=== PATIENT | female | born 1955 | race Hispanic/Latino ===

== ENCOUNTER → 2019-03-11 | Outpatient (CLI) | payer OTHER | END | disposition home or self-care (01) | LOC: RAH 15:30 | PROVIDERS: ATTEND Internal Medicine | DX: M16.12 Unilateral primary osteoarthritis, left hip (principal) | CPT/HCPCS: 73502 ==

== ENCOUNTER → 2023-08-03 | Outpatient (CLI) | payer OTHER | END | disposition home or self-care (01) | LOC: RAH 10:47 | PROVIDERS: ATTEND Internal Medicine | DX: S09.93XA Unspecified injury of face, initial encounter (principal); X58.XXXA Exposure to other specified factors, initial encounter; Y93.89 Activity, other specified; Y92.89 Other specified places as the place of occurrence of the external cause; Y99.8 Other external cause status | CPT/HCPCS: 70150; 70250 ==

== ENCOUNTER → 2023-12-21 | Outpatient (CLI) | payer OTHER ==
[~2023-12-21] MED LIST: AEC81 PO; ASCO100033 PO; ATOR20TA65 PO; EMPA10TA PO; GLIM4TAB36 PO; HYDR25TA67 PO; LEFL10TA19 PO; MAGN200T4 PO; METF-444 PO; METO-409 PO; PYRI100L2 PO; TICA90TA PO; VIT1CAPS49 PO; calcium; folic acid PO
== END | disposition home or self-care (01) ==
LOC: RAH 13:17
PROVIDERS: ATTEND Internal Medicine
DX: R22.41 Localized swelling, mass and lump, right lower limb (principal)
CPT/HCPCS: 73610; 93971

== ENCOUNTER → 2024-07-04 | Outpatient (CLI) | payer OTHER ==
[2024-07-04] MEDS: REGADENOSON 0.4 MG/5 ML PF SYG IVP SCH (11:22)
== END | disposition home or self-care (01) ==
LOC: RAH 08:49
PROVIDERS: ATTEND Internal Medicine Interventional Cardiology
DX: R07.9 Chest pain, unspecified (principal)
CPT/HCPCS: 78452; 93017; J2785; A9500 ×2

== ENCOUNTER → 2024-09-12 | Outpatient (CLI) | payer OTHER ==
--- NOTE | 2024-09-12 13:54 | HMCIMG ---
MRI LUMBAR SPINE WITHOUT CONTRAST INDICATION: M48.061 spinal stenosis, lumbar region without neurogenic claudication, pain runs to right lower extremity COMPARISON: None PARAMETERS: Long and short axis fat and water weighted sequences were obtained through the lumbar spine. FINDINGS: Normal lordosis of the lumbar spine is maintained. The lumbar vertebral bodies are normal in height, without evidence for acute compression fracture or osseous marrow replacing process. The conus medullaris is normal in signal and terminates at the appropriate level. Multilevel mild anterior endplate osteophytic spurring. Small nonmarginal syndesmophyte arises anteriorly at the L2-L3 level. T12-L1: No significant disc displacement, neuroforaminal narrowing, or central canal stenosis. Nominal right facet disease. L1-L2: No significant disc displacement, neuroforaminal narrowing, or central canal stenosis. Mild to moderate right facet disease. L2-L3: Shallow posterior disc displacement, including shallow left foraminal disc protrusion greater than shallow right foraminal disc displacement, mild enlargement of the posterior epidural fat pad, and mild disc height loss contributing to mild central canal stenosis and mild left neuroforaminal narrowing. L3-L4: Shallow posterior disc displacement and, including rods based left foraminal disc protrusion greater than right foraminal disc displacement, mild disc height loss, mild bilateral ligamentum flavum hypertrophy, and mild left facet disease contributing to moderate left neuroforaminal narrowing and mild right inferior neural foraminal narrowing without any significant central canal stenosis. L4-L5: Broad-based right foraminal disc protrusion, extremely shallow posterior disc displacement, mild disc height loss, and nominal bilateral facet disease contributing to severe right neuroforaminal narrowing without any significant central canal stenosis. L5-S1: Extremely shallow posterior rightward disc displacement with larger right foraminal component, moderate right disc height loss, and mild right facet disease contributing to severe right neural foraminal narrowing without any significant central canal stenosis. No evidence for intraannular tear or discitis. The pre- and paraspinous soft tissues appear normal. ANCILLARY FINDINGS: None. IMPRESSION: 1. Severe right neuroforaminal narrowing at the L4-L5 and L5-S1 levels. 2. Moderate left neuroforaminal narrowing and mild right inferior neural foraminal narrowing at the L3-L4 level. 3. Level by level analysis, additional minor degenerative changes, and pertinent negatives as reported.
== END | disposition home or self-care (01) ==
LOC: RAH 12:36
PROVIDERS: ATTEND Internal Medicine
DX: M47.815 Spondylosis without myelopathy or radiculopathy, thoracolumbar region (principal); M47.896 Other spondylosis, lumbar region; M48.07 Spinal stenosis, lumbosacral region
CPT/HCPCS: 72148

== ENCOUNTER 2024-12-03 22:52 | Emergency (ER) | payer OTHER ==
[~2024-12-03] VITALS: Ht 149.9 cm; Wt 65.3 kg
[~2024-12-03 22:52] MED LIST changes: -ASCO100033 PO; -ATOR20TA65 PO; +ATOR40TA71 PO; +CLOP75TA32 PO; -EMPA10TA PO; -HYDR25TA67 PO; +INSU3INS3 SQ; +ISOS30TA92 PO; +LORA10TA7 PO; +MAGN100T5 PO; -MAGN200T4 PO; -METF-444 PO; +METO-391 PO; -METO-409 PO; +NIFE-78 PO; +NITR0.4T SL; +SPIR25TA6 PO; -TICA90TA PO; -VIT1CAPS49 PO; -calcium; -folic acid PO
[2024-12-03 23:58] LABS: BASOPHILS # (AUTO) 0.06 K/uL (0.00-0.20); EOSINOPHILS # (AUTO) 0.12 K/uL (0.00-0.70); IMMATURE GRANULOCYTE ABSOLUTE 0.02 K/uL (0-1); LYMPHOCYTES # (AUTO) 0.9 K/uL (1.0-4.8); LYMPHOCYTES % (AUTO) 15.8 % (21.0-51.0); MEAN CORPUSCULAR HEMOGLOBIN 30.9 pg (27.0-33.0); MEAN CORPUSCULAR HGB CONC 33.1 g/dL (32.0-36.0); MEAN CORPUSCULAR VOLUME 93.5 fL (79-99); MONOCYTES # (AUTO) 0.5 K/uL (0.1-1.0); MONOCYTES % (AUTO) 7.6 % (3.0-13.0); NEUTROPHILS # (AUTO) 4.3 K/uL (1.8-7.7); NEUTROPHILS % (AUTO) 73.3 % (40.0-77.0); PLATELET COUNT (AUTO) 288 K/uL (130-400); RED BLOOD CELL COUNT(AUTO) 4.17 MIL/uL (4.00-5.50); RED CELL DISTRIBUTION WIDTH 12.7 % (11.0-15.5); WHITE BLOOD COUNT (AUTO) 5.9 K/uL (4.8-10.8)
[2024-12-04 00:06] LABS: POTASSIUM 4.3 mmol/L (3.5-5.1)
[2024-12-04 00:22] LABS: B-TYPE NATRIURETIC PEPTIDE 217 pg/mL (0-100)
--- NOTE | 2024-12-04 00:47 | ERN ---
ED Note History of Present Illness Stated Complaint: C/O PALPITATIONS W/ HEADACHE Chief Complaint: Palpitations Time Seen by MD: 23:16 Time Seen by Midlevel: 23:20 Dictation: Ms. Milligan is a 69 year old female history of CAD/NSTEMI/PCI, hypertension, hyp erlipidemia, type 2 diabetes, CKD, GERD, rheumatoid arthritis, osteoporosis, and lumbar stenosis who presented to the emergency department this evening for evaluation of palpitations. She states that this morning when she woke up she felt her heart was racing. This happened again this evening prompting her to come to the hospital. She states that palpitations occur at rest. Each time she experienced this racing and fluttering in the chest she took three sublingual nitroglycerin tablets. She did deny having any chest pain. She also denies fever, chills, shortness of breath, cough, chest pain, palpitations, edema, abdominal pain, nausea, vomiting, hematemesis, constipation, diarrhea, melena, hematochezia, dysuria, headache, dizziness, or focal weakne ss/paresthesia. She was discharged from the hospital on 11/21 following admission for NSTEMI and pericardial effusion. Cardiology was consulted and she underwent left heart catheterization with stent placed to left circumflex. She states she has follow up appointment with Dr. Baxter tomorrow. Allergies: Coded Allergies: lisinopril (Unverified Allergy, Intermediate, 11/02/23) morphine (Unverified Allergy, Intermediate, 11/02/23) Penicillins (Unverified Allergy, Unknown, 11/02/23) Uptrlwb-RDB-GiS Reductase Inhibitor (Unverified Allergy, Unknown, 11/02/23) amlodipine (Unverified Allergy, Unknown, 11/02/23) dapagliflozin (Unverified Allergy, Unknown, 11/02/23) diphenhydramine (Unverified Allergy, Unknown, 11/02/23) hydralazine (Unverified Allergy, Unknown, 11/18/24) DOES NOT RECALL BUT STATES HAS ALLERGY losartan (Unverified Allergy, Unknown, 11/02/23) pentazocine (Unverified Allergy, Unknown, 11/02/23) saxagliptin (Unverified Allergy, Unknown, 11/02/23) valsartan (Unverified Allergy, Unknown, 11/02/23) Home Meds Active Scripts Isosorbide Mononitrate (Isosorbide Mononitrate ER) 30 Mg Tab.er.24h, 1 TAB PO DAILY for 30 Days, #30 TAB 0 Refills Prov:MARIAH REECE MD 11/19/24 Nifedipine (Nifedipine ER) 30 Mg Tablet.er, 1 TAB PO DAILY for 30 Days, #30 TAB 3 Refills Prov:MARIAH REECE MD 11/19/24 Nitroglycerin (Nitrostat) 0.4 Mg Tab.subl, 1 TAB SL AD for chest pain, #25 TAB 3 Refills 1st sign of attack; may repeat every 5 mins; if pain persists after 3 in 15 min, medical attention is recommended Prov:MARIAH REECE MD 11/19/24 Atorvastatin Calcium (Atorvastatin Calcium) 40 Mg Tablet, 1 TAB PO DAILY for 100 Days, #100 TAB 1 Refill Prov:MARIAH REECE MD 11/19/24 Clopidogrel Bisulfate (Clopidogrel) 75 Mg Tablet, 1 TAB PO DAILY for 30 Days, #30 TAB 0 Refills Prov:MARIAH REECE MD 11/18/24 Metoprolol Succinate (Metoprolol Succinate) 50 Mg Tab.er.24h, 1 TAB PO DAILY for 30 Days, #30 TAB 0 Refills Prov:MARIAH REECE MD 11/18/24 Spironolactone (Spironolactone) 25 Mg Tablet, 1 TAB PO DAILY for 30 Days, #30 TAB 0 Refills Prov:MARIAH REECE MD 11/18/24 Loratadine (Loratadine) 10 Mg Tablet, 1 TAB PO DAILY for allergy symptoms for 30 Days, #30 TAB 0 Refills Prov:MARIAH REECE MD 11/18/24 Insulin Glargine,Hum.rec.anlog (Lantus Solostar) 100 Unit/Ml (3 Ml) Insuln.pen, 30 UNIT SQ DAILY for 30 Days, #15 ML 0 Refills Prov:MARIAH REECE MD 11/18/24 Leflunomide (Leflunomide) 10 Mg Tablet, 10 MG PO DAILY, #90 TAB 1 Refill Prov:MARIAH REECE MD 11/02/23 Aspirin (ASPIRIN 81 MG ECTAB) 81 Mg Ectab, 81 MG PO DAILY for 30 Days, #90 TAB.EC 1 Refill Prov:MARIAH REECE MD 11/02/23 Reported Medications Pyridoxine HCl (Vitamin B6) (Vitamin B6) 100 Mg/2.5 Ml Liquid, 100 MG PO DAILYLUNCH 11/18/24 Magnesium Amino Acid Chelate (Magnesium) 100 Mg Tablet, 100 MG PO DAILY, TAB 11/18/24 Glimepiride (Glimepiride) 4 Mg Tablet, 4 MG PO BID, TAB 11/02/23 Past Medical History Past Medical History: Diabetes-Type II, Fibromyalgia, High Cholesterol, Hypertension, ME, Other Additional Past Medical Hx: RHEUMATOID ARTHRITIS, SHINGLES Surgical History: Hysterectomy, CABG, BTL Surgical History Other: CABF X 4, KNEE LEFT, CARPEL TUNNEL RT HAND,CARDIAC STENT PSYCH History: no pertinent psych hx History: Not Applicable RN Note Reviewed/Agreed w/PFSH: Yes Review of System Dictation REVIEW OF SYSTEMS: CONSTITUTIONAL: Patient denies fevers, chills, sweats and weight changes. EYES: Patient denies any visual symptoms. EARS, NOSE, AND THROAT: No difficulties with hearing. No symptoms of rhinitis or sore throat. CARDIOVASCULAR: Patient denies chest pains, orthopnea and paroxysmal nocturnal dyspnea. Reports recent left heart catheterization with stent. Reports palpitations/rapid heart rate. RESPIRATORY: No dyspnea on exertion, no wheezing or cough. GI: No nausea, vomiting, diarrhea, constipation, abdominal pain, hematochezia or melena. : No urinary hesitancy or dribbling. No nocturia or urinary frequency. No abnormal urethral discharge. MUSCULOSKELETAL: No myalgias or arthralgias. NEUROLOGIC: No chronic headaches, no seizures. Patient denies numbness, tingling or weakness. PSYCHIATRIC: Patient denies problems with mood disturbance. No problems with anxiety. ENDOCRINE: No excessive urination or excessive thirst. DERMATOLOGIC: Patient denies any rashes or skin changes. Initial Vital Sign VS Vital Signs Date Time Temp Pulse Resp B/P (MAP) Pulse Ox O2 Delivery O2 Flow Rate FiO2 12/03/24 22:54 98.6 93 20 200/79 98 Room Air 12/03/24 23:51 0 21 Physical Exam Dictation Vital signs: Reviewed. 156/66. Afebrile. Constitutional: No acute distress. Non-toxic appearing. Head/Face: Normocephalic, atraumatic. Eyes: Periorbital areas with no swelling, redness, or edema. Lids and lashes are normal. Conjunctival injection is absent. Sclera anicteric. Pupils equal, round, reactive to light. ENT: Pinnas intact and no signs of trauma or erythema. Ear canals clear and no discharge. TMs no erythema. No nasal discharge or bleeding noted. Oropharynx with no exudate, redness, swelling, masses, exudates, or evidence of obstruction. Uvula midline. Mucous membranes moist. Neck: Trachea midline, no masses palpated, and no cervical lymphadenopathy. No swelling. Supple, full range of motion. Chest/Axilla: No tenderness, no crepitus, no paradoxical movement, no retrac tions. Cardiovascular: Regular rate, regular rhythm, no murmur, no gallops. Symmetric pulses. No peripheral edema. Chest pain 0/10. Twelve lead EKG reflects a sinus rhythm without ST elevation or depression; rate 84. BP Respiratory: Respirations even and unlabored. Lung sounds clear; no wheezes, rales or rhonchi. Room air SpO2 96% Gastrointestinal: Inspection is normal. No distention is appreciated. Bowel sounds are normal. No mass or organomegaly . There is no tenderness. No rebound. No rigidity. No voluntary or involuntary guarding. No Cruz's sign. Neurological: Normal speech, gross motor function intact, gross sensory function intact. No focal weakness/Paresthesia. Musculoskeletal/Extremities: All extremities have full range of motion, no pain or tenderness on palpation. Symmetric pulses. Integumentary: Intact. Skin is normal color, warm and dry. Cap refill less than 3 seconds. Results (Laboratory/Radiology) Laboratory/Radiology Laboratory Tests Test 12/03/24 23:49 12/04/24 00:04 White Blood Count 5.9 K/uL (4.8-10.8) Red Blood Count 4.17 MIL/uL (4.00-5.50) Hemoglobin 12.9 g/dL (12.0-16.0) Hematocrit 39.0 % (36-48) Mean Corpuscular Volume 93.5 fL (79-99) Mean Corpuscular Hemoglobin 30.9 pg (27.0-33.0) Mean Corpuscular Hemoglobin Concent 33.1 g/dL (32.0-36.0) Red Cell Distribution Width 12.7 % (11.0-15.5) Platelet Count 288 K/uL (130-400) Mean Platelet Volume 9.9 fL (7.5-10.5) Immature Granulocyte % (Auto) 0.3 % (0-1) Neutrophils (%) (Auto) 73.3 % (40.0-77.0) Lymphocytes (%) (Auto) 15.8 % (21.0-51.0) L Monocytes (%) (Auto) 7.6 % (3.0-13.0) Eosinophils (%) (Auto) 2.0 % (0.0-8.0) Basophils (%) (Auto) 1.0 % (0.0-5.0) Neutrophils # (Auto) 4.3 K/uL (1.8-7.7) Lymphocytes # (Auto) 0.9 K/uL (1.0-4.8) L Monocytes # (Auto) 0.5 K/uL (0.1-1.0) Eosinophils # (Auto) 0.12 K/uL (0.00-0.70) Basophils # (Auto) 0.06 K/uL (0.00-0.20) Absolute Immature Granulocyte (auto 0.02 K/uL (0-1) Nucleated Red Blood Cells 0.0 % (0.0-0.19) Sodium Level 137 mmol/L (136-145) Potassium Level 4.3 mmol/L (3.5-5.1) Chloride Level 99 mmol/L (101-111) L Carbon Dioxide Level 32 mmol/L (21-32) Blood Urea Nitrogen 22 mg/dL (7-18) H Creatinine 1.0 mg/dL (0.5-1.0) Glomerular Filtration Rate Calc 61 mL/min (>90) Random Glucose 365 mg/dL (70-105) H Total Calcium 9.2 mg/dL (8.5-10.1) Troponin I High Sensitivity 26 ng/L (4-50) B-Type Natriuretic Peptide 217 pg/mL (0-100) H Urine Color COLORLESS (YELLOW) Urine Appearance CLEAR (CLEAR) Urine pH 7.5 (5.0-8.0) Urine Specific Latty 1.005 (1.001-1.031) Urine Protein 20 mg/dL (NEGATIVE) H Urine Glucose (UA) >=1000 mg/dL (NEGATIVE) H Urine Ketones NEGATIVE mg/dL (NEGATIVE) Urine Occult Blood NEGATIVE (NEGATIVE) Urine Nitrate NEGATIVE (NEGATIVE) Urine Bilirubin NEGATIVE mg/dL (NEGATIVE) Urine Urobilinogen 0.2 mg/dL (0.2-1.0) Urine Leukocyte Esterase NEGATIVE Kathryn/uL Urine RBC None /HPF (0-1) Urine WBC 0-1 /HPF (0-1) Urine Squamous Epithelial Cells RARE /HPF (0-2) Urine Bacteria RARE /HPF (None Seen) Labs Reviewed?: Yes EKG Comment: EKG Interpretation: Time Reviewed: 2302 Ventricular rate:84 bpm FL Interval: 132 ms QRS duration: [address] segment elevation or depression. Clinical impression: Sinus rhythm EKG Reviewed and interpreted by Dr. Dylan Johnson ED Course ED Course Orders Procedure Category Date Status Time 12 Lead Ekg Tracing- EKG 12/03/24 Logged Technical 23:29 Cbc With Differential LAB 12/03/24 Complete 23:29 Basic Metabolic Panel LAB 12/03/24 Complete 23:29 Troponin I High LAB 12/03/24 Complete Sensitivity 23:29 Chest 1vw RAD 12/03/24 Taken 23:29 B-Type Natriuretic LAB 12/03/24 Complete Peptide 23:29 Insulin Regular, PHA 12/04/24 Complete Human 3ml (Humulin R 01:00 Metoprolol Succinate PHA 12/04/24 Complete (Toprol Xl) 01:00 Urinalysis LAB 12/04/24 Complete W/Microscopic 00:04 Random Accucheck At CPOE 12/04/24 Transmitted Bedside 01:49 Current Medications Medications (Trade) Dose Ordered Sig/Sameera Route PRN Reason Start Time Stop Time Status Last Admin Dose Admin Insulin Human Regular (humuLIN R 100 UNIT/ML 3ML) 5 unit ONCE ONCE IV 12/04/24 01:00 12/04/24 01:01 DC 12/04/24 01:23 Metoprolol Succinate (TopROL XL) 25 mg ONCE ONCE PO 12/04/24 01:00 12/04/24 01:01 DC 12/04/24 01:23 Vital Signs Date Time Temp Pulse Resp B/P (MAP) Pulse Ox O2 Delivery O2 Flow Rate FiO2 12/04/24 01:51 98.6 89 18 162/57 97 Room Air* 0 21 12/03/24 23:51 98.6 87 18 172/65 97 Room Air* 0 21 12/03/24 22:54 98.6 93 20 200/79 98 Room Air HR has not increased > 90. Sinus rhythm. She denies chest pain. Twelve lead EKG reflects a sinus rhythm without ST elevation or depression. Laboratory findings as noted below. No elevation of WBCs. H&H are stable. Cl 99, BUN 22, glucose 365, BNP 217, and troponin 26. I spoke with Dr. Mariah Reece who recommends increasing Metoprolol to BID and to discharge to home with follow up with Dr. Baxter later today as previously scheduled. Patient given copies of lab/EKG to take to follow up. She received doses Regular insulin and Metoprolol. Repeat accu-check 236. Medical Decision Making MDM MDM: Differential diagnosis: Arrhythmia, ACS, electrolyte derangement Rationale: Tests considered and ordered secondary to shared decision making include: EKG, x-ray, lab Previous outside records reviewed: Old ER visits. Risk of complication and/or morbidity or mortality of patient management: None Medications-Per medication reconciliation Need for hospitalization: Patient does not meet criteria for hospitalization. Need for emergency major/minor surgery: No There are no social concerns with this patient. Prescription drug management: Increase Metoprolol to b.i.d.. Prescriptions will include symptomatic care Patient's prior external medical records from other ER visits were reviewed by me as indicated. Prior testing and results from previous visits were reviewed. Prior tests were taken into account with medical decision making and resource utilization, independent historian/historians were used to obtain complete medical history. I independently interpreted the test that were performed, results were reviewed by me and considered findings on radiology if ordered. Medical management and examination interpretation discussions were had by me with other qualified healthcare professionals as indicated for the patient's care. DX & DISP Disposition: Discharge Departure Impression: Primary Impression: Palpitations Additional Impressions: Hypertension, Type 2 diabetes mellitus with hyperglycemia Condition: Stable Additional Instructions: Keep log of symptoms and blood pressure readings. Dr. Reece recommends increased Metoprolol to twice daily. Follow up later today with Dr. Baxter. Your blood sugar was also elevated today; continue insulin per regimen. You should keep a record of glucoser readings to share with Dr. Reece. Return to ED for any worsening of symptoms or concerns. Referrals: MARIAH REECE MD (PCP) BROOK BAXTER MD Time of Disposition: 01:04 SANTY MCNALLY NP Dec 04, 2024 00:47
[2024-12-04] MEDS: metOPROLol sucCINATE 25 MG TAB.SR.24H PO ONE (01:23)
[2024-12-04] MEDS: INSULIN humuLIN R 100 UNIT/ML 3ML IV ONE (01:23)
[2024-12-04 01:47] LABS: APPEARANCE,URINE CLEAR (CLEAR); BACTERIA,URINE RARE /HPF (None Seen); BILIRUBIN,URINE NEGATIVE (NEGATIVE); COLOR,URINE COLORLESS (YELLOW); GLUCOSE, URINE (UA) >=1000 mg/dL (NEGATIVE); KETONES,URINE NEGATIVE (NEGATIVE); LEUKOCYTE ESTERASE ,URINE NEGATIVE Leu/uL (NEGATIVE); NITRATE,URINE NEGATIVE (NEGATIVE); OCCULT BLOOD,URINE NEGATIVE (NEGATIVE); PH,URINE 7.5 (5.0-8.0); PROTEIN,URINE 20 mg/dL (NEGATIVE); SQUAMOUS EPITHELIAL CELL,UR RARE /HPF (0-2); UROBILINOGEN,URINE 0.2 mg/dL (0.2-1.0); WBC,URINE 0-1 /HPF (0-1)
[2024-12-04 01:51] VITALS: BP 162/57; PULSE 89; RESP 18; TEMP 98.6; O2SAT 97
--- NOTE | 2024-12-04 06:40 | EKG ---
[facility] Test Date: 2024-12-03 Test Time: 23:03:21 Pat Name: PEDRO REYEZ Department: ED Room: Gender: F Mat Weaver: [id number] : 1955 Requested By: SANTY MCNALLY Order Number: [id number] Reading MD: Anna Brock Measurements Intervals [place] Rate: 84 P: 46 NV: 132 QRS: -46 QRSD: 114 T: 58 QT: 375 QTc: 444 Interpretive Statements Sinus rhythm Left anterior fascicular block Probable left ventricular hypertrophy Compared to ECG 11/19/2024 04:50:41 Left anterior fascicular block now present Electronically Signed On 12-04-2024 09:10:45 CDT by Anna Brock Please click the below link to view image of tracing.
--- NOTE | 2024-12-04 08:40 | HMCIMG ---
Exam Type: CHEST 1VW Clinical Information: chest pain Comparison: None Findings: There is cardiomegaly and there is status post median sternotomy. The lungs are clear of infiltrates. Impression: Clear lungs.
== END 2024-12-04 02:15 | disposition home or self-care (01) ==
LOC: EDH 22:52
DX: R00.2 Palpitations (principal); E11.65 Type 2 diabetes mellitus with hyperglycemia; I10 Essential (primary) hypertension; E78.00 Pure hypercholesterolemia, unspecified; M79.7 Fibromyalgia; Z79.02 Long term (current) use of antithrombotics/antiplatelets; Z79.4 Long term (current) use of insulin; Z79.69 Long term (current) use of other immunomodulators and immunosuppressants; Z79.82 Long term (current) use of aspirin; Z79.899 Other long term (current) drug therapy; Z88.0 Allergy status to penicillin; Z88.5 Allergy status to narcotic agent; Z88.8 Allergy status to other drugs, medicaments and biological substances; Z90.710 Acquired absence of both cervix and uterus; Z95.1 Presence of aortocoronary bypass graft; Z95.5 Presence of coronary angioplasty implant and graft; Z98.890 Other specified postprocedural states
CPT/HCPCS: 99285; 71045; 84484; 80048; 83880; 85025; 82948; 81001; 36415; 93005; 96374; J1815

== ENCOUNTER 2025-05-26 18:49 | Inpatient (IN) | payer OTHER ==
[~2025-05-26] VITALS: Ht 149.9 cm; Wt 63.1 kg
--- NOTE | 2025-05-26 19:09 | ERN ---
ED Note History of Present Illness Stated Complaint: CHEST PAIN Chief Complaint: Chest Pain Time Seen by MD: 19:00 Dictation: PATIENT IS A 69-YEAR-OLD FEMALE COMING IN TODAY WITH COMPLAINTS OF INTERMITTENT LEFT CHEST PAIN THAT RADIATES TO HER LEFT ARM ONSET WAS YESTERDAY AFTERNOON. SHE STATES THE PAIN CAME ON AT REST SHE SAID SHE IMMEDIATELY TOOK A NITROGLYCERIN AND THE PAIN WAS RELIEF. SHE STATES SHE TOOK THREE NITROGLYCERIN YESTERDAY AND TWO TODAY. SIDE AND FINALLY COME TO THE EMERGENCY ROOM FOR FURTHER EVALUATION AND TREATMENT. SHE HAS A SIGNIFICANT CARDIAC HISTORY TO INCLUDE DIABETES HYPERTENSION, HYPERCHOLESTEROLEMIA, CAD WITH TWO PRIOR STENTS AND AN ANGIOPLASTY. 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 CURRENTLY RATES HER PAIN 02/01. Allergies: Coded Allergies: lisinopril (Unverified Allergy, Intermediate, 11/02/23) morphine (Unverified Allergy, Intermediate, 11/02/23) Penicillins (Unverified Allergy, Unknown, 11/02/23) Ifnmzky-LIC-KgN Reductase Inhibitor (Unverified Allergy, Unknown, 11/02/23) amlodipine (Unverified Allergy, Unknown, 11/02/23) dapagliflozin (Unverified Allergy, Unknown, 11/02/23) diphenhydramine (Unverified Allergy, Unknown, 11/02/23) hydralazine (Unverified Allergy, Unknown, 11/18/24) DOES NOT RECALL BUT STATES HAS ALLERGY losartan (Unverified Allergy, Unknown, 11/02/23) pentazocine (Unverified Allergy, Unknown, 11/02/23) saxagliptin (Unverified Allergy, Unknown, 11/02/23) valsartan (Unverified Allergy, Unknown, 11/02/23) Home Meds Active Scripts Isosorbide Mononitrate (Isosorbide Mononitrate ER) 30 Mg Tab.er.24h, 1 TAB PO DAILY for 30 Days, #30 TAB 0 Refills Prov:BARBARA LARA MD 11/19/24 Nifedipine (Nifedipine ER) 30 Mg Tablet.er, 1 TAB PO DAILY for 30 Days, #30 TAB 3 Refills Prov:BARBARA LARA MD 11/19/24 Nitroglycerin (Nitrostat) 0.4 Mg Tab.subl, 1 TAB SL AD for chest pain, #25 TAB 3 Refills 1st sign of attack; may repeat every 5 mins; if pain persists after 3 in 15 min, medical attention is recommended Prov:BARBARA LARA MD 11/19/24 Atorvastatin Calcium (Atorvastatin Calcium) 40 Mg Tablet, 1 TAB PO DAILY for 100 Days, #100 TAB 1 Refill Prov:BARBARA LARA MD 11/19/24 Clopidogrel Bisulfate (Clopidogrel) 75 Mg Tablet, 1 TAB PO DAILY for 30 Days, #30 TAB 0 Refills Prov:BARBARA LARA MD 11/18/24 Metoprolol Succinate (Metoprolol Succinate) 50 Mg Tab.er.24h, 1 TAB PO DAILY for 30 Days, #30 TAB 0 Refills Prov:BARBARA LARA MD 11/18/24 Spironolactone (Spironolactone) 25 Mg Tablet, 1 TAB PO DAILY for 30 Days, #30 TAB 0 Refills Prov:BARBARA LARA MD 11/18/24 Loratadine (Loratadine) 10 Mg Tablet, 1 TAB PO DAILY for allergy symptoms for 30 Days, #30 TAB 0 Refills Prov:BARBARA LARA MD 11/18/24 Insulin Glargine,Hum.rec.anlog (Lantus Solostar) 100 Unit/Ml (3 Ml) Insuln.pen, 30 UNIT SQ DAILY for 30 Days, #15 ML 0 Refills Prov:BARBARA LARA MD 11/18/24 Leflunomide (Leflunomide) 10 Mg Tablet, 10 MG PO DAILY, #90 TAB 1 Refill Prov:BARBARA LARA MD 11/02/23 Aspirin (ASPIRIN 81 MG ECTAB) 81 Mg Ectab, 81 MG PO DAILY for 30 Days, #90 TAB.EC 1 Refill Prov:BARBARA LARA MD 11/02/23 Reported Medications Carvedilol (Carvedilol) 3.125 Mg Tablet, 1.25 MG PO BID, TAB 05/26/25 Atorvastatin Calcium (Atorvastatin Calcium) 20 Mg Tablet, 1 TAB PO DAILY for 30 Days, #30 TAB 0 Refills 05/26/25 Glimepiride (Glimepiride) 4 Mg Tablet, 1 TAB PO DAILY for 30 Days, #30 TAB 0 Refills 05/26/25 Nitroglycerin (Nitroglycerin) 0.4 Mg Tab.subl, 1 TAB SL AD for chest pain, #25 T AB 0 Refills 1st sign of attack; may repeat every 5 mins; if pain persists after 3 in 15 min, medical attention is recommended 05/26/25 Spironolactone (Spironolactone) 25 Mg Tablet, 1 TAB PO DAILY for 30 Days, #30 TAB 0 Refills 05/26/25 Pyridoxine HCl (Vitamin B6) (Vitamin B6) 100 Mg/2.5 Ml Liquid, 100 MG PO DAILYLUNCH 11/18/24 Magnesium Amino Acid Chelate (Magnesium) 100 Mg Tablet, 100 MG PO DAILY, TAB 11/18/24 Glimepiride (Glimepiride) 4 Mg Tablet, 4 MG PO BID, TAB 11/02/23 Past Medical History Past Medical History: Diabetes-Type II, Fibromyalgia, High Cholesterol, Hypertension, [place], Other Additional Past Medical Hx: RHEUMATOID ARTHRITIS, SHINGLES Surgical History: Hysterectomy, CABG, BTL Surgical History Other: CABF X 4, KNEE LEFT, CARPEL TUNNEL RT HAND,CARDIAC STENT History: Not Applicable RN Note Reviewed/Agreed w/PFSH: Yes Review of System Dictation CONSTITUTIONAL: NEGATIVE EXCEPT FOR HPI HEAD/FACE: NEGATIVE EXCEPT FOR HPI EENT: NEGATIVE EXCEPT FOR HPI RESPIRATORY: NEGATIVE EXCEPT FOR HPI LEFT CHEST PAIN THAT RADIATES TO LEFT ARM GASTROINTESTINAL/ABDOMINAL: NEGATIVE EXCEPT FOR HPI GENITOURINARY: NEGATIVE EXCEPT FOR HPI MUSCULOSKELETAL: NEGATIVE EXCEPT FOR HPI INTEGUMENTARY: NEGATIVE EXCEPT FOR HPI NEUROLOGICAL/PSYCH: NEGATIVE EXCEPT FOR HPI HEMATOLOGIC/LYMPHATIC: NEGATIVE EXCEPT FOR HPI ALL SYSTEMS NEGATIVE, EXCEPT NOTED ABOVE. 13 POINT REVIEW OF SYSTEMS ASSESSED AND ALL NEGATIVE EXCEPT FOR ABOVE. Initial Vital Sign VS Vital Signs Date Time Temp Pulse Resp B/P (MAP) Pulse Ox O2 Delivery O2 Flow Rate FiO2 05/26/25 18:52 97.5 106 16 153/69 97 Room Air 0 05/26/25 19:40 21 Physical Exam Dictation VITAL SIGNS REVIEWED GENERAL APPEARANCE: ALERT, ORIENTED X 3, MODERATE ACUTE DISTRESS, WELL DEVELOPED, NOURISHED. HEAD AND FACE: NON-TRAUMATIC. EYES: PERRL, PINK CONJUNCTIVAS, EYELID NO TRAUMA, ANTERIOR CHAMBER WITH ARCUS SENILIS. EARS: PINNAS INTACT AND NO SIGNS OF TRAUMA OR ERYTHEMA EAR CANALS CLEAR AND NO DISCHARGE TM NO ERYTHEMA NOSE: NO DISCHARGE, NO BLEEDING. OROPHARYNX: MOUTH NORMAL, TONGUE PINK, PHARYNX CLEAR,NO ERYTHEMA, TONSILS NO EXUDATES, NO ABSCESSES NOTED, MUCOUS MEMBRANE MOIST NECK: SUPPLE, NON-TENDER, NO THYROMEGALY, NO MASSES, NO JVD, NO BRUITS BREAST:DEFERRED CHEST:NO TENDERNESS, NO CREPITUS, NO PARADOXICAL MOVEMENT, NO RETRACTIONS LUNGS:CLEAR, WELL-VENTILATED, SYMMETRIC, NO RALES, NO WHEEZING, NO RHONCHI, NO STRIDOR, GOOD BREATH SOUNDS BILATERALLY HEART: REGULAR RATE, REGULAR RHYTHM, NO MURMUR, NO GALLOPS VASCULAR: 1+ PERIPHERAL EDEMA, ABDOMEN: SOFT, POSITIVE BOWEL SOUNDS, NONDISTENDED, NO GUARDING, NONTENDER, NO REBOUND, NO MASSES NO HEPATOMEGALY, NO SPLENOMEGALY, NO KEITH'S SIGN, NO HERNIAS. RECTAL: DEFERRED GENITAL: DEFERRED NEUROLOGICAL: NORMAL SPEECH, MOTOR FUNCTION INTACT, SENSORY FUNCTION INTACT MUSCULOSKELETAL: NECK NONTENDER, FULL RANGE OF MOTION, BACK NONTENDER, FULL RANGE OF MOTION, EXTREMITIES: NONTENDER, FULL RANGE OF MOTION SKIN: COLOR PINK, DRY, NO TURGOR, NO RASH, NO LACERATIONS, NO ABRASIONS, NO CONTUSIONS. LYMPHATIC: DEFERRED Results (Laboratory/Radiology) Laboratory/Radiology Laboratory Tests Test 05/26/25 20:10 White Blood Count 7.1 K/uL (4.8-10.8) Red Blood Count 4.60 MIL/uL (4.00-5.50) Hemoglobin 14.2 g/dL (12.0-16.0) Hematocrit 43.2 % (36-48) Mean Corpuscular Volume 93.9 fL (79-99) Mean Corpuscular Hemoglobin 30.9 pg (27.0-33.0) Mean Corpuscular Hemoglobin Concent 32.9 g/dL (32.0-36.0) Red Cell Distribution Width 13.1 % (11.0-15.5) Platelet Count 260 K/uL (130-400) Mean Platelet Volume 10.2 fL (7.5-10.5) Immature Granulocyte % (Auto) 0.3 % (0-1) Neutrophils (%) (Auto) 67.1 % (40.0-77.0) Lymphocytes (%) (Auto) 18.1 % (21.0-51.0) L Monocytes (%) (Auto) 8.3 % (3.0-13.0) Eosinophils (%) (Auto) 5.2 % (0.0-8.0) Basophils (%) (Auto) 1.0 % (0.0-5.0) Neutrophils # (Auto) 4.7 K/uL (1.8-7.7) Lymphocytes # (Auto) 1.3 K/uL (1.0-4.8) Monocytes # (Auto) 0.6 K/uL (0.1-1.0) Eosinophils # (Auto) 0.37 K/uL (0.00-0.70) Basophils # (Auto) 0.07 K/uL (0.00-0.20) Absolute Immature Granulocyte (auto 0.02 K/uL (0-1) Nucleated Red Blood Cells 0.0 % (0.0-0.19) Prothrombin Time 10.3 SEC (9.6-11.6) Prothromb Time International Ratio 0.97 (0.85-1.15) Sodium Level 137 mmol/L (136-145) Potassium Level 3.7 mmol/L (3.5-5.1) Chloride Level 99 mmol/L (101-111) L Carbon Dioxide Level 26 mmol/L (21-32) Blood Urea Nitrogen 19 mg/dL (7-18) H Creatinine 1.0 mg/dL (0.5-1.0) Glomerular Filtration Rate Calc 61 mL/min (>90) Random Glucose 280 mg/dL (70-105) H Total Calcium 9.1 mg/dL (8.5-10.1) Troponin I High Sensitivity 533 ng/L (4-50) *H 1940/DEMONSTRATES PRIOR STERNOTOM NO ACUTE DISEASE EXAM: CR Chest, 1 View. CLINICAL HISTORY: CHEST PAIN COMPARISON: None provided. FINDINGS: LUNGS: The lungs show no infiltrate or other acute finding. Mild bibasilar airspace disease is presumed to reflect atelectasis. PLEURAL SPACES: No pleural effusion or pneumothorax. MEDIASTINUM: Prior sternotomy. The cardiomediastinal silhouette is within normal limits. BONES: No acute osseous abnormality. IMPRESSION: No acute cardiopulmonary pathology is evident. /[place] Labs Reviewed?: Yes EKG Comment: 1919/EKG SINUS TACHYCARDIA/HEART RATE 103/LEFT ATRIAL ENLARGEMENT VENTRICULAR HYPERTROPHY. ED Course ED Course Orders Procedure Category Date Status Time Cbc With Differential LAB 05/26/25 Complete 19:04 Chest 1vw RAD 05/26/25 Resulted 19:04 12 Lead Ekg Tracing- EKG 05/26/25 Logged Technical 19:04 Nitroglycerin 0.4mg PHA 05/26/25 In Process Sl Tab (Nitrostat) 19:30 Troponin I High LAB 05/26/25 Complete Sensitivity 19:04 Aspirin 325mg Tab PHA 05/26/25 Complete (Aspirin 325mg Tab) 19:30 Basic Metabolic Panel LAB 05/26/25 Complete 19:04 Oxygen By Nc/Pulse Ox CPOE 05/26/25 Transmitted 19:04 Initiate Heparin BETTY 05/26/25 In Process Treatment Pro 20:51 Heparin 5,000 Unit PHA 05/26/25 In Process Vial (Heparin 5,000 U 22:00 Heparin 25,000 PHA 05/26/25 In Process Units/250ml D5w 22:00 Heparin Protocol CPOE 05/26/25 Transmitted Monitoring 20:51 Nitroglycerin PHA 05/26/25 In Process 50mg/D5w 250ml 21:00 Pt And Ptt LAB 05/26/25 In Process 20:54 Cardiology Consult CONPHYSVC 05/26/25 Transmitted 20:59 Edm Admit Bridge Order ADM 05/26/25 Transmitted 21:06 Current Medications Medications (Trade) Dose Ordered Sig/Sameera Route PRN Reason Start Time Stop Time Status Last Admin Dose Admin Aspirin (Aspirin 325mg Tab) 325 mg ONCE ONCE PO 05/26/25 19:30 05/26/25 19:31 DC 05/26/25 19:29 Heparin Sodium (Porcine) (HEParin 5,000 UNIT VIAL) *calculation based on ACTUAL B... AD PRN IV HEPARIN PROTOCOL 05/26/25 22:00 06/25/25 21:59 Heparin Sodium/ Dextrose 250 ml @ 0 mls/hr Q6H IV 05/26/25 22:00 06/25/25 21:59 Nitroglycerin (Nitrostat) 0.4 mg Q5M PRN SL CHEST PAIN 05/26/25 19:30 Nitroglycerin/ Dextrose 0 ml @ 0 mls/hr AD PRN IV TITRATE 05/26/25 21:00 06/25/25 20:59 Vital Signs Date Time Temp Pulse Resp B/P (MAP) Pulse Ox O2 Delivery O2 Flow Rate FiO2 05/26/25 19:40 98.8 98 18 152/66 100 Room Air* 0 21 05/26/25 18:52 97.5 106 16 153/69 97 Room Air 0 2057/PATIENT HAS A AN ABNORMAL EKG WITH A TROPONIN OF 533. NITROGLYCERIN AND HEPARIN DRIP WERE INITIATED O2 PLACED AT 3 L PER NASAL CANNULA PATIENT HAS ALREADY RECEIVED AN ASPIRIN IS AWARE SHE HAS BEEN ADMITTED TO THE HOSPITAL. ALL QUESTIONS ANSWERED 2107/SPOKE WITH DR. LARA REVIEWED EKG LABS CHEST X-RAY AND INTERVENTIONS FOR NON STEMI I TO INCLUDE OXYGEN, NITRO, ASPIRIN, HEPARIN, NITROGLYCERIN DRIP. SHE AGREED TO ADMIT PATIENT HEART Score Response (Comments) Value Age: > 65yrs (+2) 2 Risk Factors: 3+ risk factors (+2) 2 Initial Troponin: >3x Normal Limit (+2) 2 Total 6 Medical Decision Making MDM MDM: DIFFERENTIAL DIAGNOSIS: ACS/AMI/ELECTROLYTE IMBALANCE/DEHYDRATION/PNEUMONIA/BR ONCHITIS/COSTOCHONDRITIS RATIONALE: TESTS CONSIDERED AND ORDERED SECONDARY TO SHARED DECISION MAKING INCLUDE: LABS, ECG AND RADIOLOGY PREVIOUS OUTSIDE RECORDS REVIEWED: OLD ER VISITS. RISK OF COMPLICATION AND/OR MORBIDITY OR MORTALITY OF PATIENT MANAGEMENT: MODERATE TO SEVERE MEDICATIONS-PER MEDICATION RECONCILIATION NEED FOR HOSPITALIZATION: PATIENT DOES MEET CRITERIA FOR HOSPITALIZATION. PATIENT WILL BE PLACED ON HEPARIN AND NITROGLYCERIN DRIP, SHE WILL NEED CONSULTATION WITH CARDIOLOGY IN THE MORNING NEED FOR EMERGENCY MAJOR/MINOR SURGERY: NO THERE ARE NO SOCIAL CONCERNS WITH THIS PATIENT. PRESCRIPTION DRUG MANAGEMENT PRESCRIPTIONS WILL INCLUDE SYMPTOMATIC CARE PATIENT'S PRIOR EXTERNAL MEDICAL RECORDS FROM OTHER ER VISITS WERE REVIEWED BY ME INDICATED. PRIOR TESTING AND RESULTS FROM PREVIOUS VISITS WERE REVIEWED. PRIOR TESTS WERE TAKEN INTO ACCOUNT WITH MEDICAL DECISION MAKING AND RESOURCE UTILIZATION, INDEPENDENT HISTORIAN/HISTORIANS WERE USED TO OBTAIN COMPLETE MEDICAL HISTORY. I INDEPENDENTLY INTERPRETED THE TEST THAT WERE PERFORMED, RESULTS WERE REVIEWED BY ME AND CONSIDERED FINDINGS ON RADIOLOGY IF ORDERED. MEDICAL MANAGEMENT AND EXAMINATION INTERPRETATION DISCUSSIONS WERE HAD BY ME WITH OTHER QUALIFIED HEALTHCARE PROFESSIONALS INDICATED FOR THE PATIENT'S CARE. DX & DISP Disposition: Inpatient Decision to Admit Time: 21:00 Departure Impression: Primary Impression: Non-STEMI (non-ST elevated myocardial infarction) Additional Impressions: Hypochloremia, Uncontrolled diabetes mellitus, Stage 3 chronic kidney disease Condition: Stable Referrals: BARBARA LARA MD (PCP) I have reviewed the case, and I agree with, Diagnosis and Plan EV CHURCH [facility] May 26, 2025 19:09
[2025-05-26] MEDS: ASPIRIN 325MG TAB PO ONE (19:29)
--- NOTE | 2025-05-26 19:39 | HMCIMG ---
EXAM: CR Chest, 1 View. CLINICAL HISTORY: CHEST PAIN COMPARISON: None provided. FINDINGS: LUNGS: The lungs show no infiltrate or other acute finding. Mild bibasilar airspace disease is presumed to reflect atelectasis. PLEURAL SPACES: No pleural effusion or pneumothorax. MEDIASTINUM: Prior sternotomy. The cardiomediastinal silhouette is within normal limits. BONES: No acute osseous abnormality. IMPRESSION: No acute cardiopulmonary pathology is evident. /[place]
[2025-05-26 20:26] LABS: IMMATURE GRANULOCYTE ABSOLUTE 0.02 K/uL (0-1); NUCLEATED RED BLOOD CELLS 0.0 % (0.0-0.19); PLATELET COUNT (AUTO) 260 K/uL (130-400); RED BLOOD CELL COUNT(AUTO) 4.60 MIL/uL (4.00-5.50); RED CELL DISTRIBUTION WIDTH 13.1 % (11.0-15.5); WHITE BLOOD COUNT (AUTO) 7.1 K/uL (4.8-10.8)
[2025-05-26 20:38] LABS: CREATININE 1.0 mg/dL (0.5-1.0); GLOMERULAR FILTR. RATE CALC 61.0 mL/min (>90); GLUCOSE,RANDOM 280.0 mg/dL (70-105); SODIUM SERUM 137.0 mmol/L (136-145); UREA NITROGEN, BLOOD 19.0 mg/dL (7-18)
[2025-05-26 21:07] LABS: INR 0.97 (0.85-1.15)
[2025-05-26] MEDS: NITROGLYCERIN 50MG/D5W 250ML 1 BOT IV PRN (21:37)
[2025-05-26 22:45] VITALS: BP 153/73; PULSE 80; RESP 17; TEMP 98.2
[2025-05-26 23:00] VITALS: BP 165/50; PULSE 88; RESP 18; O2SAT 99
[2025-05-26 23:15] VITALS: BP 167/79; PULSE 81; RESP 13
[2025-05-26 23:21] VITALS: PULSE 86; RESP 18; O2SAT 98
[2025-05-26 23:30] VITALS: BP 138/65; PULSE 77; RESP 19
[2025-05-26 23:45] VITALS: BP 152/70; PULSE 77; RESP 18
--- NOTE | 2025-05-26 23:46 | HP ---
HISTORY AND PHYSICAL Date of Visit: May 26, 2025 Time of Visit: 23:46 ADMISSION DATE: May 26, 2025 at 21:09 CC: CHEST PAIN HPI: PATIENT IS A 69-YEAR-OLD FEMALE COMING IN TODAY WITH COMPLAINTS OF INTERMITTENT LEFT CHEST PAIN THAT RADIATES TO HER LEFT ARM ONSET WAS YESTERDAY IN THE AFTERNOON. SHE STATES THE PAIN CAME ON AT REST SHE SAID SHE IMMEDIATELY TOOK A NITROGLYCERIN AND THE PAIN WAS RELIEF. SHE STATES SHE TOOK THREE NITRO - GLYCERIN YESTERDAY AND TWO TODAY. SIDE AND FINALLY COME TO THE EMERGENCY ROOM FOR FURTHER EVALUATION AND TREATMENT. SHE HAS A SIGNIFICANT CARDIAC HISTORY TO INCLUDE DIABETES HYPERTENSION, HYPERCHOLESTEROLEMIA, CAD WITH TWO PRIOR STENTS AND AN ANGIOPLASTY. 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 CURRENTLY RATES HER PAIN RESOLVED AFTER TREATMENT IN ER WHICH HAD BEEN AT 02/01 ON PRESENTATION. PAST MEDICAL HISTORY: CAD WIHT HX NON STEMI W PEAK TROPONIN 12K - 10/2024 S/P C WITH SUCCESSFUL PTCA/STENT LCX FAILED RCA REVASCULARIZATION WITH DISTAL/PROX RCA PERFORATION, V-FIB ARREST S/P DEFIB X 3 ECHO WITH TRIVIAL PERICARDIAL EFFUSION W/O TAMPONADE RESOLUTION OF PERICARDIAL EFFUSION EF > 55% DM II ON MCC INSULIN CAD WITH HISTORY OF CORONARY STENTS NON STEMI ON 10/29/2023 RCA ANGIOPLASTY ON 11/02/2023 AT [facility], UNSUCCESSFUL PTCA HYPERTENSIVE HEART AND RENAL DISEASE WITH CKD 2 GERD LUMBAR STENOSIS WITH NEUROGENIC CLAUDICATION OTHER SPECIFIED SPONDYLOPATHY, LUMBAR REGION ATHEROSCLEROSIS OF LEGS BILATERAL RHEUMATOID ARTHRITIS HYPERLIPIDEMIA MIXED OSTEOPOROSIS STATIN MYOPATHY SOCIAL HISTORY: LIVES LOCALLY NO CURRENT ALCOHOL TOBACCO OR DRUG ABUSE FAMILY HISTORY: + CAD HTN DM SUDDEN HYPOTHYROID ^ Patient History: Cardiovascular disease MOTHER FATHER (pacemaker ) SISTER (arhythmias ) Diabetes mellitus SISTER SON SON FH: hypothyroidism FH: kidney failure SON FH: kidney failure SON Hypertension SON SISTER Sudden MOTHER FATHER SON (2021 kidney problems) Allergies: Coded Allergies: lisinopril (Unverified Allergy, Intermediate, 11/02/23) morphine (Unverified Allergy, Intermediate, 11/02/23) Penicillins (Unverified Allergy, Unknown, 11/02/23) Camhbii-XOJ-XcW Reductase Inhibitor (Unverified Allergy, Unknown, 11/02/23) amlodipine (Unverified Allergy, Unknown, 11/02/23) dapagliflozin (Unverified Allergy, Unknown, 11/02/23) diphenhydramine (Unverified Allergy, Unknown, 11/02/23) hydralazine (Unverified Allergy, Unknown, 11/18/24) DOES NOT RECALL BUT STATES HAS ALLERGY losartan (Unverified Allergy, Unknown, 11/02/23) pentazocine (Unverified Allergy, Unknown, 11/02/23) saxagliptin (Unverified Allergy, Unknown, 11/02/23) valsartan (Unverified Allergy, Unknown, 11/02/23) Scheduled Aspirin (Aspirin 81 Mg Ectab), 81 MG PO DAILY Atorvastatin Calcium (Atorvastatin Calcium), 1 TAB PO DAILY, (Reported) Carvedilol (Coreg), 6.25 MG PO BID Clopidogrel Bisulfate (Clopidogrel), 1 TAB PO DAILY Glimepiride (Glimepiride), 1 TAB PO BID Insulin Glargine,Hum.rec.anlog (Lantus Solostar), 30 UNIT SQ DAILY Leflunomide (Leflunomide), 10 MG PO DAILY Magnesium Amino Acid Chelate (Magnesium), 100 MG PO DAILY, (Reported) Nifedipine (Nifedipine ER), 1 TAB PO DAILY Nitroglycerin (Nitroglycerin), 1 TAB SL AD, (Reported) Pyridoxine HCl (Vitamin B6) (Vitamin B6), 100 MG PO DAILYLUNCH, (Reported) Sitagliptin Phosphate (Januvia), 1 TAB PO DAILY Spironolactone (Spironolactone), 1 TAB PO DAILY, (Reported) Sulfasalazine (Sulfasalazine Dr), 1 TAB PO BID Scheduled PRN Loratadine (Loratadine), 1 TAB PO DAILY PRN for NASAL CONGESTION Discontinued Medications Atorvastatin Calcium (Atorvastatin Calcium), 1 TAB PO DAILY Carvedilol (Carvedilol), 1.25 MG PO BID, (Reported) Glimepiride (Glimepiride), 4 MG PO BID, (Reported) Nitroglycerin (Nitrostat), 1 TAB SL AD Review of Systems Normal Constitutional:, Normal Eyes:, Normal Ear/Nose/Mouth/Throat, Normal Respiratory:, Normal Gastrointestinal:, Normal Genitourinary:, Normal Integumentary:, Normal Musculoskeletal:, Normal Neurological:, Normal Psycholo gical:, Normal Endocrine:, Normal Hematologic/Lymphatic:, Normal Allergic/Immunologic:; Abnormal Cardiovascular: (REFER TO HPI) Physical Exam Vital Signs Vital Signs Date Time Temp Pulse Resp B/P (MAP) Pulse Ox O2 Delivery O2 Flow Rate FiO2 05/26/25 18:52 97.5 106 16 153/69 97 Room Air 0 05/26/25 19:40 21 Diagnostics Laboratory Tests Test 05/26/25 20:10 Range/Units White Blood Count 7.1 4.8-10.8 K/uL Red Blood Count 4.60 4.00-5.50 MIL/uL Hemoglobin 14.2 12.0-16.0 g/dL Hematocrit 43.2 36-48 % Mean Corpuscular Volume 93.9 79-99 fL Mean Corpuscular Hemoglobin 30.9 27.0-33.0 pg Mean Corpuscular Hemoglobin Concent 32.9 32.0-36.0 g/dL Red Cell Distribution Width 13.1 11.0-15.5 % Platelet Count 260 130-400 K/uL Mean Platelet Volume 10.2 7.5-10.5 fL Immature Granulocyte % (Auto) 0.3 0-1 % Neutrophils (%) (Auto) 67.1 40.0-77.0 % Lymphocytes (%) (Auto) 18.1 21.0-51.0 % Monocytes (%) (Auto) 8.3 3.0-13.0 % Eosinophils (%) (Auto) 5.2 0.0-8.0 % Basophils (%) (Auto) 1.0 0.0-5.0 % Neutrophils # (Auto) 4.7 1.8-7.7 K/uL Lymphocytes # (Auto) 1.3 1.0-4.8 K/uL Monocytes # (Auto) 0.6 0.1-1.0 K/uL Eosinophils # (Auto) 0.37 0.00-0.70 K/uL Basophils # (Auto) 0.07 0.00-0.20 K/uL Absolute Immature Granulocyte (auto 0.02 0-1 K/uL Nucleated Red Blood Cells 0.0 0.0-0.19 % Prothrombin Time 10.3 9.6-11.6 SEC Prothromb Time International Ratio 0.97 0.85-1.15 Activated Partial Thromboplast Time 27.1 26.3-35.5 SEC Sodium Level 137 136-145 mmol/L Potassium Level 3.7 3.5-5.1 mmol/L Chloride Level 99 101-111 mmol/L Carbon Dioxide Level 26 21-32 mmol/L Blood Urea Nitrogen 19 7-18 mg/dL Creatinine 1.0 0.5-1.0 mg/dL Glomerular Filtration Rate Calc 61 >90 mL/min Random Glucose 280 70-105 mg/dL Total Calcium 9.1 8.5-10.1 mg/dL Troponin I High Sensitivity 533 4-50 ng/L Assessment/Plan Assessment/Plan ASSESSMENT: CAD WIHT HX NON STEMI W PEAK TROPONIN 12K - 10/2024 S/P C WITH SUCCESSFUL PTCA/STENT LCX FAILED RCA REVASCULARIZATION WITH DISTAL/PROX RCA PERFORATION, V-FIB ARREST S/P DEFIB X 3 ECHO WITH TRIVIAL PERICARDIAL EFFUSION W/O TAMPONADE RESOLUTION OF PERICARDIAL EFFUSION EF > 55% DM II ON MCC INSULIN CAD WITH HISTORY OF CORONARY STENTS NON STEMI ON 10/29/2023 RCA ANGIOPLASTY ON 11/02/2023 AT [facility] [place], UNSUCCESSFUL PTCA HYPERTENSIVE HEART AND RENAL DISEASE WITH CKD 2 GERD LUMBAR STENOSIS WITH NEUROGENIC CLAUDICATION OTHER SPECIFIED SPONDYLOPATHY, LUMBAR REGION ATHEROSCLEROSIS OF LEGS BILATERAL RHEUMATOID ARTHRITIS HYPERLIPIDEMIA MIXED OSTEOPOROSIS STATIN MYOPATHY SHE PRESENTED WITH A NONSTEMI PLAN: STARTED ON NTG DRIP TO KEEP CP FREE STARTED ON IV HEPARIN PROTOCOL CONT ASA PLAVIX STATIN THERAPY CONT COREG AND NIFEDIPINE AND HYDRALAZINE FOR HTN CONTROL WITH ADJUSTMENTS NEEDED CONT SERIAL CARDIAC ENZYMES CONSULT CARDIOLOGY FOR ANY FURTHER INPUT O2 PER NC PRN MONITOR GLUCOSE AND ADJUST INSULIN NEEDED SUPPLEMENT ELECTROLYTES BARBARA LARA MD May 26, 2025 23:46
[2025-05-27] VITALS (63 sets, daily range): BP systolic 128–178; BP diastolic 50–90; PULSE 68–88; RESP 14–29; TEMP 97.3–98.8; O2SAT 95–99
[2025-05-27] MEDS ORDERED: NITROGLYCERIN 0.4 MG SL TAB SL SCH
[2025-05-27] MEDS ORDERED: LORATAdine 10 mg 10 MG TABLET PO PRN
[2025-05-27] MEDS ORDERED: DEXTROSE 50%-WATER 50 ML DISP.SYRIN IV PRN (00:30)
[2025-05-27] MEDS ORDERED: PoTASSium chl 10% ELIXIR 20MEQ 20 MEQ/15 ML UDCUP PO PRN (00:30)
[2025-05-27] MEDS ORDERED: GLUCAGON 1MG KIT 1 MG ML IM PRN (00:30)
--- NOTE | 2025-05-27 00:41 | EKG ---
[facility] Test Date: 2025-05-26 Test Time: 18:50:11 Pat Name: PEDRO REYEZ Department: [facility] Room: 220 Gender: F Retail Department Reset: [phone] : [phone] Requested By: EV CHURCH Order Number: [id number] Reading MD: Yusuf Barksdale Measurements Intervals [place] Rate: 103 P: 71 [place]: 165 QRS: -57 QRSD: 102 T: 80 QT: 353 QTc: 462 Interpretive Statements Sinus tachycardia Probable left atrial enlargement LAD, consider left anterior fascicular block LVH with secondary repolarization abnormality Electronically Signed On 06-01-2025 13:02:42 [employer]IATE [employer] MANAGER by Yusuf Barksdale Please click the below link to view image of tracing.
[2025-05-27 05:01] LABS: NUCLEATED RED BLOOD CELLS 0.0 % (0.0-0.19); PLATELET COUNT (AUTO) 177.0 K/uL (130-400); RED BLOOD CELL COUNT(AUTO) 3.86 MIL/uL (4.00-5.50); RED CELL DISTRIBUTION WIDTH 13.1 % (11.0-15.5); WHITE BLOOD COUNT (AUTO) 6.0 K/uL (4.8-10.8)
[2025-05-27 05:13] LABS: CREATININE 0.8 mg/dL (0.5-1.0); GLOMERULAR FILTR. RATE CALC 80.0 mL/min (>90); GLUCOSE,RANDOM 206.0 mg/dL (70-105); SODIUM SERUM 139.0 mmol/L (136-145); UREA NITROGEN, BLOOD 16.0 mg/dL (7-18)
[2025-05-27] MEDS: SITAGLIPTIN PHOSPHATE 100 MG PO SCH (07:55)
[2025-05-27] MEDS: (Leflunomide 10 MG) PO SCH (07:55)
[2025-05-27] MEDS: SPIRONOLACTONE 25 MG TAB PO SCH (08:04)
[2025-05-27] MEDS: ASPIRIN 81 MG EC TAB PO SCH (08:04)
[2025-05-27] MEDS: sulfaSALAzine 500MG tab DR 500 MG/TAB TABLET.DR PO SCH (08:05)
--- NOTE | 2025-05-27 09:57 | CONS ---
Cardiology Consult Note Attending Medical Technologist Generalist: Dr. Yusuf Barksdale Primary Medical Technologist Generalist: Dr. Satnam Baxter Consulting Physician: Dr. 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 The symptoms began spontaneously and over the ensuing timeframe progressively worsened. Initially, the symptoms would develop with light physical activity (walking), and the pain was described as dull in quality, 8/10 in intensity, and would radiated to the neck, jaw, and left arm. The symptoms would last less than 1 minutes and would resolve with the use of SL nitroglycerin. Associated symptoms include headache. Pertinent negatives include dizziness, syncope, palpitations, shortness of breath, PND, orthopnea, abdominal pain, nausea, vomiting, weight gain, lower extremity swelling, diaphoresis, fever, or chills. The patient states that she redeveloped chest pain yesterday while at rest that did not respond to SL nitroglycerin, prompting her to seek a higher level of care. While on the inpatient service, laboratory data identified uptrending HS troponin I levels. Cardiology was consulted for treatment recommendations. PMH: Listed above PSH: Listed above FH: Significant for CAD, HTN, HLP, DMII. SH: Denies alcohol, tobacco, or illicit drug use. Allergies: Coded Allergies: lisinopril (Unverified Allergy, Intermediate, 11/02/23) morphine (Unverified Allergy, Intermediate, 11/02/23) Penicillins (Unverified Allergy, Unknown, 11/02/23) Jsjjmav-GRP-HmE Reductase Inhibitor (Unverified Allergy, Unknown, 11/02/23) amlodipine (Unverified Allergy, Unknown, 11/02/23) dapagliflozin (Unverified Allergy, Unknown, 11/02/23) diphenhydramine (Unverified Allergy, Unknown, 11/02/23) hydralazine (Unverified Allergy, Unknown, 11/18/24) DOES NOT RECALL BUT STATES HAS ALLERGY losartan (Unverified Allergy, Unknown, 11/02/23) pentazocine (Unverified Allergy, Unknown, 11/02/23) saxagliptin (Unverified Allergy, Unknown, 11/02/23) valsartan (Unverified Allergy, Unknown, 11/02/23) Review of systems: General: Denies fever or chills HEENT: Denies changes in vision, earache or sore throat Neck: Denies pain or stiffness Cardio: As per the HPI Pulm: Denies SOB, coughing or wheezing GI: Denies abdominal pain, nausea, vomiting, diarrhea, or constipation. MSK: Denies decreased ROM or joint pain. Heme: Denies anemia, easy bruising, or bleeding. Neuro: As per the HPI Psyche: Denies anxiety, depression, or suicidal ideation. Physical Exam: Vital Signs Date Time Temp Pulse Resp B/P (MAP) Pulse Ox O2 Delivery O2 Flow Rate FiO2 05/27/25 08:45 71 14 131/50 (77) 98 05/27/25 08:00 98.6 05/27/25 04:00 Nasal Cannula* 2 28 General: Alert and oriented x 3. NAD HEENT: NC/AT. Oral mucosa is moist. Neck: No masses, JVD, or carotid bruits Lungs: NRD. SCM. Bilateral air entry. CTA. No wheezing, rales or rhonchi. Cardio: Regular rate. Normal S1 and S2. +S4. PMI was not displaced. Abdomen: Soft. NT. ND. Normal active bowel sounds x 4 quadrants. Extremities: Diminished throughout Neuro: CN II-XII were grossly intact. No obvious focal deficits. Labs: Laboratory Tests Test 05/26/25 20:10 05/27/25 00:32 05/27/25 04:52 05/27/25 06:24 Range/Units White Blood Count 7.1 6.0 4.8-10.8 K/uL Red Blood Count 4.60 3.86 L 4.00-5.50 MIL/uL Hemoglobin 14.2 12.0 12.0-16.0 g/dL Hematocrit 43.2 36.5 36-48 % Mean Corpuscular Volume 93.9 94.6 79-99 fL Mean Corpuscular Hemoglobin 30.9 31.1 27.0-33.0 pg Mean Corpuscular Hemoglobin Concent 32.9 32.9 32.0-36.0 g/dL Red Cell Distribution Width 13.1 13.1 11.0-15.5 % Platelet Count 260 177 # 130-400 K/uL Mean Platelet Volume 10.2 10.3 7.5-10.5 fL Immature Granulocyte % (Auto) 0.3 0-1 % Neutrophils (%) (Auto) 67.1 40.0-77.0 % Lymphocytes (%) (Auto) 18.1 L 21.0-51.0 % Monocytes (%) (Auto) 8.3 3.0-13.0 % Eosinophils (%) (Auto) 5.2 0.0-8.0 % Basophils (%) (Auto) 1.0 0.0-5.0 % Neutrophils # (Auto) 4.7 1.8-7.7 K/uL Lymphocytes # (Auto) 1.3 1.0-4.8 K/uL Monocytes # (Auto) 0.6 0.1-1.0 K/uL Eosinophils # (Auto) 0.37 0.00-0.70 K/uL Basophils # (Auto) 0.07 0.00-0.20 K/uL Absolute Immature Granulocyte (auto 0.02 0-1 K/uL Nucleated Red Blood Cells 0.0 0.0 0.0-0.19 % Prothrombin Time 10.3 9.6-11.6 SEC Prothromb Time International Ratio 0.97 0.85-1.15 Activated Partial Thromboplast Time 27.1 122.1 #*H 26.3-35.5 SEC Sodium Level 137 139 136-145 mmol/L Potassium Level 3.7 3.8 3.5-5.1 mmol/L Chloride Level 99 L 104 101-111 mmol/L Carbon Dioxide Level 26 28 21-32 mmol/L Blood Urea Nitrogen 19 H 16 7-18 mg/dL Creatinine 1.0 0.8 0.5-1.0 mg/dL Glomerular Filtration Rate Calc 61 80 >90 mL/min Random Glucose 280 H 206 H 70-105 mg/dL Total Calcium 9.1 8.6 8.5-10.1 mg/dL Troponin I High Sensitivity 533 *H 5073 *H 4-50 ng/L Magnesium Level 2.00 1.80-2.40 mg/dL Whole Blood Glucose 142 H 70-110 MG/DL Test 05/27/25 06:40 Range/Units Activated Partial Thromboplast Time 88.3 #H 26.3-35.5 SEC Troponin I High Sensitivity 7172 *H 4-50 ng/L Assessment: -ACS-NSTEMI -CAD s/p 3V CABG (SERRANO-LAD, sequential SVG-D1-OM2) -ACS-NSTEMI s/p LHC/coronary angiogram done on 11/18/2024 which identified 3V CAD with 3/3 grafts patent, but 50% stenosis in the ostium of the SVG-D1-OM2, s/p PCI with PTCA and JANY placement (MOF 3.0x18 mm) in the proximal LCx -Unsuccessful PCI of the RCA 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 ACS-NSTEMI -Stable -Cardiac enzymes-HS troponin I: 533>5073>7172 -In order to optimize ACS treatment, we will transition the patient from clopidogrel to ticagrelor 180 mg x 1 dose, followed by 90 mg BID and she will continue on aspirin 81 mg daily, IV heparin infusion (ACS protocol), carvedilol 6.25 mg BID, and atorvastatin 20 mg QHS. In addition, she will continue on the IV nitroglycerin infusion, which should be titrated to achieve resolution of chest pain. -In order to further evaluate the patient's symptoms we will refer her for a C/coronary angiogram with possible intervention. The risks and benefits of the procedure have been explained to the patient and she wishes to proceed. -We will tentatively schedule the procedure for tomorrow afternoon, to be done by the patient's Primary Medical Technologist Generalist, Dr. Satnam Baxter, or another [facility] associate. -Please can have a CLD for breakfast, but should be kept the patient NPO after midnight. -The IV heparin infusion will be stopped by the [employer] Staff when they pick th e patient up for the procedure. -Lastly, we will obtain a 2D echocardiogram to assess the patient's systolic/diastolic function and for any wall motion abnormalities. Thank you for this interesting consult and allowing us to participate in the care of your patient. Further recommendations to follow. This case was discussed with my Supervising Physician, Dr. Yusuf Barksdale, and the above mentioned plan was formulated and agreed upon. -Consult Note written by Hugh Mendoza, MSN, DIRECTOR OF COUNTERINTELLIGENCE, [facility] May 27, 2025 09:57
--- NOTE | 2025-05-27 10:56 | NUR ---
DCP: HOME Pt lives in apt with her son Graham Milligan [phone]. Son is a dialysis pt. Pt gets $42 in food stamp assistance, has daily provider 12-3:30 Sunday thru Sat. Pt states she mostly can complete ADLS, provider helps if needed. Provider also cooks, cleans and does laundry. Pt uses a walker, w/c and shower chair at home. Family transports as needed. PCP is Tomer Reece and Satnam Baxter. Pt denies need for Snf and will dc home at fl
--- NOTE | 2025-05-27 15:00 | NUR ---
[facility] Consult: Patient assessed by wound healing team. See wound assessment. Assessment and recommendations provided to primary nurse. Education provided to patient r/t to wound, and pressure ulcer prevention/management.
--- NOTE | 2025-05-27 17:16 | CONS ---
CONSULTATION NOTE Date of Service: May 27, 2025 Reason for Consultation: [ wound to buttock ] Requesting Physician: [ ] HISTORY OF PRESENT ILLNESS: The patient is evaluated at bedside in room 209 for wound care evaluation. The patient report she developed ulcer to left buttock over 7 months ago that has not resolved. Patient report she has been applying ointments as prescribed by PCP. 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 The symptoms began spontaneously and over the ensuing timeframe progressively worsened. Initially, the symptoms would develop with light physical activity (walking), and the pain was described as dull in quality, 8/10 in intensity, and would radiated to the neck, jaw, and left arm. The symptoms would last less than 1 minutes and would resolve with the use of SL nitroglycerin. Associated symptoms include headache. Pertinent negatives include dizziness, syncope, palpitations, shortness of breath, PND, orthopnea, abdominal pain, nausea, vomiting, weight gain, lower extremity swelling, diaphoresis, fever, or chills. The patient states that she redeveloped chest pain yesterday while at rest that did not respond to SL nitroglycerin, prompting her to seek a higher level of care. While on the inpatient service, laboratory data identified uptrending HS troponin I levels. Patient admitted for further medical management. REVIEW OF SYSTEMS CONSTITUTIONAL: Denies fever, chills, or fatigue. HEAD/FACE: No signs of trauma. EENT: Denies eye pain, blurred vision, double vision, or light sensitivity. RESPIRATORY: Denies shortness of breath, cough, wheezing CARDIOVASCULAR: Positive for chest pain, palpitation, syncope GASTROINTESTINAL/ABDOMINAL: Denies abdominal pain, constipation, diarrhea, nausea or vomiting GENITOURINARY: Denies dysuria or hematuria. MUSCULOSKELETAL: Denies joint pain, tenderness, or trauma. INTEGUMENTARY: Denies rash or itchiness NEUROLOGICAL/PSYCH: Denies anxiety, depression, heat or cold intolerance. PMH: Listed above PSH: Listed above FH: Significant for CAD, HTN, HLP, DMII. SH: Denies alcohol, tobacco, or illicit drug use. Allergies: Coded Allergies: lisinopril (Unverified Allergy, Intermediate, 11/02/23) morphine (Unverified Allergy, Intermediate, 11/02/23) Penicillins (Unverified Allergy, Unknown, 11/02/23) Cyryadg-NBC-YaU Reductase Inhibitor (Unverified Allergy, Unknown, 11/02/23) amlodipine (Unverified Allergy, Unknown, 11/02/23) dapagliflozin (Unverified Allergy, Unknown, 11/02/23) diphenhydramine (Unverified Allergy, Unknown, 11/02/23) hydralazine (Unverified Allergy, Unknown, 11/18/24) DOES NOT RECALL BUT STATES HAS ALLERGY losartan (Unverified Allergy, Unknown, 11/02/23) pentazocine (Unverified Allergy, Unknown, 11/02/23) saxagliptin (Unverified Allergy, Unknown, 11/02/23) valsartan (Unverified Allergy, Unknown, 11/02/23) PHYSICAL EXAM EYES: Anicteric. Pupils equal and reactive. HENT: No oral thrush seen, moist Oral mucosa NECK: Supple, no JVD or thyromegaly. LUNGS: Good air entry. No rales, no rhonchi. CARDIOVASCULAR: S1, S2 regular. No murmur heard. ABDOMEN: Soft, non tender, bowel sounds present, no organomegaly CENTRAL NERVOUS SYSTEM: Awake, alert, oriented x 3. No focal deficits. SKIN: stage 2 pressure ulcer noted to left buttock with periwound erythema and excoriation LYMPHATICS: No peripheral lymphadenopathy MUSCULOSKELETAL: No joint swelling, erythema or tenderness. EXTREMITIES: No cyanosis or clubbing BACK: No deformity GENITOURINARY: No dysuria or hematuria Vital Sign (Last 24 Hours) 05/27/25 05/27/25 14:15 16:00 Temp 98.8 Pulse 75 Resp 19 B/P (MAP) 139/66 (90) Pulse Ox 96 O2 Delivery Room Air* O2 Flow Rate 0 FiO2 21 Intake & Output (last 24hrs) 05/26/25 05/26/25 05/27/25 15:00 23:00 07:00 Intake Total 12.8 ml Balance 12.8 ml LABS: Laboratory: Test 05/27/25 16:17 05/27/25 13:18 05/27/25 04:52 05/26/25 20:10 Range/Units Whole Blood Glucose 206 H 70-110 MG/DL Activated Partial Thromboplast Time 80.2 H 26.3-35.5 SEC Troponin I High Sensitivity 4317 *H 4-50 ng/L White Blood Count 6.0 4.8-10.8 K/uL Red Blood Count 3.86 L 4.00-5.50 MIL/uL Hemoglobin 12.0 12.0-16.0 g/dL Hematocrit 36.5 36-48 % Mean Corpuscular Volume 94.6 79-99 fL Mean Corpuscular Hemoglobin 31.1 27.0-33.0 pg Mean Corpuscular Hemoglobin Concent 32.9 32.0-36.0 g/dL Red Cell Distribution Width 13.1 11.0-15.5 % Platelet Count 177 # 130-400 K/uL Mean Platelet Volume 10.3 7.5-10.5 fL Nucleated Red Blood Cells 0.0 0.0-0.19 % Sodium Level 139 136-145 mmol/L Potassium Level 3.8 3.5-5.1 mmol/L Chloride Level 104 101-111 mmol/L Carbon Dioxide Level 28 21-32 mmol/L Blood Urea Nitrogen 16 7-18 mg/dL Creatinine 0.8 0.5-1.0 mg/dL Glomerular Filtration Rate Calc 80 >90 mL/min Random Glucose 206 H 70-105 mg/dL Total Calcium 8.6 8.5-10.1 mg/dL Magnesium Level 2.00 1.80-2.40 mg/dL B-Type Natriuretic Peptide 108 H 0-100 pg/mL Immature Granulocyte % (Auto) 0.3 0-1 % Neutrophils (%) (Auto) 67.1 40.0-77.0 % Lymphocytes (%) (Auto) 18.1 L 21.0-51.0 % Monocytes (%) (Auto) 8.3 3.0-13.0 % Eosinophils (%) (Auto) 5.2 0.0-8.0 % Basophils (%) (Auto) 1.0 0.0-5.0 % Neutrophils # (Auto) 4.7 1.8-7.7 K/uL Lymphocytes # (Auto) 1.3 1.0-4.8 K/uL Monocytes # (Auto) 0.6 0.1-1.0 K/uL Eosinophils # (Auto) 0.37 0.00-0.70 K/uL Basophils # (Auto) 0.07 0.00-0.20 K/uL Absolute Immature Granulocyte (auto 0.02 0-1 K/uL Prothrombin Time 10.3 9.6-11.6 SEC Prothromb Time International Ratio 0.97 0.85-1.15 DIAGNOSTICS / RADIOLOGY: [ ] PROBLEM LIST : Medical Problems: Pressure ulcer left buttock, stage 2 Tinea cruris Type 2 diabetes with other skin ulcer PLAN: Wound care to left buttock ulcer- Apply Venelex BID and PRN, Nystatin powder bid Waffle mattress Keep wounds clean and dry Offloading/reposition q 2 hours Comorbidities per primary care team Further Management per hospital course. Thank You for the consult and allowing us to participate in the care of this patient. ATTESTATION BY PHYSICIAN I have seen and examined the patient. I reviewed the documentation, medical decision making, and treatment plan as noted by the mid-level provider above. I agree with the findings and plan of care. LINETTE GOMEZ MD, MICHELLE A RETAIL SALES ASSOCIATE May 27, 2025 17:16 LINETTE GOMEZ MD Jun 05, 2025 13:16
[2025-05-27] MEDS: BALSAM PERU/CASTOR OIL 60 GM TUBE TP SCH (20:23)
--- NOTE | 2025-05-27 22:37 | PN ---
Subjective Review of Systems PROGRESS NOTE Date of Visit: May 27, 2025 Time of Visit: 22:36 Events since last encounter PATIENT RESTING IN BED Subjective NO RECURRENT CP General: No Fever, No Chills, No Night Sweats, No Fatigue, No Malaise, No Appetite, No Other HEENT: No Head Aches, No Visual Changes, No Eye Pain, No Ear Pain, No Dysphasia, No Sinus Congestion, No Post Nasal Drip, No Sore Throat, No Other Pulmonary: No Dyspnea, No Cough, No Pleuritic Chest Pain, No Other Cardiovascular: No: Chest Pain, Palpitations, Orthopnea, Paroxysmal Noc. Dyspnea, Edema, Lt Headedness, Other Gastrointestinal: No: Nausea, Vomiting, Abdominal Pain, Diarrhea, Constipation, Melena, Hematochezia, Other Genitourinary: No Dysuria, No Frequency, No Incontinence, No Hematuria, No Retention, No Other Musculoskeletal: No: other, neck pain, shoulder pain, arm pain, back pain, hand pain, leg pain, foot pain Skin: No Urticaria, No Rash, No Other Neurological: No: Weakness, Numbness, Incoordination, Change in speech, Confusion, Seizures, Other Objective Vitals and I/O Vital Sign (Last 24 Hours) 05/27/25 05/27/25 05/27/25 14:15 20:00 20:25 Pulse 75 Resp 19 B/P (MAP) 165/75 Pulse Ox 95 O2 Delivery Room Air* O2 Flow Rate 0 FiO2 21 Intake & Output (last 24hrs) 05/26/25 05/26/25 05/27/25 15:00 23:00 07:00 Intake Total 12.8 ml Balance 12.8 ml General: Alert, Oriented X3, Cooperative, No acute distress HEENT: Atraumatic, PERRLA, EOMI Neck: Supple, No JVD Lungs: Clear to auscultation, Normal air movement, NL respiratory effort Heart: Regular rate, Regular rhythm Abdomen: Normal bowel sounds, Soft, No tenderness, No masses Extremities: No clubbing, No cyanosis, No edema, Normal pulses Skin: No rashes, No breakdown Neuro: Normal speech, Normal tone Psych/Mental Status: Mental status NL, Mood NL Results RADIOLOGY: [] EKG: [] Laboratory Tests Test 05/27/25 00:32 05/27/25 04:52 05/27/25 06:24 05/27/25 06:40 Activated Partial Thromboplast Time 122.1 SEC (26.3-35.5) 88.3 SEC (26.3-35.5) #H Troponin I High Sensitivity 5073 ng/L (4-50) *H 7172 ng/L (4-50) *H White Blood Count 6.0 K/uL (4.8-10.8) Red Blood Count 3.86 MIL/uL (4.00-5.50) L Hemoglobin 12.0 g/dL (12.0-16.0) Hematocrit 36.5 % (36-48) Mean Corpuscular Volume 94.6 fL (79-99) Mean Corpuscular Hemoglobin 31.1 pg (27.0-33.0) Mean Corpuscular Hemoglobin Concent 32.9 g/dL (32.0-36.0) Red Cell Distribution Width 13.1 % (11.0-15.5) Platelet Count 177 K/uL (130-400) # Mean Platelet Volume 10.3 fL (7.5-10.5) Nucleated Red Blood Cells 0.0 % (0.0-0.19) Sodium Level 139 mmol/L (136-145) Potassium Level 3.8 mmol/L (3.5-5.1) Chloride Level 104 mmol/L (101-111) Carbon Dioxide Level 28 mmol/L (21-32) Blood Urea Nitrogen 16 mg/dL (7-18) Creatinine 0.8 mg/dL (0.5-1.0) Glomerular Filtration Rate Calc 80 mL/min (>90) Random Glucose 206 mg/dL (70-105) H Total Calcium 8.6 mg/dL (8.5-10.1) Magnesium Level 2.00 mg/dL (1.80-2.40) B-Type Natriuretic Peptide 108 pg/mL (0-100) H Whole Blood Glucose 142 MG/DL (70-110) H Test 05/27/25 10:03 05/27/25 10:44 05/27/25 13:18 05/27/25 16:17 Troponin I High Sensitivity 5685 ng/L (4-50) *H 4317 ng/L (4-50) *H Whole Blood Glucose 138 MG/DL (70-110) H 206 MG/DL (70-110) H Activated Partial Thromboplast Time 80.2 SEC (26.3-35.5) H Test 05/27/25 18:15 05/27/25 19:23 Activated Partial Thromboplast Time 63.0 SEC (26.3-35.5) H Whole Blood Glucose 256 MG/DL (70-110) H Medications Current Medications Nitroglycerin 0.4 mg Q5M PRN SL; Start 05/26/25 at 19:30 Aspirin 325 mg ONCE ONCE PO Last administered on 05/26/25at 19:29; Start 05/26/25 at 19:30; Stop 05/26/25 at 19:31; Status DC Heparin Sodium (Porcine) *calculation based on ACTUAL B... AD PRN IV Last administered on 05/26/25at 21:07; Start 05/26/25 at 22:00; Stop 06/25/25 at 21:59 Heparin Sodium/ Dextrose 250 ml @ 0 mls/hr Q6H IV Last administered on 05/26/25at 21:12; Start 05/26/25 at 22:00; Stop 06/25/25 at 21:59 Nitroglycerin/ Dextrose 0 ml @ 0 mls/hr AD PRN IV Last administered on 05/26/25at 21:37; Start 05/26/25 at 21:00; Stop 06/25/25 at 20:59 Insulin Human Regular INSULIN SLIDING SCAL... ACHS SQ; Start 05/27/25 at 07:30; Stop 05/27/25 at 00:55; Status DC Acetaminophen 650 mg Q6H PRN PO Last administered on 05/27/25at 18:14; Start 05/26/25 at 21:30; Stop 06/25/25 at 21:29 Ondansetron HCl 4 mg Q6H PRN IVP; Start 05/26/25 at 21:30; Stop 06/25/25 at 21:29 Aspirin 81 mg DAILY PO Last administered on 05/27/25at 08:04; Start 05/27/25 at 09:00; Stop 06/26/25 at 08:59 Atorvastatin Calcium 20 mg HS PO Last administered on 05/27/25at 20:26; Start 05/27/25 at 21:00; Stop 06/26/25 at 20:59 Carvedilol 6.25 mg BID PO Last administered on 05/27/25at 20:25; Start 05/27/25 at 09:00; Stop 06/26/25 at 08:59 Clopidogrel Bisulfate 75 mg DAILY PO Last administered on 05/27/25at 08:05; Start 05/27/25 at 09:00; Stop 05/27/25 at 10:00; Status DC Loratadine 10 mg DAILY PRN PO; Start 05/27/25 at 00:00; Stop 05/27/25 at 22:34; Status DC Nitroglycerin 0.4 mg AD SL; Start 05/27/25 at 00:00; Stop 05/27/25 at 00:08; Status DC Spironolactone 25 mg DAILY PO Last administered on 05/27/25at 08:04; Start 05/27/25 at 09:00; Stop 06/26/25 at 08:59 Sulfasalazine 500 mg BID PO Last administered on 05/27/25at 20:25; Start 05/27/25 at 09:00; Stop 06/06/25 at 08:59 Home Med BID PO; Start 05/27/25 at 09:00; Stop 06/26/25 at 08:59 Hydralazine HCl 50 mg BID PO; Start 05/27/25 at 09:00; Stop 05/27/25 at 10:05; Status DC Insulin Glargine 30 units HS SQ Last administered on 05/27/25at 20:21; Start 05/27/25 at 21:00; Stop 06/26/25 at 20:59 Home Med DAILY PO; Start 05/27/25 at 09:00; Stop 06/26/25 at 08:59 Home Med DAILY PO; Start 05/27/25 at 09:00; Stop 06/26/25 at 08:59 Nifedipine 60 mg DAILY PO Last administered on 05/27/25at 08:04; Start 05/27/25 at 09:00; Stop 06/26/25 at 08:59 Pyridoxine HCl 100 mg DAILY PO Last administered on 05/27/25at 08:04; Start 05/27/25 at 09:00; Stop 06/26/25 at 08:59 Home Med DAILY PO; Start 05/27/25 at 09:00; Stop 06/26/25 at 08:59 Insulin Human Regular INSULIN SLIDING SCAL... ACHS SQ Last administered on 05/27/25at 20:20; Start 05/27/25 at 07:30; Stop 06/26/25 at 07:29 Dextrose 50 ml AD PRN IV; Start 05/27/25 at 00:30; Stop 06/26/25 at 00:29 Glucagon 1 mg AD PRN IM; Start 05/27/25 at 00:30; Stop 06/26/25 at 00:29 Potassium Chloride 100 ml @ 100 mls/hr AD PRN IV; Start 05/27/25 at 00:30; Stop 06/26/25 at 00:29 Potassium Chloride 20 meq AD PRN PO; Start 05/27/25 at 00:30; Stop 06/26/25 at 00:29 Potassium Chloride 20 meq AD PRN PO; Start 05/27/25 at 00:30; Stop 06/26/25 at 00:29 Potassium Chloride 100 ml @ 50 mls/hr AD PRN IV; Start 05/27/25 at 00:30; Stop 05/27/25 at 06:59; Status DC Magnesium Sulfate 50 ml @ 0 mls/hr PROTOCOL PRN IV; Start 05/27/25 at 00:30; S top 06/26/25 at 00:29 Pantoprazole Sodium 40 mg DAILY PO Last administered on 05/27/25at 08:04; Start 05/27/25 at 09:00; Stop 06/26/25 at 08:59 Ticagrelor 180 mg ONCE ONCE PO Last administered on 05/27/25at 11:12; Start 05/27/25 at 10:00; Stop 05/27/25 at 10:06; Status DC Ticagrelor 90 mg BID PO Last administered on 05/27/25at 20:23; Start 05/27/25 at 21:00; Stop 06/26/25 at 20:59 Wound Care/ Dressing Products Left buttock ulcer... BID TP Last administered on 05/27/25at 20:23; Start 05/27/25 at 21:00; Stop 06/26/25 at 20:59 Nystatin 1 APPLICATION BID TP Last administered on 05/27/25at 20:23; Start 05/27/25 at 21:00; Stop 06/26/25 at 20:59 Loratadine 10 mg DAILY PRN PO; Start 05/27/25 at 22:30; Stop 06/26/25 at 22:29 Loratadine 10 mg ONCE ONCE PO; Start 05/27/25 at 23:00; Stop 05/27/25 at 23:01; Status UNV Assessment/Plan ASSESSMENT: CAD WIHT HX NON STEMI W PEAK TROPONIN 12K - 10/2024 S/P LHC WITH SUCCESSFUL PTCA/STENT LCX FAILED RCA REVASCULARIZATION WITH DISTAL/PROX RCA PERFORATION, V-FIB ARREST S/P DEFIB X 3 ECHO WITH TRIVIAL PERICARDIAL EFFUSION W/O TAMPONADE RESOLUTION OF PERICARDIAL EFFUSION EF > 55% DM II ON SPACE AND MISSILE OPERATIONS INSULIN CAD WITH HISTORY OF CORONARY STENTS NON STEMI ON 10/29/2023 [place] [facility] [place]NSUCCESSFUL PTCA HYPERTENSIVE HEART AND RENAL DISEASE WITH CKD 2 GERD LUMBAR STENOSIS WITH NEUROGENIC CLAUDICATION OTHER SPECIFIED SPONDYLOPATHY, LUMBAR REGION ATHEROSCLEROSIS OF LEGS BILATERAL RHEUMATOID ARTHRITIS HYPERLIPIDEMIA MIXED OSTEOPOROSIS STATIN MYOPATHY SHE PRESENTED WITH A NONSTEMI PLAN: CONTINUE SERIAL CARDIAC ENZYMES STABILIZED ON NTG DRIP TO KEEP CP FREE CONTINUES ON IV HEPARIN PROTOCOL CONT ASA PLAVIX STATIN THERAPY CONT COREG AND NIFEDIPINE AND HYDRALAZINE FOR HTN CONTROL WITH ADJUSTMENTS NEEDED APPRECIATE CARDIOLOGY EVALUATION ECHO PENDING MONITOR GLUCOSE AND ADJUST INSULIN NEEDED SUPPLEMENT ELECTROLYTES BARBARA LARA MD May 27, 2025 22:37
[2025-05-27] MEDS: LORATAdine 10 mg 10 MG TABLET PO PRN (22:48)
[2025-05-27] MEDS: LORATAdine 10 mg 10 MG TABLET PO ONE (23:00)
--- NOTE | 2025-05-27 23:51 | HMCSR ---
APPROVED REPORT EXAM: Two-dimensional and M-mode echocardiogram with Doppler and color Doppler. 2D Dimensions RVDd 3.4 cm LVEF(%) 57.6 (>50%) LVED Vol(simp.) 92.7 mL IVSd 0.6 (0.7-1.1cm) FS(%) 30 % LVES Vol(simp.) 35.2 mL LVDd 3.9 (3.8-5.6cm) LA (2D) 2.7 (1.6-4.0cm) LVEF(%, simp.) 62 % PWd 1.1 (0.7-1.1cm) Ao Root(2D) 2.4 (2.0-3.7cm) LA ESV INDEX (BP) 24.25 mL/m2 LVDs 2.7 (2.5-4.0cm) LVOT diam 1.7 (1.8-2.4cm) IVC diam 1.5 cm Deformation Strain Apical 4 -16.7 % Apical 2 -13.9 % Apical 3 -17.7 % Global Strain -16.1 % M-Mode Dimensions EPSS 0.8 cm LA (MM) 2.7 (1.6-4.0cm) Ao Root(MM) 2.4 (2.0-3.7cm) Aortic Valve AoV Vmax 1.5 m/s Ao Peak GR 9.4 mmHg LVOT Vmax 1.0 m/s AoV VTI 0.3 m Ao Mean GR 4.7 mmHg LVOT VTI 0.21 m NELLA (VMAX) 1.57 cm2 Al P1/2T 262 ms NELLA (VTI) 1.7 cm2 Mitral Valve MV E Vmax 69.0 cm/s DECEL Time 223 ms MV A Vmax 93.3 cm/s P 1/2 T 49 ms E/A ratio 0.7 MVA (PHT) 4.5 cm2 TDI E/E' Medial 17.3 E/E' Lateral 8.0 Medial E' Peak V 3.99 cm/s Lateral E' Peak V 8.66 cm/s Pulmonary Valve PV Vmax 1.0 m/s PV VTI 0.18 m PV Mean GR 2.2 mmHg PV Peak GR 3.8 mmHg Tricuspid Valve TR Vmax 1.9 m/s RVSP 13.0 mmHg TR Peak GR 15.6 mmHg Left Ventricle The left ventricle is normal size. No regional wall motion abnormalities noted. Mild concentric left ventricular hypertrophy. Left ventricular systolic function is normal, estimated LVEF is 55 to 60%. Stage I diastolic dysfunction. Right Ventricle The right ventricle is normal size. The right ventricular systolic function is normal. Atria The left atrium size is normal. The right atrium size is normal. Aortic Valve The aortic valve is normal in structure. No aortic regurgitation is present. There is no aortic valvular stenosis. Mitral Valve The mitral valve is normal in structure. Trace mitral regurgitation. There is no mitral valve stenosis. Tricuspid Valve The tricuspid valve is normal in structure. Trace tricuspid regurgitation. RVSP is normal. Pulmonic Valve Pulmonic valve is not well visualized. Great Vessels The aortic root is normal in size. IVC is not well visualized. Pericardium There is no pericardial effusion. Other Information Quality : Technically difficult study due to body habitus Conclusion Mild concentric left ventricular hypertrophy. No regional wall motion abnormalities noted. Left ventricular systolic function is normal, estimated LVEF is 55 to 60%. Stage I diastolic dysfunction. Trace mitral regurgitation. Trace tricuspid regurgitation. RVSP is normal. There is no pericardial effusion.
[2025-05-28] VITALS (27 sets, daily range): BP systolic 91–171; BP diastolic 43–82; PULSE 67–87; RESP 7–24; TEMP 98.2–98.8; O2SAT 93–98
[2025-05-28 06:45] LABS: IMMATURE GRANULOCYTE ABSOLUTE 0.01 K/uL (0-1); NUCLEATED RED BLOOD CELLS 0.0 % (0.0-0.19); PLATELET COUNT (AUTO) 196 K/uL (130-400); RED BLOOD CELL COUNT(AUTO) 4.32 MIL/uL (4.00-5.50); RED CELL DISTRIBUTION WIDTH 13.2 % (11.0-15.5); WHITE BLOOD COUNT (AUTO) 5.8 K/uL (4.8-10.8)
[2025-05-28 06:55] LABS: INR 1.05 (0.85-1.15)
[2025-05-28 07:02] LABS: ASPARTATE AMINOTRANSFERASE 58.0 U/L (10-37); CREATININE 0.9 mg/dL (0.5-1.0); GLOMERULAR FILTR. RATE CALC 70.0 mL/min (>90); GLUCOSE,RANDOM 85.0 mg/dL (70-105); PHOSPHORUS 3.2 mg/dL (2.5-4.9); SODIUM SERUM 139.0 mmol/L (136-145); TOTAL PROTEIN, SERUM 7.2 g/dL (6.0-8.3); UREA NITROGEN, BLOOD 16.0 mg/dL (7-18)
[2025-05-28] MEDS: PoTASSium chloRIDE 20MEQ ER 20 MEQ ERTAB PO PRN (07:51)
[2025-05-28] MEDS: MAGNESIUM 2GM PREMIX 50ML 50 ML IV PRN (07:51)
--- NOTE | 2025-05-28 08:56 | PN ---
[facility] CARDIOLOGY PROGRESS NOTE Date Patient Seen: May 28, 2025 Time of Visit: 08:50 Interval History: [ No acute events overnight. The troponin has downtrended to 4317, this patient's case will to undergo coronary angiogram today, 2D echocardiogram showed LVEF 55-60%, stage I diastolic dysfunction no wall motion abnormalities. ] Physical Examination: General: Alert and oriented x 3. NAD HEENT: NC/AT. Oral mucosa is moist. Neck: No masses, JVD, or carotid bruits Lungs: NRD. SCM. Bilateral air entry. CTA. No wheezing, rales or rhonchi. Cardio: Regular rate. Normal S1 and S2. +S4. PMI was not displaced. Abdomen: Soft. NT. ND. Normal active bowel sounds x 4 quadrants. Extremities: Diminished throughout Neuro: CN II-XII were grossly intact. No obvious focal deficits. Laboratory: [ ] Hematology Labs: Test 05/28/25 06:34 Range/Units White Blood Count 5.8 4.8-10.8 K/uL Red Blood Count 4.32 4.00-5.50 MIL/uL Hemoglobin 13.4 12.0-16.0 g/dL Hematocrit 40.7 36-48 % Mean Corpuscular Volume 94.2 79-99 fL Mean Corpuscular Hemoglobin 31.0 27.0-33.0 pg Mean Corpuscular Hemoglobin Concent 32.9 32.0-36.0 g/dL Red Cell Distribution Width 13.2 11.0-15.5 % Platelet Count 196 130-400 K/uL Mean Platelet Volume 10.1 7.5-10.5 fL Immature Granulocyte % (Auto) 0.2 0-1 % Neutrophils (%) (Auto) 58.6 40.0-77.0 % Lymphocytes (%) (Auto) 21.7 21.0-51.0 % Monocytes (%) (Auto) 10.2 3.0-13.0 % Eosinophils (%) (Auto) 8.3 H 0.0-8.0 % Basophils (%) (Auto) 1.0 0.0-5.0 % Neutrophils # (Auto) 3.4 1.8-7.7 K/uL Lymphocytes # (Auto) 1.3 1.0-4.8 K/uL Monocytes # (Auto) 0.6 0.1-1.0 K/uL Eosinophils # (Auto) 0.48 0.00-0.70 K/uL Basophils # (Auto) 0.06 0.00-0.20 K/uL Absolute Immature Granulocyte (auto 0.01 0-1 K/uL Nucleated Red Blood Cells 0.0 0.0-0.19 % Chemistry Labs: Test 05/28/25 06:34 05/28/25 04:43 05/27/25 13:18 05/27/25 04:52 Range/Units Sodium Level 139 136-145 mmol/L Potassium Level 3.6 3.5-5.1 mmol/L Chloride Level 102 101-111 mmol/L Carbon Dioxide Level 30 21-32 mmol/L Blood Urea Nitrogen 16 7-18 mg/dL Creatinine 0.9 0.5-1.0 mg/dL Glomerular Filtration Rate Calc 70 >90 mL/min Random Glucose 85 70-105 mg/dL Total Calcium 9.3 8.5-10.1 mg/dL Phosphorus Level 3.2 2.5-4.9 mg/dL Magnesium Level 1.70 L 1.80-2.40 mg/dL Total Bilirubin 0.5 0.2-1.0 mg/dL Aspartate Amino Transf (AST/SGOT) 58 H 10-37 U/L Alanine Aminotransferase (ALT/SGPT) 61 12-78 U/L Alkaline Phosphatase 274 H 50-136 U/L Total Protein 7.2 6.0-8.3 g/dL Albumin 2.9 L 3.5-5.0 g/dL Whole Blood Glucose 76 70-110 MG/DL Troponin I High Sensitivity 4317 *H 4-50 ng/L B-Type Natriuretic Peptide 108 H 0-100 pg/mL Coagulation Labs: Test 05/28/25 06:34 Range/Units Prothrombin Time 11.1 9.6-11.6 SEC Prothromb Time International Ratio 1.05 0.85-1.15 Activated Partial Thromboplast Time 96.8 *H 26.3-35.5 SEC Diagnostics / Radiology: [Copy/Paste Echos/Imaging Report here] Impression and Plan: [-ACS-NSTEMI -CAD s/p 3V CABG (SERRANO-LAD, sequential SVG-D1-OM2) -ACS-NSTEMI s/p LHC/coronary angiogram done on 11/18/2024 which identified 3V CAD with 3/3 grafts patent, but 50% stenosis in the ostium of the SVG-D1-OM2, s/p PCI with PTCA and JANY placement (MOF 3.0x18 mm) in the proximal LCx -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 ACS-NSTEMI -Cardiac enzymes-HS troponin I: 533>5073> peaked 7172 and have downtrended to 4317 -Continue ticagrelor 90 mg BID , aspirin 81 mg daily, IV heparin infusion (ACS protocol), carvedilol 6.25 mg BID, and atorvastatin 20 mg QHS. -Continue on the IV nitroglycerin infusion -In order to further evaluate the patient's symptoms we will refer her for a [facility]/coronary angiogram with possible intervention later today. The risks and benefits of the procedure have been explained to the patient and she wishes to proceed. -patient currently denies any cardiac symptoms or anginal equivalents -2D echocardiogram showed LVEF 55-60%, stage I diastolic dysfunction no wall motion abnormalities. Thank you for this consult cardiology will continue to follow along Danna multani MD ATTESTATION BY PHYSICIAN I have seen and examined the patient, reviewed the above documentation, participated in medical decision making, made necessary modifications, and agree with the treatment plan as documented by my mid-level provider above. MD PANDA Vuong DANIELLE M MD May 28, 2025 08:56
[2025-05-28] MEDS ORDERED: HEParin-NS 1,000 UNIT/500 ML 1,000 ML IV ONE (15:10)
[2025-05-28] MEDS ORDERED: LIDOCAINE HCL 400MG/20ML VIAL ONE (15:10)
[2025-05-28] MEDS ORDERED: IOHEXOL 350 MG/ML 100ML INFUS..BTL IV ONE ×2 (15:10→17:54)
[2025-05-28] MEDS ORDERED: VERAPAMIL HCL 2.5 MG/ML VIAL ONE (15:10)
[2025-05-28] MEDS ORDERED: NITROGLYCERIN 50MG VIAL ONE (15:11)
[2025-05-28] MEDS ORDERED: MIDAZOLAM HCL 1 MG/ML 2ML VIAL ONE ×3 (16:40→18:38)
[2025-05-28] MEDS ORDERED: HEParin-NS 1,000 UNIT/500 ML 500 ML IV ONE (17:40)
[2025-05-28] MEDS ORDERED: EPTIFIBATIDE 2 MG/ML 10 ML VIAL IVP ONE ×2 (17:47→17:58)
[2025-05-28] MEDS ORDERED: EPTIFIBATIDE 75MG/100ML BOTTLE 100 ML IV ONE (17:58)
[2025-05-28] MEDS ORDERED: IOHEXOL-350 75 ML VIAL IV ONE (18:26)
[2025-05-28] MEDS ORDERED: IOHEXOL-350 50ML VIAL IV ONE (19:10)
--- NOTE | 2025-05-28 19:52 | PRN ---
PROCEDURE REPORT DATE OF PROCEDURE: May 28, 2025 LEATHER [employer] ARTISAN: [ Satnam multani MD] PROCEDURE PERFORMED: Conscious sedation Ultrasound guided left radial artery access Selective left coronary artery angiogram Selective right coronary artery angiogram Left heart catheterization Left subclavian angiogram Selective SERRANO to LAD angiogram Selective SVG to D1/om jump graft IVUS of the SVG to D1/om jump graft Status post IVUS guided PTCA/PCI of the proximal (4.5 x 23 mm JANY) and mid (4 x 33 mm JANY) of the SVG to D1/OM jump graft Complicated by in stent thrombosis and is now Status post aspiration thrombectomy of the SVG to D1/om jump graft TR band 13 dorinda over right radial artery INDICATION: NSTEMI DESCRIPTION OF PROCEDURE: After informed consent was obtained, the patient was prepped and draped in the usual sterile fashion. A 6 Fijian arterial sheath was inserted in the left radial artery using ultrasound guidance with first pass wall puncture. The arterial sheath was aspirated and flushed. A 5F BArtoreli cath was advanced over the wire and used to perform a left subclavian angiogram and also to engage the SERRANO to LAD graft followed by multiple angiographic images. We exchanged this catheter for a A 6 Fijian JL 3.5 was then advanced to the ascending aorta over an exchange length J-tip guidewire, was aspirated and flushed, and was used for selective coronary angiograms in multiple obliquities. A JR-4 was advanced in a similar fashion to the ascending aorta over the J-tipped guidewire and was used for selective right coronary angiograms in multiple oblique views with findings as outlined below. The JR-4 catheter advanced into the LV and pressures were obtained with a pull-back across the aortic valve. We then exchanged the JR4 catheter for a six Fijian LCB diagnostic catheter which was used to select engage the SVG to D1/om jump graft. Following review of all the angiographic images decision was made to intervene on patient's critical SVG to D1/om jump graft which was found to have thrombus in the mid stent segment. Due to poor guide catheter support and lack of distal landing zone we are unable to deploy a distal embolic protection device so we advanced a Prowater into the distal SVG graft under fluoroscopic guidance. Given her lack of guide catheter support we advanced a FineCross microcatheter over the wire and uses to exchange for a more supportive wiggle wire. We then advanced a six Fijian GuideLiner over the wire to provide additional support and then we then proceeded with IVUS imaging of the SVG graft to delineate lesion morphology and characteristics noting a significant thrombus burden within the mid segment and 80 85% stenosis with the proximal segment. Given the thrombus burden decision was made to direct stent to avoid distal embolization. So we deployed a 4 x 33 mm drug-eluting stent within the mid graft to nominal pressures. We then also proceeded with direct stenting of the ostial to prox SVG graft using a 4.5 x 23 mm drug-eluting stent to nominal pressures. Following stent deployment we noted sluggish JAMIE one flow concerning for stent thrombosis within the mid segment. We provided intra coronary nicardipine and nitroglycerin with no significant improvement. We then initiated IV Integrilin infusion and provided double bolus intra coronary. Despite this we had ongoing JAMIE one sluggish flow with subtle ST elevations. Patient denied any symptoms of right hand hemodynamically stable. We attempted to advance a penumbra aspiration catheter but due to significant lack of guide catheter support we are unable to advance any further equipment within the six Fijian system. At this time we exchanged all catheters and upsized the six Fijian arterial sheath to a seven Fijian arterial sheath was exchanged over the wire and placed in the left radial artery. We then advanced a seven Fijian LCB guide catheter over the wire which was used to engage the SVG graft. We rewired this using the Prowater and again exchanged this for a supportive wire using the microcatheter. We then proceeded to PTCA using a 4 x 15 mm over the wire balloon serially within the mid stent segment. We provided additional intraco ronary nicardipine and nitroglycerin with no significant improvement. We then advanced a six Fijian penumbra system over the wire and began aspiration thrombectomy within the mid stent segment in several antegrade and retrograde passes. We noted mild improvement of her ST elevations which she had ongoing JAMIE one sluggish flow. Given her lack of symptoms improvement of ST elevations and hemodynamic stability in the setting of excess contrast and radiation used the decision was made to terminate the procedure and continue with IV Integrilin infusion over the course of 16 hours postprocedure. At this time all wires and catheters removed from the body and a A TR band was placed over left radial artery. Patient tolerated procedure well with no postprocedure complication was transferred to labor arbitrator holding in stable condition FLUOROSCOPY TIME: 43.4 min LEFT HEART HEMODYNAMICS: LVEDP 7 mm Hg and no gradient Ao CORONARY ANGIOGRAM: LEFT MAIN: Patent and 20-30% distal stenosis. Gives rise to LCx and LAD. LEFT ANTERIOR DESCENDING: Large vessel giving rise to two Diagonal branches. There is 100% mid LAD stenosis just after the first septal artery with JAMIE 0 flow. Fiills distally via patent SERRANO-LAD LEFT CIRCUMFLEX: Large and gives rise to two OM branches. Patent proximal stent with JAMIE III flow RIGHT CORONARY ARTERY: Large, dominant vessel giving rise to PDA and PL branches. 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 GRAFT ANATOMY: SERRANO-LAD widely patent SVG-D1/OM jump graft with 80-85% proximal and mid stenosis with significant mid segment thrombus burden HEMOSTASIS: TR band 12 dorinda over left radial artery INTERVENTIONS: Status post IVUS guided PTCA/PCI of the proximal (4.5 x 23 mm JANY) and mid (4 x 33 mm JANY) of the SVG to D1/OM jump graft COMPLICATIONS: Complicated by in stent thrombosis and is now Status post aspiration thrombectomy of the SVG to D1/om jump graft FINDINGS: Normal coronary anatomy and severe multivessel CAD ESTIMATED BLOOD LOSS: 5 cc RECOMMENDATIONS/INSTRUCTIONS: Aggressive risk factor modification. Patient require 12 months of dual antiplatelet therapy in addition to high-in tensity statin therapy and beta-sergio We will continue IV Integrilin infusion for a total of 16 hours postprocedure and monitor with repeat ECG in the morning We will consider medical management given her advanced coronary artery disease with a widely patent left circ stent CONTRAST DELIVERED TO PATIENT (mL): 320cc MD PANDA Vásquez JAMES R MD May 28, 2025 19:52
[2025-05-28] MEDS ORDERED: DEXTROSE 50%-WATER 50 ML DISP.SYRIN IV PRN (20:00)
[2025-05-28] MEDS ORDERED: GLUCAGON 1MG KIT 1 MG ML IM PRN (20:00)
[2025-05-28] MEDS: 0.9%NACL 1000ML 1,000 ML IV SCH (21:11)
--- NOTE | 2025-05-28 22:45 | PN ---
Subjective Review of Systems PROGRESS NOTE Date of Visit: May 28, 2025 Time of Visit: 22:45 Events since last encounter RESTING COMFORTABLY Subjective NO RECURRENT CP General: No Fever, No Chills, No Night Sweats, No Fatigue, No Malaise, No Appetite, No Other HEENT: No Head Aches, No Visual Changes, No Eye Pain, No Ear Pain, No Dysphasia, No Sinus Congestion, No Post Nasal Drip, No Sore Throat, No Other Pulmonary: No Dyspnea, No Cough, No Pleuritic Chest Pain, No Other Cardiovascular: No: Chest Pain, Palpitations, Orthopnea, Paroxysmal Noc. Dyspnea, Edema, Lt Headedness, Other Gastrointestinal: No: Nausea, Vomiting, Abdominal Pain, Diarrhea, Constipation, Melena, Hematochezia, Other Genitourinary: No Dysuria, No Frequency, No Incontinence, No Hematuria, No Ret ention, No Other Musculoskeletal: No: other, neck pain, shoulder pain, arm pain, back pain, hand pain, leg pain, foot pain Skin: No Urticaria, No Rash, No Other Neurological: No: Weakness, Numbness, Incoordination, Change in speech, Confusion, Seizures, Other Objective Vitals and I/O Vital Sign (Last 24 Hours) 05/28/25 05/28/25 05/28/25 05/28/25 08:00 12:00 16:00 21:26 Temp 98.2 Pulse 76 Resp 22 B/P (MAP) 141/73 Pulse Ox 95 O2 Delivery Room Air O2 Flow Rate 0 FiO2 21 l Intake & Output (last 24hrs) 05/27/25 05/27/25 05/28/25 15:00 23:00 07:00 Intake Total 688.1 ml 306.6 ml 36.7 ml Balance 688.1 ml 306.6 ml 36.7 ml General: Alert, Oriented X3, Cooperative, No acute distress HEENT: Atraumatic, PERRLA, EOMI Neck: Supple, No JVD Lungs: Clear to auscultation, Normal air movement, NL respiratory effort Heart: Regular rate, Regular rhythm Abdomen: Normal bowel sounds, Soft, No tenderness, No masses Extremities: No clubbing, No cyanosis, No edema, Normal pulses Skin: No rashes, No breakdown Neuro: Normal speech, Normal tone Psych/Mental Status: Mental status NL, Mood NL Results RADIOLOGY: [] EKG: [] Laboratory Tests Test 05/28/25 00:23 05/28/25 02:27 05/28/25 04:43 05/28/25 06:34 Activated Partial Thromboplast Time 98.7 SEC (26.3-35.5) 96.8 SEC (26.3-35.5) *H Whole Blood Glucose 85 MG/DL (70-110) 76 MG/DL (70-110) White Blood Count 5.8 K/uL (4.8-10.8) Red Blood Count 4.32 MIL/uL (4.00-5.50) Hemoglobin 13.4 g/dL (12.0-16.0) Hematocrit 40.7 % (36-48) Mean Corpuscular Volume 94.2 fL (79-99) Mean Corpuscular Hemoglobin 31.0 pg (27.0-33.0) Mean Corpuscular Hemoglobin Concent 32.9 g/dL (32.0-36.0) Red Cell Distribution Width 13.2 % (11.0-15.5) Platelet Count 196 K/uL (130-400) Mean Platelet Volume 10.1 fL (7.5-10.5) Immature Granulocyte % (Auto) 0.2 % (0-1) Neutrophils (%) (Auto) 58.6 % (40.0-77.0) Lymphocytes (%) (Auto) 21.7 % (21.0-51.0) Monocytes (%) (Auto) 10.2 % (3.0-13.0) Eosinophils (%) (Auto) 8.3 % (0.0-8.0) H Basophils (%) (Auto) 1.0 % (0.0-5.0) Neutrophils # (Auto) 3.4 K/uL (1.8-7.7) Lymphocytes # (Auto) 1.3 K/uL (1.0-4.8) Monocytes # (Auto) 0.6 K/uL (0.1-1.0) Eosinophils # (Auto) 0.48 K/uL (0.00-0.70) Basophils # (Auto) 0.06 K/uL (0.00-0.20) Absolute Immature Granulocyte (auto 0.01 K/uL (0-1) Nucleated Red Blood Cells 0.0 % (0.0-0.19) Prothrombin Time 11.1 SEC (9.6-11.6) Prothromb Time International Ratio 1.05 (0.85-1.15) Sodium Level 139 mmol/L (136-145) Potassium Level 3.6 mmol/L (3.5-5.1) Chloride Level 102 mmol/L (101-111) Carbon Dioxide Level 30 mmol/L (21-32) Blood Urea Nitrogen 16 mg/dL (7-18) Creatinine 0.9 mg/dL (0.5-1.0) Glomerular Filtration Rate Calc 70 mL/min (>90) Random Glucose 85 mg/dL (70-105) Total Calcium 9.3 mg/dL (8.5-10.1) Phosphorus Level 3.2 mg/dL (2.5-4.9) Magnesium Level 1.70 mg/dL (1.80-2.40) L Total Bilirubin 0.5 mg/dL (0.2-1.0) Aspartate Amino Transf (AST/SGOT) 58 U/L (10-37) H Alanine Aminotransferase (ALT/SGPT) 61 U/L (12-78) Alkaline Phosphatase 274 U/L (50-136) H Total Protein 7.2 g/dL (6.0-8.3) Albumin 2.9 g/dL (3.5-5.0) L Test 05/28/25 21:09 Whole Blood Glucose 213 MG/DL (70-110) #H Medications Current Medications Nitroglycerin 0.4 mg Q5M PRN SL; Start 05/26/25 at 19:30 Aspirin 325 mg ONCE ONCE PO Last administered on 05/26/25at 19:29; Start 05/26/25 at 19:30; Stop 05/26/25 at 19:31; Status DC Heparin Sodium (Porcine) *calculation based on ACTUAL B... AD PRN IV Last administered on 05/26/25at 21:07; Start 05/26/25 at 22:00; Stop 06/25/25 at 21:59 Heparin Sodium/ Dextrose 250 ml @ 0 mls/hr Q6H IV Last administered on 05/28/25at 06:31; Start 05/26/25 at 22:00; Stop 06/25/25 at 21:59 Nitroglycerin/ Dextrose 0 ml @ 0 mls/hr AD PRN IV Last administered on 05/26/25at 21:37; Start 05/26/25 at 21:00; Stop 06/25/25 at 20:59 Insulin Human Regular INSULIN SLIDING SCAL... ACHS SQ; Start 05/27/25 at 07:30; Stop 05/27/25 at 00:55; Status DC Acetaminophen 650 mg Q6H PRN PO Last administered on 05/27/25at 18:14; Start 05/26/25 at 21:30; Stop 06/25/25 at 21:29 Ondansetron HCl 4 mg Q6H PRN IVP; Start 05/26/25 at 21:30; Stop 06/25/25 at 21:29 Aspirin 81 mg DAILY PO Last administered on 05/28/25at 07:51; Start 05/27/25 at 09:00; Stop 06/26/25 at 08:59 Atorvastatin Calcium 20 mg HS PO Last administered on 05/28/25at 21:24; Start 05/27/25 at 21:00; Stop 06/26/25 at 20:59 Carvedilol 6.25 mg BID PO Last administered on 05/28/25at 21:26; Start 05/27/25 at 09:00; Stop 06/26/25 at 08:59 Clopidogrel Bisulfate 75 mg DAILY PO Last administered on 05/27/25at 08:05; Start 05/27/25 at 09:00; Stop 05/27/25 at 10:00; Status DC Loratadine 10 mg DAILY PRN PO; Start 05/27/25 at 00:00; Stop 05/27/25 at 22:34; Status DC Nitroglycerin 0.4 mg AD SL; Start 05/27/25 at 00:00; Stop 05/27/25 at 00:08; Status DC Spironolactone 25 mg DAILY PO Last administered on 05/28/25at 07:52; Start 05/27/25 at 09:00; Stop 06/26/25 at 08:59 Sulfasalazine 500 mg BID PO Last administered on 05/28/25at 21:24; Start 05/27/25 at 09:00; Stop 06/06/25 at 08:59 Home Med BID PO; Start 05/27/25 at 09:00; Stop 06/26/25 at 08:59 Hydralazine HCl 50 mg BID PO; Start 05/27/25 at 09:00; Stop 05/27/25 at 10:05; Status DC Insulin Glargine 30 units HS SQ Last administered on 05/28/25at 21:34; Start 05/27/25 at 21:00; Stop 06/26/25 at 20:59 Home Med DAILY PO; Start 05/27/25 at 09:00; Stop 06/26/25 at 08:59 Home Med DAILY PO; Start 05/27/25 at 09:00; Stop 06/26/25 at 08:59 Nifedipine 60 mg DAILY PO Last administered on 05/28/25at 07:51; Start 05/27/25 at 09:00; Stop 06/26/25 at 08:59 Pyridoxine HCl 100 mg DAILY PO Last administered on 05/28/25at 07:52; Start 05/27/25 at 09:00; Stop 06/26/25 at 08:59 Home Med DAILY PO; Start 05/27/25 at 09:00; Stop 06/26/25 at 08:59 Insulin Human Regular INSULIN SLIDING SCAL... ACHS SQ Last administered on 05/27/25at 20:20; Start 05/27/25 at 07:30; Stop 06/26/25 at 07:29 Dextrose 50 ml AD PRN IV; Start 05/27/25 at 00:30; Stop 05/28/25 at 19:37; Status DC Glucagon 1 mg AD PRN IM; Start 05/27/25 at 00:30; Stop 05/28/25 at 19:37; Status DC Potassium Chloride 100 ml @ 100 mls/hr AD PRN IV; Start 05/27/25 at 00:30; Stop 06/26/25 at 00:29 Potassium Chloride 20 meq AD PRN PO; Start 05/27/25 at 00:30; Stop 06/26/25 at 00:29 Potassium Chloride 20 meq AD PRN PO Last administered on 05/28/25at 07:51; Start 05/27/25 at 00:30; Stop 06/26/25 at 00:29 Potassium Chloride 100 ml @ 50 mls/hr AD PRN IV; Start 05/27/25 at 00:30; Stop 05/27/25 at 06:59; Status DC Magnesium Sulfate 50 ml @ 0 mls/hr PROTOCOL PRN IV Last administered on 05/28/25at 07:51; Start 05/27/25 at 00:30; Stop 06/26/25 at 00:29 Pantoprazole Sodium 40 mg DAILY PO Last administered on 05/28/25at 07:51; Start 05/27/25 at 09:00; Stop 06/26/25 at 08:59 Ticagrelor 180 mg ONCE ONCE PO Last administered on 05/27/25at 11:12; Start 05/27/25 at 10:00; Stop 05/27/25 at 10:06; Status DC Ticagrelor 90 mg BID PO Last administered on 05/28/25at 08:04; Start 05/27/25 at 21:00; Stop 06/26/25 at 20:59 Wound Care/ Dressing Products Left buttock ulcer... BID TP Last administered on 05/28/25at 21:26; Start 05/27/25 at 21:00; Stop 06/26/25 at 20:59 Nystatin 1 APPLICATION BID TP Last administered on 05/28/25at 21:27; Start 05/27/25 at 21:00; Stop 06/26/25 at 20:59 Loratadine 10 mg DAILY PRN PO Last administered on 05/27/25at 22:48; Start 05/27/25 at 22:30; Stop 06/26/25 at 22:29 Loratadine 10 mg ONCE ONCE PO Last administered on 05/27/25at 23:00; Start 05/27/25 at 23:00; Stop 05/27/25 at 23:23; Status DC Lidocaine HCl 20 ml STK-MED ONCE .ROUTE; Start 05/28/25 at 15:10; Stop 05/28/25 at 15:10; Status DC Iohexol 35,000 mg STK-MED ONCE IV; Start 05/28/25 at 15:10; Stop 05/28/25 at 15:10; Status DC Verapamil HCl 5 mg STK-MED ONCE .ROUTE; Start 05/28/25 at 15:10; Stop 05/28/25 at 15:10; Status DC Heparin Sodium (Porcine) 10,000 unit STK-MED ONCE .ROUTE; Start 05/28/25 at 15:10; Stop 05/28/25 at 15:10; Status DC Heparin Sodium/ Sodium Chloride 1,000 ml @ As Directed STK-MED ONCE IV; Start 05/28/25 at 15:10; Stop 05/28/25 at 15:11; Status DC Nitroglycerin 50 mg STK-MED ONCE .ROUTE; Start 05/28/25 at 15:11; Stop 05/28/25 at 15:11; Status DC Fentanyl Citrate 100 mcg STK-MED ONCE .ROUTE; Start 05/28/25 at 16:39; Stop 05/28/25 at 16:39; Status DC Midazolam HCl 2 mg STK-MED ONCE .ROUTE; Start 05/28/25 at 16:40; Stop 05/28/25 at 16:40; Status DC Midazolam HCl 2 mg STK-MED ONCE .ROUTE; Start 05/28/25 at 16:49; Stop 05/28/25 at 16:50; Status DC Fentanyl Citrate 100 mcg STK-MED ONCE .ROUTE; Start 05/28/25 at 17:17; Stop 05/28/25 at 17:18; Status DC Labetalol HCl 20 mg STK-MED ONCE IV; Start 05/28/25 at 17:20; Stop 05/28/25 at 17:20; Status DC Heparin Sodium/ Sodium Chloride 500 ml @ As Directed STK-MED ONCE IV; Start 05/28/25 at 17:40; Stop 05/28/25 at 17:40; Status DC Nicardipine HCl 25 mg STK-MED ONCE IV; Start 05/28/25 at 17:44; Stop 05/28/25 at 17:44; Status DC Eptifibatide 20 mg STK-MED ONCE IVP; Start 05/28/25 at 17:47; Stop 05/28/25 at 17:47; Status DC Iohexol 35,000 mg STK-MED ONCE IV; Start 05/28/25 at 17:54; Stop 05/28/25 at 17:55; Status DC Eptifibatide 100 ml @ As Directed STK-MED ONCE IV; Start 05/28/25 at 17:58; Stop 05/28/25 at 17:58; Status DC Eptifibatide 20 mg STK-MED ONCE IVP; Start 05/28/25 at 17:58; Stop 05/28/25 at 17:58; Status DC Iohexol 75 ml STK-MED ONCE IV; Start 05/28/25 at 18:26; Stop 05/28/25 at 18:26; Status DC Midazolam HCl 2 mg STK-MED ONCE .ROUTE; Start 05/28/25 at 18:38; Stop 05/28/25 at 18:38; Status DC Iohexol 50 ml STK-MED ONCE IV; Start 05/28/25 at 19:10; Stop 05/28/25 at 19:10; Status DC Sodium Chloride 1,000 ml @ 150 mls/hr Q6H40M IV Last administered on 05/28/25at 21:11; Start 05/28/25 at 20:00; Stop 05/28/25 at 23:59 Dextrose 50 ml AD PRN IV; Start 05/28/25 at 20:00; Stop 06/27/25 at 19:59 Glucagon 1 mg AD PRN IM; Start 05/28/25 at 20:00; Stop 06/27/25 at 19:59 Ondansetron HCl 4 mg STK-MED ONCE .ROUTE; Start 05/28/25 at 19:43; Stop 05/28/25 at 19:43; Status DC Assessment/Plan ASSESSMENT: CAD WIHT HX NON STEMI W PEAK TROPONIN - 10/2024 S/P C WITH SUCCESSFUL PTCA/STENT LCX FAILED RCA REVASCULARIZATION WITH DISTAL/PROX RCA PERFORATION, V-FIB ARREST S/P DEFIB X 3 ECHO WITH TRIVIAL PERICARDIAL EFFUSION W/O TAMPONADE RESOLUTION OF PERICARDIAL EFFUSION EF > 55% 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 CAD WITH HISTORY OF CORONARY STENTS NON STEMI ON 10/29/2023 RCA ANGIOPLASTY ON 11/02/2023 AT [facility] [place], UNSUCCESSFUL PTCA HYPERTENSIVE HEART AND RENAL DISEASE WITH CKD 2 GERD LUMBAR STENOSIS WITH NEUROGENIC CLAUDICATION OTHER SPECIFIED SPONDYLOPATHY, LUMBAR REGION ATHEROSCLEROSIS OF LEGS BILATERAL RHEUMATOID ARTHRITIS HYPERLIPIDEMIA MIXED OSTEOPOROSIS STATIN MYOPATHY SHE PRESENTED WITH A NONSTEMI PLAN: PENDING HEART CATH THIS AFTERNOON STABILIZED ON NTG DRIP TO KEEP CP FREE CONTINUES ON IV HEPARIN PROTOCOL CONT ASA PLAVIX STATIN THERAPY CONT COREG AND NIFEDIPINE FOR HTN CONTROL WITH ADJUSTMENTS NEEDED APPRECIATE CARDIOLOGY EVALUATION ECHO BENIGN MONITOR GLUCOSE AND ADJUST INSULIN NEEDED SUPPLEMENT ELECTROLYTES ANSWERED PATIENT AND FAMILY QUESTIONS AT BEDSIDE BARBARA LARA MD May 28, 2025 22:45
[2025-05-29] VITALS (42 sets, daily range): BP systolic 81–145; BP diastolic 46–77; PULSE 73–107; RESP 10–26; TEMP 97.8–98.7; O2SAT 94–97
[2025-05-29] MEDS: EPTIFIBATIDE 75MG/100ML BOTTLE 100 ML IV SCH (01:42)
[2025-05-29 04:25] LABS: NUCLEATED RED BLOOD CELLS 0.0 % (0.0-0.19); PLATELET COUNT (AUTO) 197.0 K/uL (130-400); RED BLOOD CELL COUNT(AUTO) 3.67 MIL/uL (4.00-5.50); RED CELL DISTRIBUTION WIDTH 13.3 % (11.0-15.5); WHITE BLOOD COUNT (AUTO) 6.5 K/uL (4.8-10.8)
[2025-05-29 05:05] LABS: GLUCOSE,RANDOM 115.0 mg/dL (70-105); SODIUM SERUM 132.0 mmol/L (136-145); TOTAL PROTEIN, SERUM 6.4 g/dL (6.0-8.3); UREA NITROGEN, BLOOD 20.0 mg/dL (7-18)
[2025-05-29 05:35] LABS: ASPARTATE AMINOTRANSFERASE 106.0 U/L (10-37); CREATININE 0.8 mg/dL (0.5-1.0); GLOMERULAR FILTR. RATE CALC 80.0 mL/min (>90)
--- NOTE | 2025-05-29 08:44 | PN ---
[facility] CARDIOLOGY PROGRESS NOTE Date Patient Seen: May 29, 2025 Time of Visit: 08:36 Interval History: [ No acute events overnight. The patient underwent coronary angiogram yesterday showed patent SERRANO-LAD, SVG-D1/OM jump graft with 80-85% proximal and mid stenosis with significant mid segment burden. Status post IVUS guided PTCA/PCI of the proximal (4.5 x 23 mm JANY) and mid ( x 33 mm JANY) of the SVG to D1/OM jump graft, complicated by InStent thrombosis in his now status post aspiration thrombectomy of the SVG to D1/OM jump graft, patient tolerated the procedure well. Patient currently denies any cardiac symptoms or anginal equivalents. Hemodynamically stable Physical Examination: General: Alert and oriented x 3. NAD HEENT: NC/AT. Oral mucosa is moist. Neck: No masses, JVD, or carotid bruits Lungs: NRD. SCM. Bilateral air entry. CTA. No wheezing, rales or rhonchi. Cardio: Regular rate. Normal S1 and S2. +S4. PMI was not displaced. Abdomen: Soft. NT. ND. Normal active bowel sounds x 4 quadrants. Extremities: Diminished throughout Neuro: CN II-XII were grossly intact. No obvious focal deficits. Laboratory: [ ] Hematology Labs: Test 05/29/25 04:18 05/28/25 06:34 Range/Units White Blood Count 6.5 4.8-10.8 K/uL Red Blood Count 3.67 L 4.00-5.50 MIL/uL Hemoglobin 11.2 L 12.0-16.0 g/dL Hematocrit 34.5 L 36-48 % Mean Corpuscular Volume 94.0 79-99 fL Mean Corpuscular Hemoglobin 30.5 27.0-33.0 pg Mean Corpuscular Hemoglobin Concent 32.5 32.0-36.0 g/dL Red Cell Distribution Width 13.3 11.0-15.5 % Platelet Count 197 130-400 K/uL Mean Platelet Volume 10.1 7.5-10.5 fL Nucleated Red Blood Cells 0.0 0.0-0.19 % Immature Granulocyte % (Auto) 0.2 0-1 % Neutrophils (%) (Auto) 58.6 40.0-77.0 % Lymphocytes (%) (Auto) 21.7 21.0-51.0 % Monocytes (%) (Auto) 10.2 3.0-13.0 % Eosinophils (%) (Auto) 8.3 H 0.0-8.0 % Basophils (%) (Auto) 1.0 0.0-5.0 % Neutrophils # (Auto) 3.4 1.8-7.7 K/uL Lymphocytes # (Auto) 1.3 1.0-4.8 K/uL Monocytes # (Auto) 0.6 0.1-1.0 K/uL Eosinophils # (Auto) 0.48 0.00-0.70 K/uL Basophils # (Auto) 0.06 0.00-0.20 K/uL Absolute Immature Granulocyte (auto 0.01 0-1 K/uL Chemistry Labs: Test 05/29/25 04:18 05/28/25 21:09 05/28/25 06:34 05/27/25 13:18 Range/Units Sodium Level 132 L 136-145 mmol/L Potassium Level 5.5 H 3.5-5.1 mmol/L Chloride Level 102 101-111 mmol/L Carbon Dioxide Level 19 L 21-32 mmol/L Blood Urea Nitrogen 20 H 7-18 mg/dL Creatinine 0.8 0.5-1.0 mg/dL Glomerular Filtration Rate Calc 80 >90 mL/min Random Glucose 115 H 70-105 mg/dL Total Calcium 8.2 L 8.5-10.1 mg/dL Magnesium Level 2.20 1.80-2.40 mg/dL Total Bilirubin 0.6 0.2-1.0 mg/dL Aspartate Amino Transf (AST/SGOT) 106 H 10-37 U/L Alanine Aminotransferase (ALT/SGPT) 56 12-78 U/L Alkaline Phosphatase 230 H 50-136 U/L Total Protein 6.4 6.0-8.3 g/dL Albumin 2.6 L 3.5-5.0 g/dL Whole Blood Glucose 213 #H 70-110 MG/DL Phosphorus Level 3.2 2.5-4.9 mg/dL Troponin I High Sensitivity 4317 *H 4-50 ng/L Coagulation Labs: Test 05/28/25 06:34 Range/Units Prothrombin Time 11.1 9.6-11.6 SEC Prothromb Time International Ratio 1.05 0.85-1.15 Activated Partial Thromboplast Time 96.8 *H 26.3-35.5 SEC Diagnostics / Radiology: [Copy/Paste Echos/Imaging Report here] Impression and Plan: [-ACS-NSTEMI -CAD s/p 3V CABG (SERRANO-LAD, sequential SVG-D1-OM2) -ACS-NSTEMI s/p LHC/coronary angiogram done on 11/18/2024 which identified 3V CAD with 3/3 grafts patent, but 50% stenosis in the ostium of the SVG-D1-OM2, s/p PCI with PTCA and JANY placement (MOF 3.0x18 mm) in the proximal LCx -Unsuccessful PCI of the RCA [employer]ER complicated by 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 ACS-NSTEMI -Cardiac enzymes-HS troponin I: 533>5073> peaked 7172 and have downtrended to 4317 -Continue ticagrelor 90 mg BID , aspirin 81 mg daily, IV heparin infusion (ACS protocol), carvedilol 6.25 mg BID, and atorvastatin 20 mg QHS. -Continue on the IV nitroglycerin infusion -2D echocardiogram showed LVEF 55-60%, stage I diastolic dysfunction no wall motion abnormalities. -The patient underwent coronary angiogram yesterday showed patent SERRANO-LAD, SVG- D1/OM jump graft with 80-85% proximal and mid stenosis with significant mid segment burden. -Status post IVUS guided PTCA/PCI of the proximal (4.5 x 23 mm JANY) and mid ( x 33 mm JANY) of the SVG to D1/OM jump graft -Complicated by InStent thrombosis in his now status post aspiration thrombectomy of the SVG to D1/OM jump graft, the patient has remained hemodynamically stable tolerated the procedure well -Given the patient's significant clot burden we will continued double bolus of IV Integrilin and infusion that we will continue for a total of 16 hours postprocedure -this morning we will obtain a repeat ECG, and we will order a limited 2D echocardiogram -no plan for further intervention at this time we will continue with medical management, a long discussion took place with the family and the pacer guarding procedure and all the transpired -DAPT for 12 months ([id number] mg daily, ticagrelor 90 mg b.i.d.), atorvastatin 20 mg daily, Coreg 6.25 mg b.i.d. -hopefully the patient will be discharged the next 24-48 hours if 2D echocardiogram is unchanged Thank you for this consult cardiology will continue to follow along, formal recommendations pending 2D echocardiogram in repeat ECG Satnam multani MD ATTESTATION BY PHYSICIAN I have seen and examined the patient, reviewed the above documentation, participated in medical decision making, made necessary modifications, and agree with the treatment plan as documented by my mid-level provider above. MD PANDA Keane JAMES R MD May 29, 2025 08:44
--- NOTE | 2025-05-29 09:07 | NUR ---
0800 Patient with an elevated potassium level of 5.5, Dr. Satnam Baxter notified at this time. 0900 Integrilin infusion discontinue at this time, vitals as charted, no further needs noted.
--- NOTE | 2025-05-29 13:32 | NUR ---
Stent card given to patient at this time, copy placed in chart.
--- NOTE | 2025-05-29 18:17 | PN ---
Subjective Review of Systems PROGRESS NOTE Date of Visit: May 29, 2025 Time of Visit: 18:09 Events since last encounter RESTING IN CHAIR Subjective NO RECURRENT CP General: No Fever, No Chills, No Night Sweats, No Fatigue, No Malaise, No Ap petite, No Other HEENT: No Head Aches, No Visual Changes, No Eye Pain, No Ear Pain, No Dysphasia, No Sinus Congestion, No Post Nasal Drip, No Sore Throat, No Other Pulmonary: No Dyspnea, No Cough, No Pleuritic Chest Pain, No Other Cardiovascular: No: Chest Pain, Palpitations, Orthopnea, Paroxysmal Noc. Dyspnea, Edema, Lt Headedness, Other Gastrointestinal: No: Nausea, Vomiting, Abdominal Pain, Diarrhea, Constipation, Melena, Hematochezia, Other Genitourinary: No Dysuria, No Frequency, No Incontinence, No Hematuria, No Retention, No Other Musculoskeletal: No: other, neck pain, shoulder pain, arm pain, back pain, hand pain, leg pain, foot pain Skin: No Urticaria, No Rash, No Other Neurological: No: Weakness, Numbness, Incoordination, Change in speech, Confusion, Seizures, Other Objective Vitals and I/O Vital Sign (Last 24 Hours) 05/29/25 16:00 Temp 98.6 Pulse 89 Resp 19 B/P (MAP) 131/62 Pulse Ox 93 O2 Delivery Room Air O2 Flow Rate 0 FiO2 21 Intake & Output (last 24hrs) 05/28/25 05/28/25 05/29/25 15:00 23:00 07:00 Intake Total 82.2 ml 640.8 ml 105.6 ml Output Total 400 ml 400 ml Balance 82.2 ml 240.8 ml -294.4 ml General: Alert, Oriented X3, Cooperative, No acute distress HEENT: Atraumatic, PERRLA, EOMI Neck: Supple, No JVD Lungs: Clear to auscultation, Normal air movement, NL respiratory effort Heart: Regular rate, Regular rhythm Abdomen: Normal bowel sounds, Soft, No tenderness, No masses Extremities: No clubbing, No cyanosis, No edema, Normal pulses Skin: No rashes, No breakdown Neuro: Normal speech, Normal tone Psych/Mental Status: Mental status NL, Mood NL Results RADIOLOGY: [] EKG: [] Laboratory Tests Test 05/28/25 18:51 05/28/25 21:09 05/29/25 04:18 05/29/25 08:47 Kaolin Activated Coagulation Time 511 SEC (74-137) H Whole Blood Glucose 213 MG/DL (70-110) #H White Blood Count 6.5 K/uL (4.8-10.8) Red Blood Count 3.67 MIL/uL (4.00-5.50) L Hemoglobin 11.2 g/dL (12.0-16.0) L Hematocrit 34.5 % (36-48) L Mean Corpuscular Volume 94.0 fL (79-99) Mean Corpuscular Hemoglobin 30.5 pg (27.0-33.0) Mean Corpuscular Hemoglobin Concent 32.5 g/dL (32.0-36.0) Red Cell Distribution Width 13.3 % (11.0-15.5) Platelet Count 197 K/uL (130-400) Mean Platelet Volume 10.1 fL (7.5-10.5) Nucleated Red Blood Cells 0.0 % (0.0-0.19) Sodium Level 132 mmol/L (136-145) L Potassium Level 5.5 mmol/L (3.5-5.1) H 4.6 mmol/L (3.5-5.1) Chloride Level 102 mmol/L (101-111) Carbon Dioxide Level 19 mmol/L (21-32) L Blood Urea Nitrogen 20 mg/dL (7-18) H Creatinine 0.8 mg/dL (0.5-1.0) Glomerular Filtration Rate Calc 80 mL/min (>90) Random Glucose 115 mg/dL (70-105) H Total Calcium 8.2 mg/dL (8.5-10.1) L Magnesium Level 2.20 mg/dL (1.80-2.40) Total Bilirubin 0.6 mg/dL (0.2-1.0) Aspartate Amino Transf (AST/SGOT) 106 U/L (10-37) H Alanine Aminotransferase (ALT/SGPT) 56 U/L (12-78) Alkaline Phosphatase 230 U/L (50-136) H Total Protein 6.4 g/dL (6.0-8.3) Albumin 2.6 g/dL (3.5-5.0) L Test 05/29/25 11:03 05/29/25 16:07 Whole Blood Glucose 264 MG/DL (70-110) H 218 MG/DL (70-110) H Medications Current Medications Nitroglycerin 0.4 mg Q5M PRN SL; Start 05/26/25 at 19:30 Aspirin 325 mg ONCE ONCE PO Last administered on 05/26/25at 19:29; Start 05/26/25 at 19:30; Stop 05/26/25 at 19:31; Status DC Heparin Sodium (Porcine) *calculation based on ACTUAL B... AD PRN IV Last administered on 05/26/25at 21:07; Start 05/26/25 at 22:00; Stop 06/25/25 at 21:59 Heparin Sodium/ Dextrose 250 ml @ 0 mls/hr Q6H IV Last administered on 05/28/25at 06:31; Start 05/26/25 at 22:00; Stop 06/25/25 at 21:59 Nitroglycerin/ Dextrose 0 ml @ 0 mls/hr AD PRN IV Last administered on 05/26/25at 21:37; Start 05/26/25 at 21:00; Stop 06/25/25 at 20:59 Insulin Human Regular INSULIN SLIDING SCAL... ACHS SQ; Start 05/27/25 at 07:30; Stop 05/27/25 at 00:55; Status DC Acetaminophen 650 mg Q6H PRN PO Last administered on 05/27/25at 18:14; Start 05/26/25 at 21:30; Stop 06/25/25 at 21:29 Ondansetron HCl 4 mg Q6H PRN IVP; Start 05/26/25 at 21:30; Stop 06/25/25 at 21:29 Aspirin 81 mg DAILY PO Last administered on 05/29/25at 08:44; Start 05/27/25 at 09:00; Stop 06/26/25 at 08:59 Atorvastatin Calcium 20 mg HS PO Last administered on 05/28/25at 21:24; Start 05/27/25 at 21:00; Stop 06/26/25 at 20:59 Carvedilol 6.25 mg BID PO Last administered on 05/28/25at 21:26; Start 05/27/25 at 09:00; Stop 06/26/25 at 08:59 Clopidogrel Bisulfate 75 mg DAILY PO Last administered on 05/27/25at 08:05; Start 05/27/25 at 09:00; Stop 05/27/25 at 10:00; Status DC Loratadine 10 mg DAILY PRN PO; Start 05/27/25 at 00:00; Stop 05/27/25 at 22:34; Status DC Nitroglycerin 0.4 mg AD SL; Start 05/27/25 at 00:00; Stop 05/27/25 at 00:08; Status DC Spironolactone 25 mg DAILY PO Last administered on 05/28/25at 07:52; Start 05/27/25 at 09:00; Stop 06/26/25 at 08:59 Sulfasalazine 500 mg BID PO Last administered on 05/29/25at 08:44; Start 05/27/25 at 09:00; Stop 06/06/25 at 08:59 Home Med BID PO; Start 05/27/25 at 09:00; Stop 06/26/25 at 08:59 Hydralazine HCl 50 mg BID PO; Start 05/27/25 at 09:00; Stop 05/27/25 at 10:05; Status DC Insulin Glargine 30 units HS SQ Last administered on 05/28/25at 21:34; Start 05/27/25 at 21:00; Stop 06/26/25 at 20:59 Home Med DAILY PO; Start 05/27/25 at 09:00; Stop 06/26/25 at 08:59 Home Med DAILY PO; Start 05/27/25 at 09:00; Stop 06/26/25 at 08:59 Nifedipine 60 mg DAILY PO Last administered on 05/29/25at 08:44; Start 05/27/25 at 09:00; Stop 06/26/25 at 08:59 Pyridoxine HCl 100 mg DAILY PO Last administered on 05/29/25at 08:44; Start 05/27/25 at 09:00; Stop 06/26/25 at 08:59 Home Med DAILY PO; Start 05/27/25 at 09:00; Stop 06/26/25 at 08:59 Insulin Human Regular INSULIN SLIDING SCAL... ACHS SQ Last administered on 05/29/25at 16:40; Start 05/27/25 at 07:30; Stop 06/26/25 at 07:29 Dextrose 50 ml AD PRN IV; Start 05/27/25 at 00:30; Stop 05/28/25 at 19:37; Status DC Glucagon 1 mg AD PRN IM; Start 05/27/25 at 00:30; Stop 05/28/25 at 19:37; Status DC Potassium Chloride 100 ml @ 100 mls/hr AD PRN IV; Start 05/27/25 at 00:30; Stop 06/26/25 at 00:29 Potassium Chloride 20 meq AD PRN PO; Start 05/27/25 at 00:30; Stop 06/26/25 at 00:29 Potassium Chloride 20 meq AD PRN PO Last administered on 05/28/25at 07:51; Start 05/27/25 at 00:30; Stop 06/26/25 at 00:29 Potassium Chloride 100 ml @ 50 mls/hr AD PRN IV; Start 05/27/25 at 00:30; Stop 05/27/25 at 06:59; Status DC Magnesium Sulfate 50 ml @ 0 mls/hr PROTOCOL PRN IV Last administered on 05/28/25at 07:51; Start 05/27/25 at 00:30; Stop 06/26/25 at 00:29 Pantoprazole Sodium 40 mg DAILY PO Last administered on 05/29/25at 08:44; Start 05/27/25 at 09:00; Stop 06/26/25 at 08:59 Ticagrelor 180 mg ONCE ONCE PO Last administered on 05/27/25at 11:12; Start 05/27/25 at 10:00; Stop 05/27/25 at 10:06; Status DC Ticagrelor 90 mg BID PO Last administered on 05/29/25at 08:44; Start 05/27/25 at 21:00; Stop 06/26/25 at 20:59 Wound Care/ Dressing Products Left buttock ulcer... BID TP Last administered on 05/29/25at 08:45; Start 05/27/25 at 21:00; Stop 06/26/25 at 20:59 Nystatin 1 APPLICATION BID TP Last administered on 05/29/25at 08:45; Start 05/27/25 at 21:00; Stop 06/26/25 at 20:59 Loratadine 10 mg DAILY PRN PO Last administered on 05/27/25at 22:48; Start 05/27/25 at 22:30; Stop 06/26/25 at 22:29 Loratadine 10 mg ONCE ONCE PO Last administered on 05/27/25at 23:00; Start 05/27/25 at 23:00; Stop 05/27/25 at 23:23; Status DC Lidocaine HCl 20 ml STK-MED ONCE .ROUTE; Start 05/28/25 at 15:10; Stop 05/28/25 at 15:10; Status DC Iohexol 35,000 mg STK-MED ONCE IV; Start 05/28/25 at 15:10; Stop 05/28/25 at 15:10; Status DC Verapamil HCl 5 mg STK-MED ONCE .ROUTE; Start 05/28/25 at 15:10; Stop 05/28/25 at 15:10; Status DC Heparin Sodium (Porcine) 10,000 unit STK-MED ONCE .ROUTE; Start 05/28/25 at 15:10; Stop 05/28/25 at 15:10; Status DC Heparin Sodium/ Sodium Chloride 1,000 ml @ As Directed STK-MED ONCE IV; Start 05/28/25 at 15:10; Stop 05/28/25 at 15:11; Status DC Nitroglycerin 50 mg STK-MED ONCE .ROUTE; Start 05/28/25 at 15:11; Stop 05/28/25 at 15:11; Status DC Fentanyl Citrate 100 mcg STK-MED ONCE .ROUTE; Start 05/28/25 at 16:39; Stop 05/28/25 at 16:39; Status DC Midazolam HCl 2 mg STK-MED ONCE .ROUTE; Start 05/28/25 at 16:40; Stop 05/28/25 at 16:40; Status DC Midazolam HCl 2 mg STK-MED ONCE .ROUTE; Start 05/28/25 at 16:49; Stop 05/28/25 at 16:50; Status DC Fentanyl Citrate 100 mcg STK-MED ONCE .ROUTE; Start 05/28/25 at 17:17; Stop 05/28/25 at 17:18; Status DC Labetalol HCl 20 mg STK-MED ONCE IV; Start 05/28/25 at 17:20; Stop 05/28/25 at 17:20; Status DC Heparin Sodium/ Sodium Chloride 500 ml @ As Directed STK-MED ONCE IV; Start 05/28/25 at 17:40; Stop 05/28/25 at 17:40; Status DC Nicardipine HCl 25 mg STK-MED ONCE IV; Start 05/28/25 at 17:44; Stop 05/28/25 at 17:44; Status DC Eptifibatide 20 mg STK-MED ONCE IVP; Start 05/28/25 at 17:47; Stop 05/28/25 at 17:47; Status DC Iohexol 35,000 mg STK-MED ONCE IV; Start 05/28/25 at 17:54; Stop 05/28/25 at 17:55; Status DC Eptifibatide 100 ml @ As Directed STK-MED ONCE IV; Start 05/28/25 at 17:58; Stop 05/28/25 at 17:58; Status DC Eptifibatide 20 mg STK-MED ONCE IVP; Start 05/28/25 at 17:58; Stop 05/28/25 at 17:58; Status DC Iohexol 75 ml STK-MED ONCE IV; Start 05/28/25 at 18:26; Stop 05/28/25 at 18:26; Status DC Midazolam HCl 2 mg STK-MED ONCE .ROUTE; Start 05/28/25 at 18:38; Stop 05/28/25 at 18:38; Status DC Iohexol 50 ml STK-MED ONCE IV; Start 05/28/25 at 19:10; Stop 05/28/25 at 19:10; Status DC Sodium Chloride 1,000 ml @ 150 mls/hr Q6H40M IV Last administered on 05/28/25at 21:11; Start 05/28/25 at 20:00; Stop 05/28/25 at 23:59; Status DC Dextrose 50 ml AD PRN IV; Start 05/28/25 at 20:00; Stop 06/27/25 at 19:59 Glucagon 1 mg AD PRN IM; Start 05/28/25 at 20:00; Stop 06/27/25 at 19:59 Ondansetron HCl 4 mg STK-MED ONCE .ROUTE; Start 05/28/25 at 19:43; Stop 05/28/25 at 19:43; Status DC Eptifibatide 100 ml @ 0 mls/hr PROTOCOL IV Last administered on 05/29/25at 01:42; Start 05/29/25 at 01:30; Stop 06/28/25 at 01:29 Assessment/Plan ASSESSMENT: THIS IS A 69 YR OLD WOMAN WITH HISTORY OF CAD WIHT HX NON STEMI W PEAK TROPONIN 12K - 10/2024 S/P [facility] WITH SUCCESSFUL PTCA/STENT LCX FAILED RCA REVASCULARIZATION WITH DISTAL/PROX RCA PERFORATION, V-FIB ARREST S/P DEFIB X 3 ECHO WITH TRIVIAL PERICARDIAL EFFUSION W/O TAMPONADE RESOLUTION OF PERICARDIAL EFFUSION EF > 55% 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 CAD WITH HISTORY OF CORONARY STENTS NON STEMI ON 10/29/2023 RCA ANGIOPLASTY ON 11/02/2023 [place] [facility] [place] UNSUCCESSFUL PTCA HYPERTENSIVE HEART AND RENAL DISEASE WITH CKD 2 GERD LUMBAR STENOSIS WITH NEUROGENIC CLAUDICATION OTHER SPECIFIED SPONDYLOPATHY, LUMBAR REGION ATHEROSCLEROSIS OF LEGS BILATERAL RHEUMATOID ARTHRITIS HYPERLIPIDEMIA MIXED OSTEOPOROSIS STATIN MYOPATHY SHE PRESENTED WITH A NONSTEMI WITH PEAK TROPONIN 7,000 2D echocardiogram showed LVEF 55-60%, stage I diastolic dysfunction no wall motion [id number]/3/2025 S/P [facility] patent SERRANO-LAD, SVG-D1/OM jump graft with 80-85% proximal and mid stenosis with significant mid segment burden -05/28/2025 S/P IVUS guided PTCA/PCI of the proximal (4.5 x 23 mm JANY) and mid ( x 33 mm JANY) of the SVG to D1/OM jump graft Complicated by InStent thrombosis S/P Aspiration Thrombectomy of the SVG to D1/OM jump graft 05/28/2025 PLAN: CARDIOLOGY CONTINUING DOUBLE BOLUS OF IV INTEGRILIN INFUSION X 16 HRS POST PROCEDURE REPEAT 2 D ECHO PENDING NO FURTHER INTERVENTION PLANNED RECOMMENDATIONS TO CONTINE DAPT X 12 MONTHS INCREASE REHAB ABS TOLERATED CONT ASA PLAVIX STATIN THERAPY CONT COREG AND NIFEDIPINE FOR HTN CONTROL MONITOR GLUCOSE AND ADJUST INSULIN NEEDED SUPPLEMENT ELECTROLYTES ANSWERED PATIENT AND FAMILY QUESTIONS AT BEDSIDE D/C PLANNING IN PROGRESS BARBARA LARA MD May 29, 2025 18:17
[2025-05-30] VITALS (8 sets, daily range): BP systolic 123–131; BP diastolic 56–66; PULSE 70–97; RESP 18–20; TEMP 97.8–99; O2SAT 96–98
--- NOTE | 2025-05-30 00:50 | HMCSR ---
APPROVED REPORT EXAM: LIMITED Two-dimensional and M-mode echocardiogram. INDICATION ICD: s/p C 2D Dimensions RVDd 3.0 cm LVED Vol(simp.) 70.1 mL LVES Vol(simp.) 33.1 mL LVEF(%, simp.) 53 % LA ESV INDEX (BP) 18.77 mL/m2 Deformation Strain Apical 4 -12.4 % Apical 2 -13.6 % Apical 3 -13.8 % Global Strain -13.3 % Mitral Valve MV E Vmax 63.6 cm/s DECEL Time 158 ms MV A Vmax 84.0 cm/s P 1/2 T 56 ms E/A ratio 0.8 MVA (PHT) 3.9 cm2 TDI E/E' Medial 11.5 E/E' Lateral 8.2 Medial E' Peak V 5.55 cm/s Lateral E' Peak V 7.71 cm/s Left Ventricle The left ventricle is normal in size. There is paradoxical septal wall motion noted. The basal/mid/apical inferior wall is hypokinetic. The apical inferior lateral and apical anterior lateral goodwin are severely hypokinetic. The basal/mid inferior lateral and anterior lateral goodwin are normal in function. The anterior wall is normal in function. Mild concentric left ventricular hypertrophy. Left ventricle systolic function is moderately depressed, estimated LVEF 40 to 45%. Stage I diastolic dysfunction. Right Ventricle The right ventricle is normal size. The right ventricular systolic function is normal. Aortic Valve The aortic valve is not well visualized. Mitral Valve Mitral valve is not well visualized. Tricuspid Valve Tricuspid valve is not well visualized. Pulmonic Valve Pulmonic valve is not well visualized. Pericardium Trace circumferential pericardial effusion noted. Conclusion Limited echocardiogram to assess wall motion, systolic/diastolic function status post PCI. Mild concentric hypertrophy of the left ventricle is noted. There is paradoxical septal wall motion noted. The basal/mid/apical inferior wall is hypokinetic. The apical inferior lateral and apical anterior lateral goodwin are severely hypokinetic. The basal/mid inferior lateral and anterior lateral goodwin are normal in function. The anterior wall is normal in function. Left ventricle systolic function is moderately depressed, estimated LVEF 40 to 45%. Stage I diastolic dysfunction. Trace circumferential pericardial effusion.
--- NOTE | 2025-05-30 09:48 | PN ---
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 She underwent a cardiac catheterization on 05/28/2025 that demonstrated a patent SERRANO-LAD, SVG-D1/OM sequential graft with 80-85% proximal and mid stenosis with significant mid segment burden. She underwent IVUS guided PTCA/PCI of the proximal (4.5 x 23 mm JANY) and mid ( x 33 mm JANY) of the SVG to D1/OM sequential graft, complicated by immediate in-stent thrombosis, treated with aspiration thrombectomy. She has been on intensified dual antiplatelet therapy with Brilinta and aspirin. Overnight, she was uncomfortable lying supine with anxiety and orthopnea. Clinically, on exam she has rales bilaterally. Physical Examination: GENERAL: No acute distress. HEAD: Normal with no signs of head trauma. EYES: PERRLA, EOMI, conjunctiva and sclera normal. NECK: Supple without JVD. There is no tenderness, lymphadenopathy, or masses. No thyromegaly. Normal carotid upstrokes without bruits. LUNGS: Bibasilar rales noted. HEART: Normal rate and rhythm. Normal S1 and S2 without murmurs, gallop or rub. VASC: Peripheral pulses +2 bilaterally. EXT: No clubbing, cyanosis or edema. NEURO: Awake, alert, and oriented x3. No focal neurological deficits noted. Laboratory: Hematology Labs: Test 05/29/25 04:18 Range/Units White Blood Count 6.5 4.8-10.8 K/uL Red Blood Count 3.67 L 4.00-5.50 MIL/uL Hemoglobin 11.2 L 12.0-16.0 g/dL Hematocrit 34.5 L 36-48 % Mean Corpuscular Volume 94.0 79-99 fL Mean Corpuscular Hemoglobin 30.5 27.0-33.0 pg Mean Corpuscular Hemoglobin Concent 32.5 32.0-36.0 g/dL Red Cell Distribution Width 13.3 11.0-15.5 % Platelet Count 197 130-400 K/uL Mean Platelet Volume 10.1 7.5-10.5 fL Nucleated Red Blood Cells 0.0 0.0-0.19 % Chemistry Labs: Test 05/30/25 05:35 05/29/25 08:47 05/29/25 04:18 Range/Units Whole Blood Glucose 75 70-110 MG/DL Potassium Level 4.6 3.5-5.1 mmol/L Sodium Level 132 L 136-145 mmol/L Chloride Level 102 101-111 mmol/L Carbon Dioxide Level 19 L 21-32 mmol/L Blood Urea Nitrogen 20 H 7-18 mg/dL Creatinine 0.8 0.5-1.0 mg/dL Glomerular Filtration Rate Calc 80 >90 mL/min Random Glucose 115 H 70-105 mg/dL Total Calcium 8.2 L 8.5-10.1 mg/dL Magnesium Level 2.20 1.80-2.40 mg/dL Total Bilirubin 0.6 0.2-1.0 mg/dL Aspartate Amino Transf (AST/SGOT) 106 H 10-37 U/L Alanine Aminotransferase (ALT/SGPT) 56 12-78 U/L Alkaline Phosphatase 230 H 50-136 U/L Total Protein 6.4 6.0-8.3 g/dL Albumin 2.6 L 3.5-5.0 g/dL Coagulation Labs: Test 05/28/25 18:51 Range/Units Kaolin Activated Coagulation Time 511 H 74-137 SEC Diagnostics / Radiology: 2D echocardiogram 05/28/2025: Limited echocardiogram to assess wall motion, systolic/diastolic function status post PCI. Mild concentric hypertrophy of the left ventricle is noted. There is paradoxical septal wall motion noted. The basal/mid/apical inferior wall is hypokinetic. The apical inferior lateral and apical anterior lateral goodwin are severely hypokinetic. The basal/mid inferior lateral and anterior lateral goodwin are normal in function. The anterior wall is normal in function. Left ventricle systolic function is moderately depressed, estimated LVEF 40 to 45%. Stage I diastolic dysfunction. Trace circumferential pericardial effusion. Impression and Plan: Non ST segment elevation NM with peak troponin of 7172: Coronary artery disease status post prior coronary artery bypass with cardiac catheterization on 05/28/2025 demonstrating a patent SERRANO-LAD, SVG-D1/OM jump graft with 80-85% proximal and mid stenosis with significant mid segment burden Status post IVUS guided PTCA/PCI of the proximal (4.5 x 23 mm JANY) and mid ( x 33 mm JANY) of the SVG to D1/OM jump graft, complicated by in-stent thrombosis, now status post aspiration thrombectomy of the SVG to D1/OM jump graft: -continue dual antiplatelet therapy Brilinta 90 mg p.o. b.i.d., [id number] mg p.o. daily, atorvastatin 20 mg p.o. q.h.s. and carvedilol 6.25 mg p.o. b.i.d. Mild ischemic cardiomyopathy with an LVEF of 40-45% by 2D echocardiogram 05/28/2025: -continue carvedilol 6.25 mg p.o. b.i.d. -the patient has documented allergy to dapaglaflozin, lisinopril, losartan and valsartan but upon further questioning, she does not recall any true allergy other than perhaps just side effects (such as upset stomach, some anxiety or ot her minor symptoms) with medications in the past -today, she offers symptoms suggestive of acute CHF and we will obtain a chest x-ray, BNP and routine labs -we will consider low-dose Entresto to her medical therapy, defer to Dr. Satnam Baxter -begin Lasix 20 mg IV q.12 hours, follow-up on chest x-ray and labs Acute systolic congestive heart failure: -as outlined above, begin Lasix, consider low-dose Entresto and follow-up on chest x-ray and labs Comorbidities: Hypertension Hyperlipidemia with statin intolerance at higher doses, continue low-dose atorvastatin 20 mg p.o. 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 with resulting VF cardiac arrest s/p ACLS resulting in ROSC on 11/18/2024 Prior LVEF of 50-55% by echo done 01/16/2025 Intolerance to ACEI/ARB therapy (can not recall intolerance) but no true allergy reported Rheumatoid arthritis PHYSICIAN 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
[2025-05-30 10:06] LABS: NUCLEATED RED BLOOD CELLS 0.0 % (0.0-0.19); PLATELET COUNT (AUTO) 191.0 K/uL (130-400); RED BLOOD CELL COUNT(AUTO) 3.61 MIL/uL (4.00-5.50); RED CELL DISTRIBUTION WIDTH 13.2 % (11.0-15.5); WHITE BLOOD COUNT (AUTO) 7.7 K/uL (4.8-10.8)
[2025-05-30 10:17] LABS: CREATININE 1.1 mg/dL (0.5-1.0); GLOMERULAR FILTR. RATE CALC 55.0 mL/min (>90); GLUCOSE,RANDOM 290.0 mg/dL (70-105); SODIUM SERUM 134.0 mmol/L (136-145); UREA NITROGEN, BLOOD 23.0 mg/dL (7-18)
--- NOTE | 2025-05-30 18:18 | PN ---
Subjective Review of Systems PROGRESS NOTE Date of Visit: May 30, 2025 Time of Visit: 18:09 Events since last encounter PATIENT RESTING IN BED Subjective NO RECURRENT CP BUT HAVING PROBLEMS LAYING FLAT DUE TO SOB General: No Fever, No Chills, No Night Sweats, No Fatigue, No Malaise, No Appetite, No Other HEENT: No Head Aches, No Visual Changes, No Eye Pain, No Ear Pain, No Dysphasia, No Sinus Congestion, No Post Nasal Drip, No Sore Throat, No Other Pulmonary: No Dyspnea, No Cough, No Pleuritic Chest Pain; Other (ORTHOPNEA) Cardiovascular: No: Chest Pain, Palpitations, Orthopnea, Paroxysmal Noc. Dyspnea, Edema, Lt Headedness, Other Gastrointestinal: No: Nausea, Vomiting, Abdominal Pain, Diarrhea, Constipation, Melena, Hematochezia, Other Genitourinary: No Dysuria, No Frequency, No Incontinence, No Hematuria, No Retention, No Other Musculoskeletal: No: other, neck pain, shoulder pain, arm pain, back pain, hand pain, leg pain, foot pain Skin: No Urticaria, No Rash, No Other Neurological: No: Weakness, Numbness, Incoordination, Change in speech, Confusion, Seizures, Other Objective Vitals and I/O Vital Sign (Last 24 Hours) 05/30/25 05/30/25 05/30/25 08:45 12:20 16:47 Temp 99.0 Pulse 97 Resp 20 B/P (MAP) 129/64 Pulse Ox 97 O2 Delivery Room Air O2 Flow Rate 0.0 FiO2 21 Intake & Output (last 24hrs) 05/29/25 05/29/25 05/30/25 15:00 23:00 07:00 Intake Total 16.2 ml Balance 16.2 ml General: Alert, Oriented X3, Cooperative, No acute distress HEENT: Atraumatic, PERRLA, EOMI Neck: Supple, No JVD Lungs: Clear to auscultation, Normal air movement, NL respiratory effort Heart: Regular rate, Regular rhythm Abdomen: Normal bowel sounds, Soft, No tenderness, No masses Extremities: No clubbing, No cyanosis, No edema, Normal pulses Skin: No rashes, No breakdown Neuro: Normal speech, Normal tone Psych/Mental Status: Mental status NL, Mood NL Results RADIOLOGY: [] EKG: [] Laboratory Tests Test 05/29/25 19:57 12/5/25 23:57 05/30/25 01:21 05/30/25 05:35 Whole Blood Glucose 177 MG/DL (70-110) H 73 MG/DL (70-110) # 83 MG/DL (70-110) 75 MG/DL (70-110) Test 05/30/25 09:59 05/30/25 12:05 05/30/25 16:13 White Blood Count 7.7 K/uL (4.8-10.8) Red Blood Count 3.61 MIL/uL (4.00-5.50) L Hemoglobin 11.1 g/dL (12.0-16.0) L Hematocrit 34.4 % (36-48) L Mean Corpuscular Volume 95.3 fL (79-99) Mean Corpuscular Hemoglobin 30.7 pg (27.0-33.0) Mean Corpuscular Hemoglobin Concent 32.3 g/dL (32.0-36.0) Red Cell Distribution Width 13.2 % (11.0-15.5) Platelet Count 191 K/uL (130-400) Mean Platelet Volume 10.1 fL (7.5-10.5) Nucleated Red Blood Cells 0.0 % (0.0-0.19) Sodium Level 134 mmol/L (136-145) L Potassium Level 4.5 mmol/L (3.5-5.1) Chloride Level 99 mmol/L (101-111) L Carbon Dioxide Level 25 mmol/L (21-32) Blood Urea Nitrogen 23 mg/dL (7-18) H Creatinine 1.1 mg/dL (0.5-1.0) H Glomerular Filtration Rate Calc 55 mL/min (>90) Random Glucose 290 mg/dL (70-105) H Total Calcium 8.2 mg/dL (8.5-10.1) L B-Type Natriuretic Peptide 429 pg/mL (0-100) H Whole Blood Glucose 265 MG/DL (70-110) #H 185 MG/DL (70-110) H Bedside Glucose Comment Notified Nurse Notified Nurse Medications Current Medications Nitroglycerin 0.4 mg Q5M PRN SL; Start 05/26/25 at 19:30 Aspirin 325 mg ONCE ONCE PO Last administered on 05/26/25at 19:29; Start 05/26/25 at 19:30; Stop 05/26/25 at 19:31; Status DC Heparin Sodium (Porcine) *calculation based on ACTUAL B... AD PRN IV Last administered on 05/26/25at 21:07; Start 05/26/25 at 22:00; Stop 06/25/25 at 21:59 Heparin Sodium/ Dextrose 250 ml @ 0 mls/hr Q6H IV Last administered on 05/28/25at 06:31; Start 05/26/25 at 22:00; Stop 06/25/25 at 21:59 Nitroglycerin/ Dextrose 0 ml @ 0 mls/hr AD PRN IV Last administered on 05/26/25at 21:37; Start 05/26/25 at 21:00; Stop 06/25/25 at 20:59 Insulin Human Regular INSULIN SLIDING SCAL... ACHS SQ; Start 05/27/25 at 07:30; Stop 05/27/25 at 00:55; Status DC Acetaminophen 650 mg Q6H PRN PO Last administered on 05/30/25at 11:55; Start 05/26/25 at 21:30; Stop 06/25/25 at 21:29 Ondansetron HCl 4 mg Q6H PRN IVP; Start 05/26/25 at 21:30; Stop 06/25/25 at 21:29 Aspirin 81 mg DAILY PO Last administered on 05/30/25at 08:45; Start 05/27/25 at 0 9:00; Stop 06/26/25 at 08:59 Atorvastatin Calcium 20 mg HS PO Last administered on 05/29/25at 20:22; Start 05/27/25 at 21:00; Stop 06/26/25 at 20:59 Carvedilol 6.25 mg BID PO Last administered on 05/30/25at 08:44; Start 05/27/25 at 09:00; Stop 06/26/25 at 08:59 Clopidogrel Bisulfate 75 mg DAILY PO Last administered on 05/27/25at 08:05; Start 05/27/25 at 09:00; Stop 05/27/25 at 10:00; Status DC Loratadine 10 mg DAILY PRN PO; Start 05/27/25 at 00:00; Stop 05/27/25 at 22:34; Status DC Nitroglycerin 0.4 mg AD SL; Start 05/27/25 at 00:00; Stop 05/27/25 at 00:08; Status DC Spironolactone 25 mg DAILY PO Last administered on 05/30/25at 08:45; Start 05/27/25 at 09:00; Stop 06/26/25 at 08:59 Sulfasalazine 500 mg BID PO Last administered on 05/30/25at 08:44; Start 05/27/25 at 09:00; Stop 06/06/25 at 08:59 Home Med BID PO; Start 05/27/25 at 09:00; Stop 06/26/25 at 08:59 Hydralazine HCl 50 mg BID PO; Start 05/27/25 at 09:00; Stop 05/27/25 at 10:05; Status DC Insulin Glargine 30 units HS SQ Last administered on 05/29/25at 20:27; Start 05/27/25 at 21:00; Stop 06/26/25 at 20:59 Home Med DAILY PO; Start 05/27/25 at 09:00; Stop 06/26/25 at 08:59 Home Med DAILY PO; Start 05/27/25 at 09:00; Stop 06/26/25 at 08:59 Nifedipine 60 mg DAILY PO Last administered on 05/30/25at 08:44; Start 05/27/25 at 09:00; Stop 06/26/25 at 08:59 Pyridoxine HCl 100 mg DAILY PO Last administered on 05/30/25at 08:45; Start 05/27/25 at 09:00; Stop 06/26/25 at 08:59 Home Med DAILY PO; Start 05/27/25 at 09:00; Stop 06/26/25 at 08:59 Insulin Human Regular INSULIN SLIDING SCAL... ACHS SQ Last administered on 05/30/25at 17:09; Start 05/27/25 at 07:30; Stop 06/26/25 at 07:29 Dextrose 50 ml AD PRN IV; Start 05/27/25 at 00:30; Stop 05/28/25 at 19:37; Status DC Glucagon 1 mg AD PRN IM; Start 05/27/25 at 00:30; Stop 05/28/25 at 19:37; Status DC Potassium Chloride 100 ml @ 100 mls/hr AD PRN IV; Start 05/27/25 at 00:30; Stop 06/26/25 at 00:29 Potassium Chloride 20 meq AD PRN PO; Start 05/27/25 at 00:30; Stop 06/26/25 at 00:29 Potassium Chloride 20 meq AD PRN PO Last administered on 05/28/25at 07:51; Start 05/27/25 at 00:30; Stop 06/26/25 at 00:29 Potassium Chloride 100 ml @ 50 mls/hr AD PRN IV; Start 05/27/25 at 00:30; Stop 05/27/25 at 06:59; Status DC Magnesium Sulfate 50 ml @ 0 mls/hr PROTOCOL PRN IV Last administered on 05/28/25at 07:51; Start 05/27/25 at 00:30; Stop 06/26/25 at 00:29 Pantoprazole Sodium 40 mg DAILY PO Last administered on 05/30/25at 08:44; Start 05/27/25 at 09:00; Stop 06/26/25 at 08:59 Ticagrelor 180 mg ONCE ONCE PO Last administered on 05/27/25at 11:12; Start 05/27/25 at 10:00; Stop 05/27/25 at 10:06; Status DC Ticagrelor 90 mg BID PO Last administered on 05/30/25at 08:44; Start 05/27/25 at 21:00; Stop 06/26/25 at 20:59 Wound Care/ Dressing Products Left buttock ulcer... BID TP Last administered on 05/30/25at 08:48; Start 05/27/25 at 21:00; Stop 06/26/25 at 20:59 Nystatin 1 APPLICATION BID TP Last administered on 05/30/25at 08:48; Start 05/27/25 at 21:00; Stop 06/26/25 at 20:59 Loratadine 10 mg DAILY PRN PO Last administered on 05/27/25at 22:48; Start 05/27/25 at 22:30; Stop 06/26/25 at 22:29 Loratadine 10 mg ONCE ONCE PO Last administered on 05/27/25at 23:00; Start 05/27/25 at 23:00; Stop 05/27/25 at 23:23; Status DC Lidocaine HCl 20 ml STK-MED ONCE .ROUTE; Start 05/28/25 at 15:10; Stop 05/28/25 at 15:10; Status DC Iohexol 35,000 mg STK-MED ONCE IV; Start 05/28/25 at 15:10; Stop 05/28/25 at 15:10; Status DC Verapamil HCl 5 mg STK-MED ONCE .ROUTE; Start 05/28/25 at 15:10; Stop 05/28/25 at 15:10; Status DC Heparin Sodium (Porcine) 10,000 unit STK-MED ONCE .ROUTE; Start 05/28/25 at 15:10; Stop 05/28/25 at 15:10; Status DC Heparin Sodium/ Sodium Chloride 1,000 ml @ As Directed STK-MED ONCE IV; Start 05/28/25 at 15:10; Stop 05/28/25 at 15:11; Status DC Nitroglycerin 50 mg STK-MED ONCE .ROUTE; Start 05/28/25 at 15:11; Stop 05/28/25 at 15:11; Status DC Fentanyl Citrate 100 mcg STK-MED ONCE .ROUTE; Start 05/28/25 at 16:39; Stop 05/28/25 at 16:39; Status DC Midazolam HCl 2 mg STK-MED ONCE .ROUTE; Start 05/28/25 at 16:40; Stop 05/28/25 at 16:40; Status DC Midazolam HCl 2 mg STK-MED ONCE .ROUTE; Start 05/28/25 at 16:49; Stop 05/28/25 at 16:50; Status DC Fentanyl Citrate 100 mcg STK-MED ONCE .ROUTE; Start 05/28/25 at 17:17; Stop 05/28/25 at 17:18; Status DC Labetalol HCl 20 mg STK-MED ONCE IV; Start 05/28/25 at 17:20; Stop 05/28/25 at 17:20; Status DC Heparin Sodium/ Sodium Chloride 500 ml @ As Directed STK-MED ONCE IV; Start 05/28/25 at 17:40; Stop 05/28/25 at 17:40; Status DC Nicardipine HCl 25 mg STK-MED ONCE IV; Start 05/28/25 at 17:44; Stop 05/28/25 at 17:44; Status DC Eptifibatide 20 mg STK-MED ONCE IVP; Start 05/28/25 at 17:47; Stop 05/28/25 at 17:47; Status DC Iohexol 35,000 mg STK-MED ONCE IV; Start 05/28/25 at 17:54; Stop 05/28/25 at 17:55; Status DC Eptifibatide 100 ml @ As Directed STK-MED ONCE IV; Start 05/28/25 at 17:58; Stop 05/28/25 at 17:58; Status DC Eptifibatide 20 mg STK-MED ONCE IVP; Start 05/28/25 at 17:58; Stop 05/28/25 at 17:58; Status DC Iohexol 75 ml STK-MED ONCE IV; Start 05/28/25 at 18:26; Stop 05/28/25 at 18:26; Status DC Midazolam HCl 2 mg STK-MED ONCE .ROUTE; Start 05/28/25 at 18:38; Stop 05/28/25 at 18:38; Status DC Iohexol 50 ml STK-MED ONCE IV; Start 05/28/25 at 19:10; Stop 05/28/25 at 19:10; Status DC Sodium Chloride 1,000 ml @ 150 mls/hr Q6H40M IV Last administered on 05/28/25at 21:11; Start 05/28/25 at 20:00; Stop 05/28/25 at 23:59; Status DC Dextrose 50 ml AD PRN IV; Start 05/28/25 at 20:00; Stop 06/27/25 at 19:59 Glucagon 1 mg AD PRN IM; Start 05/28/25 at 20:00; Stop 06/27/25 at 19:59 Ondansetron HCl 4 mg STK-MED ONCE .ROUTE; Start 05/28/25 at 19:43; Stop 05/28/25 at 19:43; Status DC Eptifibatide 100 ml @ 0 mls/hr PROTOCOL IV Last administered on 05/29/25at 01:42; Start 05/29/25 at 01:30; Stop 06/28/25 at 01:29 Furosemide 20 mg Q12H IV Last administered on 05/30/25at 11:11; Start 05/30/25 at 11:00; Stop 05/31/25 at 11:01 Assessment/Plan ASSESSMENT: THIS IS A 69 YR OLD WOMAN WITH HISTORY OF CAD WIHT HX NON STEMI W PEAK TROPONIN 5 S/P C WITH SUCCESSFUL PTCA/STENT LCX FAILED RCA REVASCULARIZATION WITH DISTAL/PROX RCA PERFORATION, V-FIB ARREST S/P DEFIB X 3 ECHO WITH TRIVIAL PERICARDIAL EFFUSION W/O TAMPONADE RESOLUTION OF PERICARDIAL EFFUSION EF > 55% DM II ON BIG MACHINE CONSULTANT INSULIN CAD WITH HISTORY OF CORONARY STENTS NON STEMI ON 10/29/2023 RCA ANGIOPLASTY ON 11/02/2023 AT [facility] [place], UNSUCCESSFUL PTCA HYPERTENSIVE HEART AND RENAL DISEASE WITH CKD 2 GERD LUMBAR STENOSIS WITH NEUROGENIC CLAUDICATION OTHER SPECIFIED SPONDYLOPATHY, LUMBAR REGION ATHEROSCLEROSIS OF LEGS BILATERAL RHEUMATOID ARTHRITIS HYPERLIPIDEMIA MIXED OSTEOPOROSIS STATIN MYOPATHY SHE PRESENTED WITH A NONSTEMI WITH PEAK TROPONIN 7,000 2D echocardiogram showed LVEF 55-60%, stage I diastolic dysfunction no wall motion [id number]/3/2025 S/P C patent SERRANO-LAD, SVG-D1/OM jump graft with 80-85% proximal and mid stenosis with significant mid segment burden -05/28/2025 S/P IVUS guided PTCA/PCI of the proximal (4.5 x 23 mm JANY) and mid ( x 33 mm JANY) of the SVG to D1/OM jump graft Complicated by InStent thrombosis S/P Aspiration Thrombectomy of the SVG to D1/OM jump graft 05/28/2025 Mild ischemic cardiomyopathy with an LVEF of 40-45% by 2D echocardiogram 05/28/2025: Acute systolic congestive heart failure: PLAN: CARDIOLOGY DIURESING WITH IV LASIX, CONTINUES ON COREG AND CONSIDERING ENTRESTO WITH HER REPEAT 2 D ECHO WITH EF DOWN TO 40-45% CONT ASA PLAVIX STATIN THERAPY BLOOD PRESSURE CONTROLLED MONITOR GLUCOSE AND ADJUST INSULIN NEEDED SUPPLEMENT ELECTROLYTES SOME HYPOGLYCEMIA AT HS - ADD BEDTIME SNACK CONT BASAL INSULIN AND SLIDING SCALE UPDATED FAMILY AT BEDSIDE BARBARA LARA MD May 30, 2025 18:18
[2025-05-31] VITALS (10 sets, daily range): BP systolic 98–138; BP diastolic 47–71; PULSE 73–97; RESP 17–18; TEMP 98.2–98.9; O2SAT 96–98
--- NOTE | 2025-05-31 03:29 | HMCIMG ---
EXAM: CR CHEST, 1 VIEW CLINICAL HISTORY: Asses for CHF post [place] COMPARISON: X-ray chest dated 05/26/2025. TECHNIQUE: Single frontal radiograph of the chest was obtained. FINDINGS: Lines/Devices: None. Lungs: Left lower lobar thick atelectatic bands. Both pulmonary kira are mildly enlarged. No consolidation or ground-glass opacities are observed. There is no pleural effusion. There is no pneumothorax. Mediastinum and cardiovascular structures: Sternotomy sutures are noted with multiple small radiodense clips related to the left cardiac border. Mildly elevated left diaphragmatic cupola. The cardiac silhouette is not enlarged. The central airway and mediastinal contours are unremarkable. Bones and soft tissues: Unremarkable IMPRESSION: 1. Mildly enlarged pulmonary kira ,mostly congested pulmonary arteries. 2. Left lower lobar thick atelectatic bands. 3. Sternotomy sutures with multiple small radiodense clips related to the left cardiac border. 4. Mildly elevated left diaphragmatic copula. 5. As compared to previous x-ray chest dated 05/26/2025 the current study reveals no time interval changes as regards the left lower lobe thick atelectatic bands, newly developed mildly enlarged pulmonary kiar, mostly representing pulmonary congestion however CT angiography is recommended ,still noted sternotomy sutures with multiple small radiodense clips related to the left cardiac border,still noted mildly elevated left diaphragmatic cupola. /[place]
[2025-05-31 03:54] LABS: NUCLEATED RED BLOOD CELLS 0.0 % (0.0-0.19); PLATELET COUNT (AUTO) 193.0 K/uL (130-400); RED BLOOD CELL COUNT(AUTO) 3.33 MIL/uL (4.00-5.50); RED CELL DISTRIBUTION WIDTH 13.1 % (11.0-15.5); WHITE BLOOD COUNT (AUTO) 6.8 K/uL (4.8-10.8)
[2025-05-31 04:16] LABS: CREATININE 1.4 mg/dL (0.5-1.0); GLOMERULAR FILTR. RATE CALC 41.0 mL/min (>90); GLUCOSE,RANDOM 130.0 mg/dL (70-105); SODIUM SERUM 138.0 mmol/L (136-145); UREA NITROGEN, BLOOD 27.0 mg/dL (7-18)
[2025-05-31] MEDS: NITROGLYCERIN 0.4 MG SL TAB SL PRN (09:47)
--- NOTE | 2025-05-31 10:24 | PN ---
[facility] CARDIOLOGY PROGRESS NOTE Date Patient Seen: May 31, 2025 Time of Visit: 10:19 Interval History: This is a 69 y/o female with a past medical history of rheumatoid arthritis, HTN, HLP with statin intolerance at elevated doses, DM2, CAD s/p 3V CABG (SERRANO- LAD, sequential SVG-D1-OM2), ACS-NSTEMI s/p LHC/coronary angiogram done on 11/18/2024 which identified 3V CAD with 3/3 grafts patent, but 50% stenosis in the ostium of the SVG-D1-OM2, s/p PCI with PTCA and JANY placement (MOF 3.0x18 mm) in the proximal LCx, unsuccessful PCI of the RCA ACCOUNTS RECEIVABLE COORDINATOR complicated by ACQUISITION CONSULTANT perforation with resulting VF cardiac arrest s/p ACLS resulting in ROSC on 11/18/2024, low normal LV systolic function (LVEF: 50-55% by echo done 01/16/2025), and intolerance to ACEI/ARB therapy (can not recall intolerance) who has ruled in for a non ST segment elevation [place] with peak troponin of 7172. She underwent a cardiac catheterization on 05/28/2025 that demonstrated a patent SERRANO-LAD, SVG-D1/OM sequential graft with 80-85% proximal and mid stenosis with significant mid segment burden. She underwent IVUS guided PTCA/PCI of the proximal (4.5 x 23 mm JANY) and mid ( x 33 mm JANY) of the SVG to D1/OM sequential graft, complicated by immediate in-stent thrombosis, treated with aspiration thrombectomy. She has been on intensified dual antiplatelet therapy with Brilinta and aspirin. She developed symptoms of acute systolic congestive heart failure with orthopnea and PND overnight 05/30/2025. Her chest x-ray demonstrated some mild pulmonary vascular congestion changes and her BNP was elevated at 429 with a baseline of 108. She was treated with furosemide 20 mg IV x 2 doses, without any recurrent orthopnea or PND. BUN and creatinine this morning are 27 and 1.4 respectively. This morning, she complained of recurrent left-sided chest discomfort described as pressure 8/10 in intensity radiating to the left arm. Blood pressure was 138 systolic, there was no associated nausea, vomiting or diaphoresis or dyspnea. She was treated with sublingual nitroglycerin x1 and resolution of her chest pain. An EKG at this time (10:07 a.m.) demonstrated sinus rhythm with subtle half a mm horizontal ST depressions in V3 through V5. Physical Examination: GENERAL: No acute distress. HEAD: Normal with no signs of head trauma. EYES: PERRLA, EOMI, conjunctiva and sclera normal. NECK: Supple without JVD. There is no tenderness, lymphadenopathy, or masses. No thyromegaly. Normal carotid upstrokes without bruits. LUNGS: Bibasilar rales right greater than left HEART: Normal rate and rhythm. Normal S1 and S2 without murmurs, gallop or rub. VASC: Peripheral pulses +2 bilaterally. EXT: No clubbing, cyanosis or edema. NEURO: Awake, alert, and oriented x3. No focal neurological deficits noted. Laboratory: Hematology Labs: Test 05/31/25 03:22 Range/Units White Blood Count 6.8 4.8-10.8 K/uL Red Blood Count 3.33 L 4.00-5.50 MIL/uL Hemoglobin 10.4 L 12.0-16.0 g/dL Hematocrit 31.3 L 36-48 % Mean Corpuscular Volume 94.0 79-99 fL Mean Corpuscular Hemoglobin 31.2 27.0-33.0 pg Mean Corpuscular Hemoglobin Concent 33.2 32.0-36.0 g/dL Red Cell Distribution Width 13.1 11.0-15.5 % Platelet Count 193 130-400 K/uL Mean Platelet Volume 10.3 7.5-10.5 fL Nucleated Red Blood Cells 0.0 0.0-0.19 % Chemistry Labs: Test 05/31/25 06:42 05/31/25 03:22 05/30/25 16:13 05/30/25 09:59 Range/Units Whole Blood Glucose 133 H 70-110 MG/DL Sodium Level 138 136-145 mmol/L Potassium Level 3.7 3.5-5.1 mmol/L Chloride Level 101 101-111 mmol/L Carbon Dioxide Level 28 21-32 mmol/L Blood Urea Nitrogen 27 H 7-18 mg/dL Creatinine 1.4 H 0.5-1.0 mg/dL Glomerular Filtration Rate Calc 41 >90 mL/min Random Glucose 130 #H 70-105 mg/dL Total Calcium 8.6 8.5-10.1 mg/dL Magnesium Level 2.00 1.80-2.40 mg/dL Bedside Glucose Comment Notified Nurse B-Type Natriuretic Peptide 429 H 0-100 pg/mL Diagnostics / Radiology: 2D echocardiogram 05/28/2025: Limited echocardiogram to assess wall motion, systolic/diastolic function status post PCI. Mild concentric hypertrophy of the left ventricle is noted. There is paradoxical septal wall motion noted. The basal/mid/apical inferior wall is hypokinetic. The apical inferior lateral and apical anterior lateral goodwin are severely hypokinetic. The basal/mid inferior lateral and anterior lateral goodwin are normal in function. The anterior wall is normal in function. Left ventricle systolic function is moderately depressed, estimated LVEF 40 to 45%. Stage I diastolic dysfunction. Trace circumferential pericardial effusion. Impression and Plan: Non ST segment elevation [place] with peak troponin of 7172: Coronary artery disease status post prior coronary artery bypass with cardiac catheterization on 05/28/2025 demonstrating a patent SERRANO-LAD, SVG-D1/OM sequential graft with 80-85% proximal and mid stenosis with significant mid segment burden Status post IVUS guided PTCA/PCI of the proximal (4.5 x 23 mm JANY) and mid ( x 33 mm JANY) of the SVG to D1/OM sequential graft, complicated by in-stent thrombosis, treated with aspiration thrombectomy of the SVG to D1/OM: -continue dual antiplatelet therapy Brilinta 90 mg p.o. b.i.d., [id number] mg p.o. daily, atorvastatin 20 mg p.o. q.h.s. and carvedilol 6.25 mg p.o. b.i.d. -the patient had recurrent chest discomfort this morning with subtle half a mm of horizontal ST depressions V3 through V5 on EKG, chest pain resolved with s ublingual nitroglycerin x1 -begin topical nitrates with nitro patch 1inch Q 8 hours and monitor for recurrent chest pain -if she has recurrent chest discomfort, Dr. Multani has recommended considering a repeat 2nd look heart catheterization +/- PCI of the saphenous vein graft to the OM Mild ischemic cardiomyopathy with an LVEF of 40-45% by 2D echocardiogram 05/28/2025: -continue carvedilol 6.25 mg p.o. b.i.d. -the patient has documented allergy to dapaglaflozin, lisinopril, losartan and valsartan but upon further questioning, she does not recall any true allergy other than perhaps just side effects (such as upset stomach, some anxiety or other minor symptoms) with medications in the past -we will consider low-dose Entresto to her medical therapy, defer to Dr. Satnam Multani -transition to furosemide 20 mg p.o. daily Acute systolic congestive heart failure: -as outlined above -Transition to furosemide 20 mg p.o. daily - consider low-dose Entresto, defer to Dr. Satnam multani as she has had some sensitivities to different drug therapies Comorbidities: Hypertension Hyperlipidemia with statin intolerance at higher doses, continue low-dose atorvastatin 20 mg p.o. 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 Coronary artery disease status post 3V CABG (SERRANO-LAD, sequential SVG-D1-OM2), ACS-NSTEMI s/p LHC/coronary angiogram done on 11/18/2024 which identified 3V CAD with 3/3 grafts patent, but 50% stenosis in the ostium of the SVG-D1-OM2, s/p PCI with PTCA and JANY placement (MOF 3.0x18 mm) in the proximal LCx, unsuccessful PCI of the RCA ACCOUNTS RECEIVABLE COORDINATOR complicated by ACQUISITION CONSULTANT perforation with resulting VF cardiac arrest s/p ACLS resulting in ROSC on 11/18/2024 Prior LVEF of 50-55% by echo done 01/16/2025 Intolerance to ACEI/ARB therapy (can not recall intolerance) but no true allergy reported Rheumatoid arthritis PHYSICIAN ATTESTATION OF PHYSICIAN PATTERN SCRATCHER DOCUMENTATION: I attest that I was physically present for the conrad portions of the service and evaluated the patient with the Physician Retirement Manager, and I reviewed and discussed the case with the Physician Retirement Manager and made modifications to the Physician Retirement Manager's findings and plans of care as documented above ANNABELLE CADET May 31, 2025 10:24 JACQUES FAN MD May 31, 2025 15:15
--- NOTE | 2025-05-31 10:48 | EKG ---
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
[2025-05-31] MEDS: NITROGLYCERIN 1GM OINT 1 INCH/1GM TD SCH (11:13)
--- NOTE | 2025-05-31 14:21 | PN ---
Subjective Review of Systems PROGRESS NOTE Date of Visit: May 31, 2025 Time of Visit: 14:10 Events since last encounter THIS AM WAS HAVING CP RADIATING TO LEFT ARM AND TREATED WITH NTG SL AND RESOLVED Subjective REPORTS BREATHING IS BETTER General: No Fever, No Chills, No Night Sweats, No Fatigue, No Malaise, No Appetite, No Other HEENT: No Head Aches, No Visual Changes, No Eye Pain, No Ear Pain, No Dysphasia, No Sinus Congestion, No Post Nasal Drip, No Sore Throat, No Other Pulmonary: No Dyspnea, No Cough, No Pleuritic Chest Pain, No Other Cardiovascular: Chest Pain; No: Palpitations, Orthopnea, Paroxysmal Noc. Dyspnea, Edema, Lt Headedness, Other Gastrointestinal: No: Nausea, Vomiting, Abdominal Pain, Diarrhea, Constipation, Melena, Hematochezia, Other Genitourinary: No Dysuria, No Frequency, No Incontinence, No Hematuria, No Retention, No Other Musculoskeletal: No: other, neck pain, shoulder pain, arm pain, back pain, hand pain, leg pain, foot pain Skin: No Urticaria, No Rash, No Other Neurological: No: Weakness, Numbness, Incoordination, Change in speech, Confusion, Seizures, Other Objective Vitals and I/O Vital Sign (Last 24 Hours) 05/31/25 05/31/25 10:20 11:57 Temp 98.2 Pulse 91 Resp 18 B/P (MAP) 124/64 Pulse Ox 97 O2 Delivery Room Air O2 Flow Rate 0 FiO2 21 Intake & Output (last 24hrs) 05/30/25 05/30/25 05/31/25 15:00 23:00 07:00 Intake Total 480 ml 240 ml Output Total 600 ml 1200 ml Balance 480 ml -360 ml -1200 ml General: Alert, Oriented X3, Cooperative, No acute distress HEENT: Atraumatic, PERRLA, EOMI Neck: Supple, No JVD Lungs: Clear to auscultation, Normal air movement, NL respiratory effort Heart: Regular rate, Regular rhythm Abdomen: Normal bowel sounds, Soft, No tenderness, No masses Extremities: No clubbing, No cyanosis, No edema, Normal pulses Skin: No rashes, No breakdown Neuro: Normal speech, Normal tone Psych/Mental Status: Mental status NL, Mood NL Results RADIOLOGY: [] EKG: [] Laboratory Tests Test 05/30/25 16:13 05/30/25 19:42 05/31/25 03:22 05/31/25 06:42 Whole Blood Glucose 185 MG/DL (70-110) H 197 MG/DL (70-110) H 133 MG/DL (70-110) H Bedside Glucose Comment Notified Nurse White Blood Count 6.8 K/uL (4.8-10.8) Red Blood Count 3.33 MIL/uL (4.00-5.50) L Hemoglobin 10.4 g/dL (12.0-16.0) L Hematocrit 31.3 % (36-48) L Mean Corpuscular Volume 94.0 fL (79-99) Mean Corpuscular Hemoglobin 31.2 pg (27.0-33.0) Mean Corpuscular Hemoglobin Concent 33.2 g/dL (32.0-36.0) Red Cell Distribution Width 13.1 % (11.0-15.5) Platelet Count 193 K/uL (130-400) Mean Platelet Volume 10.3 fL (7.5-10.5) Nucleated Red Blood Cells 0.0 % (0.0-0.19) Sodium Level 138 mmol/L (136-145) Potassium Level 3.7 mmol/L (3.5-5.1) Chloride Level 101 mmol/L (101-111) Carbon Dioxide Level 28 mmol/L (21-32) Blood Urea Nitrogen 27 mg/dL (7-18) H Creatinine 1.4 mg/dL (0.5-1.0) H Glomerular Filtration Rate Calc 41 mL/min (>90) Random Glucose 130 mg/dL (70-105) #H Total Calcium 8.6 mg/dL (8.5-10.1) Magnesium Level 2.00 mg/dL (1.80-2.40) Test 05/31/25 10:55 05/31/25 11:02 Troponin I High Sensitivity 36173 ng/L (4-50) *H Whole Blood Glucose 319 MG/DL (70-110) #H Medications Current Medications Nitroglycerin 0.4 mg Q5M PRN SL Last administered on 05/31/25at 09:47; Start 05/26/25 at 19:30 Aspirin 325 mg ONCE ONCE PO Last administered on 05/26/25at 19:29; Start 05/26/25 at 19:30; Stop 05/26/25 at 19:31; Status DC Heparin Sodium (Porcine) *calculation based on ACTUAL B... AD PRN IV Last administered on 05/26/25at 21:07; Start 05/26/25 at 22:00; Stop 05/31/25 at 10:19; Status DC Heparin Sodium/ Dextrose 250 ml @ 0 mls/hr Q6H IV Last administered on 05/28/25at 06:31; Start 05/26/25 at 22:00; Stop 05/31/25 at 10:19; Status DC Nitroglycerin/ Dextrose 0 ml @ 0 mls/hr AD PRN IV Last administered on 05/26/25at 21:37; Start 05/26/25 at 21:00; Stop 06/25/25 at 20:59 Insulin Human Regular INSULIN SLIDING SCAL... ACHS SQ; Start 05/27/25 at 07:30; Stop 05/27/25 at 00:55; Status DC Acetaminophen 650 mg Q6H PRN PO Last administered on 05/31/25at 09:57; Start at 21:30; Stop 06/25/25 at 21:29 Ondansetron HCl 4 mg Q6H PRN IVP; Start 05/26/25 at 21:30; Stop 06/25/25 at 21:29 Aspirin 81 mg DAILY PO Last administered on 05/31/25at 09:36; Start 05/27/25 at 09:00; Stop 06/26/25 at 08:59 Atorvastatin Calcium 20 mg HS PO Last administered on 05/30/25at 20:29; Start 05/27/25 at 21:00; Stop 06/26/25 at 20:59 Carvedilol 6.25 mg BID PO Last administered on 05/31/25at 09:36; Start 05/27/25 at 09:00; Stop 06/26/25 at 08:59 Clopidogrel Bisulfate 75 mg DAILY PO Last administered on 05/27/25at 08:05; Start 05/27/25 at 09:00; Stop 05/27/25 at 10:00; Status DC Loratadine 10 mg DAILY PRN PO; Start 05/27/25 at 00:00; Stop 05/27/25 at 22:34; Status DC Nitroglycerin 0.4 mg AD SL; Start 05/27/25 at 00:00; Stop 05/27/25 at 00:08; Status DC Spironolactone 25 mg DAILY PO Last administered on 05/31/25at 09:35; Start 05/27/25 at 09:00; Stop 06/26/25 at 08:59 Sulfasalazine 500 mg BID PO Last administered on 05/31/25at 09:36; Start 05/27/25 at 09:00; Stop 06/06/25 at 08:59 Home Med BID PO; Start 05/27/25 at 09:00; Stop 05/31/25 at 13:37; Status DC Hydralazine HCl 50 mg BID PO; Start 05/27/25 at 09:00; Stop 05/27/25 at 10:05; Status DC Insulin Glargine 30 units HS SQ Last administered on 05/30/25at 20:34; Start 05/27/25 at 21:00; Stop 06/26/25 at 20:59 Home Med DAILY PO; Start 05/27/25 at 09:00; Stop 06/26/25 at 08:59 Home Med (Magnesium CITRATE (Magnesi... DAILY PO; Start 05/27/25 at 09:00; Stop 06/26/25 at 08:59 Nifedipine 60 mg DAILY PO Last administered on 05/31/25at 09:35; Start 05/27/25 at 09:00; Stop 06/26/25 at 08:59 Pyridoxine HCl 100 mg DAILY PO Last administered on 05/31/25at 09:35; Start 05/27/25 at 09:00; Stop 06/26/25 at 08:59 Home Med DAILY PO; Start 05/27/25 at 09:00; Stop 06/26/25 at 08:59 Insulin Human Regular INSULIN SLIDING SCAL... ACHS SQ Last administered on 05/31/25at 12:50; Start 05/27/25 at 07:30; Stop 06/26/25 at 07:29 Dextrose 50 ml AD PRN IV; Start 05/27/25 at 00:30; Stop 05/28/25 at 19:37; Status DC Glucagon 1 mg AD PRN IM; Start 05/27/25 at 00:30; Stop 05/28/25 at 19:37; S tatus DC Potassium Chloride 100 ml @ 100 mls/hr AD PRN IV; Start 05/27/25 at 00:30; Stop 06/26/25 at 00:29 Potassium Chloride 20 meq AD PRN PO; Start 05/27/25 at 00:30; Stop 06/26/25 at 00:29 Potassium Chloride 20 meq AD PRN PO Last administered on 05/31/25at 09:37; Start 05/27/25 at 00:30; Stop 06/26/25 at 00:29 Potassium Chloride 100 ml @ 50 mls/hr AD PRN IV; Start 05/27/25 at 00:30; Stop 05/27/25 at 06:59; Status DC Magnesium Sulfate 50 ml @ 0 mls/hr PROTOCOL PRN IV Last administered on 05/28/25at 07:51; Start 05/27/25 at 00:30; Stop 06/26/25 at 00:29 Pantoprazole Sodium 40 mg DAILY PO Last administered on 05/31/25at 09:35; Start 05/27/25 at 09:00; Stop 06/26/25 at 08:59 Ticagrelor 180 mg ONCE ONCE PO Last administered on 05/27/25at 11:12; Start 05/27/25 at 10:00; Stop 05/27/25 at 10:06; Status DC Ticagrelor 90 mg BID PO Last administered on 05/31/25at 09:35; Start 05/27/25 at 21:00; Stop 06/26/25 at 20:59 Wound Care/ Dressing Products Left buttock ulcer... BID TP Last administered on 05/31/25at 09:37; Start 05/27/25 at 21:00; Stop 06/26/25 at 20:59 Nystatin 1 APPLICATION BID TP Last administered on 05/31/25at 09:37; Start 05/27/25 at 21:00; Stop 06/26/25 at 20:59 Loratadine 10 mg DAILY PRN PO Last administered on 05/27/25at 22:48; Start 05/27/25 at 22:30; Stop 06/26/25 at 22:29 Loratadine 10 mg ONCE ONCE PO Last administered on 05/27/25at 23:00; Start 05/27/25 at 23:00; Stop 05/27/25 at 23:23; Status DC Lidocaine HCl 20 ml STK-MED ONCE .ROUTE; Start 05/28/25 at 15:10; Stop 05/28/25 at 15:10; Status DC Iohexol 35,000 mg STK-MED ONCE IV; Start 05/28/25 at 15:10; Stop 05/28/25 at 15:10; Status DC Verapamil HCl 5 mg STK-MED ONCE .ROUTE; Start 05/28/25 at 15:10; Stop 05/28/25 at 15:10; Status DC Heparin Sodium (Porcine) 10,000 unit STK-MED ONCE .ROUTE; Start 05/28/25 at 15:10; Stop 05/28/25 at 15:10; Status DC Heparin Sodium/ Sodium Chloride 1,000 ml @ As Directed STK-MED ONCE IV; Start 05/28/25 at 15:10; Stop 05/28/25 at 15:11; Status DC Nitroglycerin 50 mg STK-MED ONCE .ROUTE; Start 05/28/25 at 15:11; Stop 05/28/25 at 15:11; Status DC Fentanyl Citrate 100 mcg STK-MED ONCE .ROUTE; Start 05/28/25 at 16:39; Stop 05/28/25 at 16:39; Status DC Midazolam HCl 2 mg STK-MED ONCE .ROUTE; Start 05/28/25 at 16:40; Stop 05/28/25 at 16:40; Status DC Midazolam HCl 2 mg STK-MED ONCE .ROUTE; Start 05/28/25 at 16:49; Stop 05/28/25 at 16:50; Status DC Fentanyl Citrate 100 mcg STK-MED ONCE .ROUTE; Start 05/28/25 at 17:17; Stop 05/28/25 at 17:18; Status DC Labetalol HCl 20 mg STK-MED ONCE IV; Start 05/28/25 at 17:20; Stop 05/28/25 at 17:20; Status DC Heparin Sodium/ Sodium Chloride 500 ml @ As Directed STK-MED ONCE IV; Start 05/28/25 at 17:40; Stop 05/28/25 at 17:40; Status DC Nicardipine HCl 25 mg STK-MED ONCE IV; Start 05/28/25 at 17:44; Stop 05/28/25 at 17:44; Status DC Eptifibatide 20 mg STK-MED ONCE IVP; Start 05/28/25 at 17:47; Stop 05/28/25 at 17:47; Status DC Iohexol 35,000 mg STK-MED ONCE IV; Start 05/28/25 at 17:54; Stop 05/28/25 at 17:55; Status DC Eptifibatide 100 ml @ As Directed STK-MED ONCE IV; Start 05/28/25 at 17:58; Stop 05/28/25 at 17:58; Status DC Eptifibatide 20 mg STK-MED ONCE IVP; Start 05/28/25 at 17:58; Stop 05/28/25 at 17:58; Status DC Iohexol 75 ml STK-MED ONCE IV; Start 05/28/25 at 18:26; Stop 05/28/25 at 18:26; Status DC Midazolam HCl 2 mg STK-MED ONCE .ROUTE; Start 05/28/25 at 18:38; Stop 05/28/25 at 18:38; Status DC Iohexol 50 ml STK-MED ONCE IV; Start 05/28/25 at 19:10; Stop 05/28/25 at 19:10; Status DC Sodium Chloride 1,000 ml @ 150 mls/hr Q6H40M IV Last administered on 05/28/25at 21:11; Start 05/28/25 at 20:00; Stop 05/28/25 at 23:59; Status DC Dextrose 50 ml AD PRN IV; Start 05/28/25 at 20:00; Stop 06/27/25 at 19:59 Glucagon 1 mg AD PRN IM; Start 05/28/25 at 20:00; Stop 06/27/25 at 19:59 Ondansetron HCl 4 mg STK-MED ONCE .ROUTE; Start 05/28/25 at 19:43; Stop 05/28/25 at 19:43; Status DC Eptifibatide 100 ml @ 0 mls/hr PROTOCOL IV Last administered on 05/29/25at 01:42; Start 05/29/25 at 01:30; Stop 05/31/25 at 10:19; Status DC Furosemide 20 mg Q12H IV Last administered on 05/30/25at 23:33; Start 05/30/25 at 11:00; Stop 05/31/25 at 10:19; Status DC Nitroglycerin 1 inch Q8H TD Last administered on 05/31/25at 11:13; Start 05/31/25 at 10:30; Stop 06/30/25 at 10:29 Furosemide 20 mg DAILY PO; Start 06/01/25 at 09:00; Stop 07/01/25 at 08:59 Insulin Glargine 10 units ONCE ONCE SQ Last administered on 05/31/25at 13:36; Start 05/31/25 at 13:00; Stop 05/31/25 at 13:01; Status DC Home Med (Glimepiride 4MG TAB) BIDAC PO; Start 05/31/25 at 16:30; Stop 06/26/25 at 08:59 Assessment/Plan ASSESSMENT: THIS IS A 69 YR OLD WOMAN WITH HISTORY OF CAD WIHT HX NON STEMI W PEAK TROPONIN 12K - 10/2024 S/P C WITH SUCCESSFUL PTCA/STENT LCX FAILED RCA REVASCULARIZATION WITH DISTAL/PROX RCA PERFORATION, V-FIB ARREST S/P DEFIB X 3 ECHO WITH TRIVIAL PERICARDIAL EFFUSION W/O TAMPONADE RESOLUTION OF PERICARDIAL EFFUSION EF > 55% DM II ON PRISON INSULIN CAD WITH HISTORY OF CORONARY STENTS NON STEMI ON 10/29/2023 RCA ANGIOPLASTY ON 11/02/2023 AT [facility] [place], UNSUCCESSFUL PTCA HYPERTENSIVE HEART AND RENAL DISEASE WITH CKD 2 GERD LUMBAR STENOSIS WITH NEUROGENIC CLAUDICATION OTHER SPECIFIED SPONDYLOPATHY, LUMBAR REGION ATHEROSCLEROSIS OF LEGS BILATERAL RHEUMATOID ARTHRITIS HYPERLIPIDEMIA MIXED OSTEOPOROSIS STATIN MYOPATHY SHE PRESENTED WITH A NONSTEMI WITH PEAK TROPONIN 7,000 2D echocardiogram showed LVEF 55-60%, stage I diastolic dysfunction no wall motion [id number]/3/2025 S/P C patent SERRANO-LAD, SVG-D1/OM jump graft with 80-85% proximal and mid stenosis with significant mid segment burden -05/28/2025 S/P IVUS guided PTCA/PCI of the proximal (4.5 x 23 mm JANY) and mid ( x 33 mm JANY) of the SVG to D1/OM jump graft Complicated by InStent thrombosis S/P Aspiration Thrombectomy of the SVG to D1/OM jump graft 05/28/2025 REPEAT ECHO - Mild ischemic cardiomyopathy with an LVEF of 40-45% by 2D echocardiogram 05/28/2025 Acute systolic congestive heart failure RECURRENT ANGINAL SYMPTOMS ASSOCIATED WITH MINOR EKG CHANGES AND HI TROPONIN PLAN: CARDIOLOGY CONTINUES HER ON COREG, ATORVASTATIN, NIFEDIPINE, DAPT AND TRANSITIONING TO PO LASIX AND NITRATE PATCH CURRENTLY CHEST PAIN FREE WILL CONTINUE TO MONITOR SERIAL CARDIAC ENZYMES CONSIDERING ENTRESTO CARDIOLOGY CONSIDERING RE- EVALUATION WITH HEART CATH OF PCI SVG TO OM DEPENDING ON HER CLINICAL COURSE BLOOD PRESSURE CONTROLLED MONITOR GLUCOSE AND ADJUST INSULIN NEEDED SUPPLEMENT ELECTROLYTES UPDATED FAMILY AT BEDSIDE AND UPDATED AND ANSWERED ALL QUESTIONS BARBARA LARA MD May 31, 2025 14:21
--- NOTE | 2025-05-31 14:56 | EKG ---
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
[2025-06-01 04:00] VITALS: BP 132/62; PULSE 87; RESP 18; TEMP 98.2
[2025-06-01 04:07] LABS: CREATININE 1.2 mg/dL (0.5-1.0); GLOMERULAR FILTR. RATE CALC 49.0 mL/min (>90); GLUCOSE,RANDOM 142.0 mg/dL (70-105); SODIUM SERUM 135.0 mmol/L (136-145); UREA NITROGEN, BLOOD 25.0 mg/dL (7-18)
[2025-06-01 07:50] VITALS: O2SAT 97
[2025-06-01 07:54] VITALS: BP 130/62; PULSE 83; RESP 18; TEMP 98.9
--- NOTE | 2025-06-01 08:51 | PN ---
[facility] CARDIOLOGY PROGRESS NOTE Date Patient Seen: Jun 01, 2025 Time of Visit: 08:43 Interval History: [ No acute events overnight. Over the weekend the patient was endorsing chest pain, with the shortness of breath, troponins have slowly been trending up currently at , her EKG has a relatively unchanged patient's repeat 2D echocardiogram revealed a preserved systolic function (unchanged from prior). Repeat ECG at this time unchanged from prior sinus rhythm with nonspecific ST-T wave changes Physical Examination: General: Alert and oriented x 3. NAD HEENT: NC/AT. Oral mucosa is moist. Neck: No masses, JVD, or carotid bruits Lungs: NRD. SCM. Bilateral air entry. CTA. No wheezing, rales or rhonchi. Cardio: Regular rate. Normal S1 and S2. +S4. PMI was not displaced. Abdomen: Soft. NT. ND. Normal active bowel sounds x 4 quadrants. Extremities: Diminished throughout Neuro: CN II-XII were grossly intact. No obvious focal deficits. Laboratory: [ ] Hematology Labs: Test 05/31/25 03:22 Range/Units White Blood Count 6.8 4.8-10.8 K/uL Red Blood Count 3.33 L 4.00-5.50 MIL/uL Hemoglobin 10.4 L 12.0-16.0 g/dL Hematocrit 31.3 L 36-48 % Mean Corpuscular Volume 94.0 79-99 fL Mean Corpuscular Hemoglobin 31.2 27.0-33.0 pg Mean Corpuscular Hemoglobin Concent 33.2 32.0-36.0 g/dL Red Cell Distribution Width 13.1 11.0-15.5 % Platelet Count 193 130-400 K/uL Mean Platelet Volume 10.3 7.5-10.5 fL Nucleated Red Blood Cells 0.0 0.0-0.19 % Chemistry Labs: Test 06/01/25 05:41 06/01/25 03:20 05/30/25 16:13 05/30/25 09:59 Range/Units Whole Blood Glucose 93 70-110 MG/DL Sodium Level 135 L 136-145 mmol/L Potassium Level 4.1 3.5-5.1 mmol/L Chloride Level 101 101-111 mmol/L Carbon Dioxide Level 26 21-32 mmol/L Blood Urea Nitrogen 25 H 7-18 mg/dL Creatinine 1.2 H 0.5-1.0 mg/dL Glomerular Filtration Rate Calc 49 >90 mL/min Random Glucose 142 H 70-105 mg/dL Total Calcium 8.6 8.5-10.1 mg/dL Magnesium Level 2.10 1.80-2.40 mg/dL Troponin I High Sensitivity *H 4-50 ng/L Bedside Glucose Comment Notified Nurse B-Type Natriuretic Peptide 429 H 0-100 pg/mL Diagnostics / Radiology: [Copy/Paste Echos/Imaging Report here] Impression and Plan: [-ACS-NSTEMI -CAD s/p 3V CABG (SERRANO-LAD, sequential SVG-D1-OM2) -ACS-NSTEMI s/p LHC/coronary angiogram done on 11/18/2024 which identified 3V CAD with 3/3 grafts patent, but 50% stenosis in the ostium of the SVG-D1-OM2, s/p PCI with PTCA and JANY placement (MOF 3.0x18 mm) in the proximal LCx -Unsuccessful PCI of the RCA SUPERVISOR PASTE MIXING 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 ACS-NSTEMI -with a week of the patient is endorsing chest pain with shortness of breath, up trending troponin currently at , her ECG has been relatively unchanged -2D echocardiogram showed LVEF 55-60%, stage I diastolic dysfunction no wall motion abnormalities. -The patient underwent coronary angiogram yesterday showed patent SERRANO-LAD, SVG- D1/OM jump graft with 80-85% proximal and mid stenosis with significant mid segment burden. -Status post IVUS guided PTCA/PCI of the proximal (4.5 x 23 mm JANY) and mid ( x 33 mm JANY) of the SVG to D1/OM jump graft -Complicated by InStent thrombosis in his now status post aspiration thrombectomy of the SVG to D1/OM jump graft, the patient has remained hemodynamically stable tolerated the procedure well -Given the patient's significant clot burden the patient received Integrilin bolus and infusion for a total of 16 hours postprocedure -DAPT for 12 months ([id number] mg daily, ticagrelor 90 mg b.i.d.), atorvastatin 20 mg daily, Coreg 6.25 mg b.i.d. -repeat 2D echocardiogram showed a preserved systolic function, (unchanged from prior) -we will plan to continue trending troponin -Repeat ECG at this time unchanged from prior sinus rhythm with nonspecific ST-T wave changes -if the patient does not endorse any anginal symptoms while working with physical therapy if her troponins begin to downtrend we will consider discharging with the next 24 hours Thank you for this consult cardiology will continue to follow along, Satnam multani MD ATTESTATION BY PHYSICIAN I have seen and examined the patient, reviewed the above documentation, participated in medical decision making, made necessary modifications, and agree with the treatment plan as documented by my mid-level provider above. MD PANDA Keane JAMES R MD Jun 01, 2025 08:51
[2025-06-01 12:10] VITALS: BP 123/65; PULSE 84; RESP 18; TEMP 98.1
--- NOTE | 2025-06-01 13:50 | EKG ---
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
--- NOTE | 2025-06-01 15:31 | NUR ---
[facility] Follow-up: Patient re-assessed by wound healing team. See wound assessment. Assessment and recommendations provided to primary nurse. Education provided.
[2025-06-01 16:10] VITALS: BP 110/58; PULSE 89; RESP 18; TEMP 97.8
--- NOTE | 2025-06-01 17:33 | PN ---
Subjective Review of Systems PROGRESS NOTE Date of Visit: Jun 01, 2025 Time of Visit: 17:33 Events since last encounter NO RECURRENT CP/SOB Subjective REPORTS BREATHING IS BETTER General: No Fever, No Chills, No Night Sweats, No Fatigue, No Malaise, No Appetite, No Other HEENT: No Head Aches, No Visual Changes, No Eye Pain, No Ear Pain, No Dysp hasia, No Sinus Congestion, No Post Nasal Drip, No Sore Throat, No Other Pulmonary: No Dyspnea, No Cough, No Pleuritic Chest Pain, No Other Cardiovascular: No: Chest Pain, Palpitations, Orthopnea, Paroxysmal Noc. Dyspnea, Edema, Lt Headedness, Other Gastrointestinal: No: Nausea, Vomiting, Abdominal Pain, Diarrhea, Constipation, Melena, Hematochezia, Other Genitourinary: No Dysuria, No Frequency, No Incontinence, No Hematuria, No Retention, No Other Musculoskeletal: No: other, neck pain, shoulder pain, arm pain, back pain, hand pain, leg pain, foot pain Skin: No Urticaria, No Rash, No Other Neurological: No: Weakness, Numbness, Incoordination, Change in speech, Confusion, Seizures, Other Objective Vitals and I/O Vital Sign (Last 24 Hours) 06/01/25 06/01/25 07:50 16:10 Temp 97.9 Pulse 89 Resp 18 B/P (MAP) 110/58 Pulse Ox 95 O2 Delivery Room Air O2 Flow Rate 0 FiO2 21 Intake & Output (last 24hrs) 05/31/25 05/31/25 06/01/25 15:00 23:00 07:00 Intake Total 480 ml Output Total 600 ml 800 ml Balance -120 ml -800 ml General: Alert, Oriented X3, Cooperative, No acute distress HEENT: Atraumatic, PERRLA, EOMI Neck: Supple, No JVD Lungs: Clear to auscultation, Normal air movement, NL respiratory effort Heart: Regular rate, Regular rhythm Abdomen: Normal bowel sounds, Soft, No tenderness, No masses Extremities: No clubbing, No cyanosis, No edema, Normal pulses Skin: No rashes, No breakdown Neuro: Normal speech, Normal tone Psych/Mental Status: Mental status NL, Mood NL Results RADIOLOGY: [] EKG: [] Laboratory Tests Test 05/31/25 20:00 06/01/25 03:20 06/01/25 05:41 06/01/25 08:36 Whole Blood Glucose 162 MG/DL (70-110) H 93 MG/DL (70-110) Sodium Level 135 mmol/L (136-145) L Potassium Level 4.1 mmol/L (3.5-5.1) Chloride Level 101 mmol/L (101-111) Carbon Dioxide Level 26 mmol/L (21-32) Blood Urea Nitrogen 25 mg/dL (7-18) H Creatinine 1.2 mg/dL (0.5-1.0) H Glomerular Filtration Rate Calc 49 mL/min (>90) Random Glucose 142 mg/dL (70-105) H Total Calcium 8.6 mg/dL (8.5-10.1) Magnesium Level 2.10 mg/dL (1.80-2.40) Troponin I High Sensitivity 90648 ng/L (4-50) *H 94071 ng/L (4-50) *H Test 06/01/25 11:12 06/01/25 15:40 Whole Blood Glucose 218 MG/DL (70-110) #H 213 MG/DL (70-110) H Medications Current Medications Nitroglycerin 0.4 mg Q5M PRN SL Last administered on 05/31/25at 09:47; Start 05/26/25 at 19:30 Aspirin 325 mg ONCE ONCE PO Last administered on 05/26/25at 19:29; Start 05/26/25 at 19:30; Stop 05/26/25 at 19:31; Status DC Heparin Sodium (Porcine) *calculation based on ACTUAL B... AD PRN IV Last administered on 05/26/25at 21:07; Start 05/26/25 at 22:00; Stop 05/31/25 at 10:1 9; Status DC Heparin Sodium/ Dextrose 250 ml @ 0 mls/hr Q6H IV Last administered on 05/28/25at 06:31; Start 05/26/25 at 22:00; Stop 05/31/25 at 10:19; Status DC Nitroglycerin/ Dextrose 0 ml @ 0 mls/hr AD PRN IV Last administered on 05/26/25at 21:37; Start 05/26/25 at 21:00; Stop 06/25/25 at 20:59 Insulin Human Regular INSULIN SLIDING SCAL... ACHS SQ; Start 05/27/25 at 07:30; Stop 05/27/25 at 00:55; Status DC Acetaminophen 650 mg Q6H PRN PO Last administered on 05/31/25at 09:57; Start 05/26/25 at 21:30; Stop 06/25/25 at 21:29 Ondansetron HCl 4 mg Q6H PRN IVP; Start 05/26/25 at 21:30; Stop 06/25/25 at 21:29 Aspirin 81 mg DAILY PO Last administered on 06/01/25at 09:50; Start 05/27/25 at 09:00; Stop 06/26/25 at 08:59 Atorvastatin Calcium 20 mg HS PO Last administered on 05/31/25at 20:33; Start 05/27/25 at 21:00; Stop 06/26/25 at 20:59 Carvedilol 6.25 mg BID PO Last administered on 06/01/25at 09:50; Start 05/27/25 at 09:00; Stop 06/26/25 at 08:59 Clopidogrel Bisulfate 75 mg DAILY PO Last administered on 05/27/25at 08:05; Start 05/27/25 at 09:00; Stop 05/27/25 at 10:00; Status DC Loratadine 10 mg DAILY PRN PO; Start 05/27/25 at 00:00; Stop 05/27/25 at 22:34; Status DC Nitroglycerin 0.4 mg AD SL; Start 05/27/25 at 00:00; Stop 05/27/25 at 00:08; Status DC Spironolactone 25 mg DAILY PO Last administered on 06/01/25at 09:50; Start 05/27/25 at 09:00; Stop 06/26/25 at 08:59 Sulfasalazine 500 mg BID PO Last administered on 05/31/25at 09:36; Start 05/27/25 at 09:00; Stop 05/31/25 at 14:33; Status DC Home Med BID PO; Start 05/27/25 at 09:00; Stop 05/31/25 at 13:37; Status DC Hydralazine HCl 50 mg BID PO; Start 05/27/25 at 09:00; Stop 05/27/25 at 10:05; Status DC Insulin Glargine 30 units HS SQ Last administered on 05/31/25at 20:36; Start 05/27/25 at 21:00; Stop 06/26/25 at 20:59 Home Med DAILY PO; Start 05/27/25 at 09:00; Stop 06/26/25 at 08:59 Home Med (Magnesium CITRATE (Magnesi... DAILY PO Last administered on 06/01/25at 09:50; Start 05/27/25 at 09:00; Stop 06/26/25 at 08:59 Nifedipine 60 mg DAILY PO Last administered on 06/01/25at 09:50; Start 05/27/25 at 09:00; Stop 06/26/25 at 08:59 Pyridoxine HCl 100 mg DAILY PO Last administered on 06/01/25at 09:50; Start 05/27/25 at 09:00; Stop 06/26/25 at 08:59 Home Med (Sitagliptin Phosphate (Januv... DAILY PO Last administered on 06/01/25at 09:50; Start 05/27/25 at 09:00; Stop 06/26/25 at 08:59 Insulin Human Regular INSULIN SLIDING SCAL... ACHS SQ Last administered on at 16:46; Start 05/27/25 at 07:30; Stop 06/26/25 at 07:29 Dextrose 50 ml AD PRN IV; Start 05/27/25 at 00:30; Stop 05/28/25 at 19:37; Status DC Glucagon 1 mg AD PRN IM; Start 05/27/25 at 00:30; Stop 05/28/25 at 19:37; Status DC Potassium Chloride 100 ml @ 100 mls/hr AD PRN IV; Start 05/27/25 at 00:30; Stop 06/26/25 at 00:29 Potassium Chloride 20 meq AD PRN PO; Start 05/27/25 at 00:30; Stop 06/26/25 at 00:29 Potassium Chloride 20 meq AD PRN PO Last administered on 05/31/25at 09:37; Start 05/27/25 at 00:30; Stop 06/26/25 at 00:29 Potassium Chloride 100 ml @ 50 mls/hr AD PRN IV; Start 05/27/25 at 00:30; Stop 05/27/25 at 06:59; Status DC Magnesium Sulfate 50 ml @ 0 mls/hr PROTOCOL PRN IV Last administered on 05/28/25at 07:51; Start 05/27/25 at 00:30; Stop 06/26/25 at 00:29 Pantoprazole Sodium 40 mg DAILY PO Last administered on 06/01/25at 09:49; Start 05/27/25 at 09:00; Stop 06/26/25 at 08:59 Ticagrelor 180 mg ONCE ONCE PO Last administered on 05/27/25at 11:12; Start 05/27/25 at 10:00; Stop 05/27/25 at 10:06; Status DC Ticagrelor 90 mg BID PO Last administered on 06/01/25at 09:49; Start 05/27/25 at 21:00; Stop 06/26/25 at 20:59 Wound Care/ Dressing Products Left buttock ulcer... BID TP Last administered on 06/01/25at 09:51; Start 05/27/25 at 21:00; Stop 06/26/25 at 20:59 Nystatin 1 APPLICATION BID TP Last administered on 06/01/25at 09:51; Start 05/27/25 at 21:00; Stop 06/26/25 at 20:59 Loratadine 10 mg DAILY PRN PO Last administered on 05/27/25at 22:48; Start 05/27/25 at 22:30; Stop 06/26/25 at 22:29 Loratadine 10 mg ONCE ONCE PO Last administered on 05/27/25at 23:00; Start 05/27/25 at 23:00; Stop 05/27/25 at 23:23; Status DC Lidocaine HCl 20 ml STK-MED ONCE .ROUTE; Start 05/28/25 at 15:10; Stop 05/28/25 at 15:10; Status DC Iohexol 35,000 mg STK-MED ONCE IV; Start 05/28/25 at 15:10; Stop 05/28/25 at 15:10; Status DC Verapamil HCl 5 mg STK-MED ONCE .ROUTE; Start 05/28/25 at 15:10; Stop 05/28/25 at 15:10; Status DC Heparin Sodium (Porcine) 10,000 unit STK-MED ONCE .ROUTE; Start 05/28/25 at 15:10; Stop 05/28/25 at 15:10; Status DC Heparin Sodium/ Sodium Chloride 1,000 ml @ As Directed STK-MED ONCE IV; Start 05/28/25 at 15:10; Stop 05/28/25 at 15:11; Status DC Nitroglycerin 50 mg STK-MED ONCE .ROUTE; Start 05/28/25 at 15:11; Stop 05/28/25 at 15:11; Status DC Fentanyl Citrate 100 mcg STK-MED ONCE .ROUTE; Start 05/28/25 at 16:39; Stop 05/28/25 at 16:39; Status DC Midazolam HCl 2 mg STK-MED ONCE .ROUTE; Start 05/28/25 at 16:40; Stop 05/28/25 at 16:40; Status DC Midazolam HCl 2 mg STK-MED ONCE .ROUTE; Start 05/28/25 at 16:49; Stop 05/28/25 at 16:50; Status DC Fentanyl Citrate 100 mcg STK-MED ONCE .ROUTE; Start 05/28/25 at 17:17; Stop 05/28/25 at 17:18; Status DC Labetalol HCl 20 mg STK-MED ONCE IV; Start 05/28/25 at 17:20; Stop 05/28/25 at 17:20; Status DC Heparin Sodium/ Sodium Chloride 500 ml @ As Directed STK-MED ONCE IV; Start 05/28/25 at 17:40; Stop 05/28/25 at 17:40; Status DC Nicardipine HCl 25 mg STK-MED ONCE IV; Start 05/28/25 at 17:44; Stop 05/28/25 at 17:44; Status DC Eptifibatide 20 mg STK-MED ONCE IVP; Start 05/28/25 at 17:47; Stop 05/28/25 at 17:47; Status DC Iohexol 35,000 mg STK-MED ONCE IV; Start 05/28/25 at 17:54; Stop 05/28/25 at 17:55; Status DC Eptifibatide 100 ml @ As Directed STK-MED ONCE IV; Start 05/28/25 at 17:58; Stop 05/28/25 at 17:58; Status DC Eptifibatide 20 mg STK-MED ONCE IVP; Start 05/28/25 at 17:58; Stop 05/28/25 at 17:58; Status DC Iohexol 75 ml STK-MED ONCE IV; Start 05/28/25 at 18:26; Stop 05/28/25 at 18:26; Status DC Midazolam HCl 2 mg STK-MED ONCE .ROUTE; Start 05/28/25 at 18:38; Stop 05/28/25 at 18:38; Status DC Iohexol 50 ml STK-MED ONCE IV; Start 05/28/25 at 19:10; Stop 05/28/25 at 19:10; Status DC Sodium Chloride 1,000 ml @ 150 mls/hr Q6H40M IV Last administered on 05/28/25at 21:11; Start 05/28/25 at 20:00; Stop 05/28/25 at 23:59; Status DC Dextrose 50 ml AD PRN IV; Start 05/28/25 at 20:00; Stop 06/27/25 at 19:59 Glucagon 1 mg AD PRN IM; Start 05/28/25 at 20:00; Stop 06/27/25 at 19:59 Ondansetron HCl 4 mg STK-MED ONCE .ROUTE; Start 05/28/25 at 19:43; Stop 05/28/25 at 19:43; Status DC Eptifibatide 100 ml @ 0 mls/hr PROTOCOL IV Last administered on 05/29/25at 01:42; Start 05/29/25 at 01:30; Stop 05/31/25 at 10:19; Status DC Furosemide 20 mg Q12H IV Last administered on 05/30/25at 23:33; Start 05/30/25 at 11:00; Stop 05/31/25 at 10:19; Status DC Nitroglycerin 1 inch Q8H TD Last administered on 06/01/25at 10:04; Start 05/31/25 at 10:30; Stop 06/30/25 at 10:29 Furosemide 20 mg DAILY PO Last administered on 06/01/25at 09:50; Start 06/01/25 at 09:00; Stop 07/01/25 at 08:59 Insulin Glargine 10 units ONCE ONCE SQ Last administered on 05/31/25at 13:36; Start 05/31/25 at 13:00; Stop 05/31/25 at 13:01; Status DC Home Med (Glimepiride 4MG TAB) BIDAC PO Last administered on 06/01/25at 16:41; Start 05/31/25 at 16:30; Stop 06/26/25 at 08:59 Home Med sulfaSALAzine 500MG tab DR BID PO Last administered on 06/01/25at 09:51; Start 05/31/25 at 21:00; Stop 06/30/25 at 20:59 Assessment/Plan ASSESSMENT: THIS IS A 69 YR OLD WOMAN WITH HISTORY OF CAD WIHT HX NON STEMI W PEAK TROPONIN 12K - 10/2024 S/P C WITH SUCCESSFUL PTCA/STENT LCX FAILED RCA REVASCULARIZATION WITH DISTAL/PROX RCA PERFORATION, V-FIB ARREST S/P DEFIB X 3 ECHO WITH TRIVIAL PERICARDIAL EFFUSION W/O TAMPONADE RESOLUTION OF PERICARDIAL EFFUSION EF > 55% DM II ON RESIDENTIAL INSULIN CAD WITH HISTORY OF CORONARY STENTS NON STEMI ON 10/29/2023 RCA ANGIOPLASTY ON 11/02/2023 AT [facility] – [place], UNSUCCESSFUL PTCA HYPERTENSIVE HEART AND RENAL DISEASE WITH CKD 2 GERD LUMBAR STENOSIS WITH NEUROGENIC CLAUDICATION OTHER SPECIFIED SPONDYLOPATHY, LUMBAR REGION ATHEROSCLEROSIS OF LEGS BILATERAL RHEUMATOID ARTHRITIS HYPERLIPIDEMIA MIXED OSTEOPOROSIS STATIN MYOPATHY SHE PRESENTED WITH A NONSTEMI WITH PEAK TROPONIN 7,000 2D echocardiogram showed LVEF 55-60%, stage I diastolic dysfunction no wall motion [id number]/3/2025 S/P C patent SERRANO-LAD, SVG-D1/OM jump graft with 80-85% proximal and mid stenosis with significant mid segment burden -05/28/2025 S/P IVUS guided PTCA/PCI of the proximal (4.5 x 23 mm JANY) and mid ( x 33 mm JANY) of the SVG to D1/OM jump graft Complicated by InStent thrombosis S/P Aspiration Thrombectomy of the SVG to D1/OM jump graft 05/28/2025 REPEAT ECHO - Mild ischemic cardiomyopathy with an LVEF of 40-45% by 2D echocardiogram 05/28/2025 Acute systolic congestive heart failure RECURRENT ANGINAL SYMPTOMS ASSOCIATED WITH MINOR EKG CHANGES AND HI TROPONIN PLAN: CARDIOLOGY CONTINUES HER ON COREG, ATORVASTATIN, NIFEDIPINE, DAPT CARDIAC ENZYMES WERE INCREASING AND NOW ON DECLINE CONTINUES CHEST PAIN FREE BLOOD PRESSURE CONTROLLED CARDIOLOGY CLEARING FOR DISCHARGE ON NEW MEDICAL REGIMEN MONITOR GLUCOSE AND ADJUST INSULIN NEEDED SUPPLEMENT ELECTROLYTES UPDATED FAMILY AT BEDSIDE AND UPDATED AND ANSWERED ALL QUESTIONS D/C PLANNING IN PROGRESS BARBARA LARA MD Jun 01, 2025 17:33
--- NOTE | 2025-06-01 18:21 | DS ---
DISCHARGE SUMMARY Date of Visit: Jun 01, 2025 Time of Visit: 18:21 ADMISSION DATE: May 26, 2025 at 21:09 DISCHARGE DATE: Jun 01, 2025 ATTENDED PHYSICIAN: Mariah Reece MD DISCHARGE DIAGNOSIS: NONSTEMI WITH PEAK - 05/26/2025 2D echocardiogram showed LVEF 55-60%, stage I diastolic dysfunction no wall motion [id number]/3/2025 S/P LHC patent SERRANO-LAD, SVG-D1/OM jump graft with 80-85% proximal and mid stenosis with significant mid segment burden -05/28/2025 S/P IVUS guided PTCA/PCI of the proximal (4.5 x 23 mm JANY) and mid ( x 33 mm JANY) of the SVG to D1/OM jump graft Complicated by InStent thrombosis -05/28/2025 S/P Aspiration Thrombectomy of the SVG to D1/OM jump graft 05/28/2025 REPEAT ECHO - Mild ischemic cardiomyopathy with an LVEF of 40-45% by 2D echocardiogram 05/28/2025 Acute systolic congestive heart failure - resolved RECURRENT ANGINAL SYMPTOMS ASSOCIATED WITH MINOR EKG CHANGES AND HI TROPONIN - RESOLVED W MEDICAL MANAGEMENT CAD WITH HX NON STEMI W PEAK TROPONIN 12K - 10/2024 S/P LHC WITH SUCCESSFUL PTCA/STENT LCX - 10/2024 FAILED RCA REVASCULARIZATION WITH DISTAL/PROX RCA PERFORATION, V-FIB ARREST S/P DEFIB X - 10/2024 ECHO WITH TRIVIAL PERICARDIAL EFFUSION W/O TAMPONADE RESOLUTION OF PERICARDIAL EFFUSION EF > 55% DM II ON [facility] [facility] INSULIN CAD WITH HISTORY OF CORONARY STENTS NON STEMI ON 10/29/2023 [place]02[place] [facility] [place]NS[place]CCESSFUL PTCA HYPERTENSIVE HEART AND RENAL DISEASE WITH CKD 2 GERD LUMBAR STENOSIS WITH NEUROGENIC CLAUDICATION OTHER SPECIFIED SPONDYLOPATHY, LUMBAR REGION ATHEROSCLEROSIS OF LEGS BILATERAL RHEUMATOID ARTHRITIS HYPERLIPIDEMIA MIXED OSTEOPOROSIS STATIN MYOPATHY SAMPLE DISTRIBUTOR(S): HE[facility] CL[facility]IC - DR BROOK MULTANI RADIOLOGY: CXR1VW - CHEST 1VW - 05/26/2025 FINDINGS: LUNGS: The lungs show no infiltrate or other acute finding. Mild bibasilar airspace disease is presumed to reflect atelectasis. PLEURAL SPACES: No pleural effusion or pneumothorax. MEDIASTINUM: Prior sternotomy. The cardiomediastinal silhouette is within normal limits. BONES:No acute osseous abnormality. IMPRESSION: No acute cardiopulmonary pathology is evident. 2 D ECHO - 05/26/2025 Conclusion Mild concentric left ventricular hypertrophy. No regional wall motion abnormalities noted. Left ventricular systolic function is normal, estimated LVEF is 55 to 60%. Stage I diastolic dysfunction. Trace mitral regurgitation. Trace tricuspid regurgitation. RVSP is normal. There is no pericardial effusion. 2 DECHO 05/29/2025 Conclusion Limited echocardiogram to assess wall motion, systolic/diastolic function status post PCI. Mild concentric hypertrophy of the left ventricle is noted. There is paradoxical septal wall motion noted. The basal/mid/apical inferior wall is hypokinetic. The apical inferior lateral and apical anterior lateral goodwin are severely hypokinetic. The basal/mid inferior lateral and anterior lateral goodwin are normal in function. The anterior wall is normal in function. Left ventricle systolic function is moderately depressed, estimated LVEF 40 to 45%. Stage I diastolic dysfunction. Trace circumferential pericardial effusion. CXR1VW - CHEST 1VW - 05/30/2025 FINDINGS: Lungs: Left lower lobar thick atelectatic bands. Both pulmonary kira are mildly enlarged. No consolidation or ground-glass opacities are observed. There is no pleural effusion. There is no pneumothorax. Mediastinum and cardiovascular structures: Sternotomy sutures are noted with multiple small radiodense clips related to the left cardiac border. Mildly elevated left diaphragmatic cupola. The cardiac silhouette is not enlarged. The central airway and mediastinal contours are unremarkable. Bones and soft tissues: Unremarkable IMPRESSION: 1. Mildly enlarged pulmonary kira ,mostly congested pulmonary arteries. 2. Left lower lobar thick atelectatic bands. 3. Sternotomy sutures with multiple small radiodense clips related to the left cardiac border. 4. Mildly elevated left diaphragmatic copula. 5. As compared to previous x-ray chest dated 05/26/2025 the current study reveals no time interval changes as regards the left lower lobe thick atelectatic bands, newly developed mildly enlarged pulmonary kira, mostly representing pulmonary congestion however CT angiography is recommended ,still noted sternotomy sutures with multiple small radiodense clips related to the left cardiac border,still noted mildly elevated left diaphragmatic cupola. PROCEDURES: CORONARY ANGIOGRAM: DATE OF PROCEDURE: May 28, 2025 ARMATURE WINDER REPAIR: [ Brook multani MD] RESULTS : LEFT MAIN: Patent and 20-30% distal stenosis. Gives rise to LCx and LAD. LEFT ANTERIOR DESCENDING: Large vessel giving rise to two Diagonal branches. There is 100% mid LAD stenosis just after the first septal artery with JAMIE 0 flow. Fiills distally via patent SERRANO-LAD LEFT CIRCUMFLEX: Large and gives rise to two OM branches. Patent proximal stent with JAMIE III flow RIGHT CORONARY ARTERY: Large, dominant vessel giving rise to PDA and PL branches. 100% proximal STATISTICAL ASSISTANT. GRAFT ANATOMY: SERRANO-LAD widely patent SVG-D1/OM jump graft with 80-85% proximal and mid stenosis with significant mid segment thrombus burden INTERVENTIONS: Status post IVUS guided PTCA/PCI of the proximal (4.5 x 23 mm JANY) and mid (4 x 33 mm JANY) of the SVG to D1/OM jump graft COMPLICATIONS: Complicated by in stent thrombosis and is now Status post aspiration thrombectomy of the SVG to D1/om jump graft FINDINGS: Normal coronary anatomy and severe multivessel CAD RECOMMENDATIONS/INSTRUCTIONS: Aggressive risk factor modification. Patient require 12 months of dual antiplatelet therapy in addition to high- intensity statin therapy and beta-sergio We will continue IV Integrilin infusion for a total of 16 hours postprocedure and monitor with repeat ECG in the morning We will consider medical management given her advanced coronary artery disease with a widely patent left circ stent HOSPITAL COURSE: THIS IS A 69YR OLD WOMAN WITH THE ABOVE PMH WHO PRESENTED WITH A NON-STEMI 05/26/2025. SHE WAS TREATED WITH IV HEPARIN DRIP AND NITROGLYCERIN DRIP AND EVALUATED BY CARDIOLOGY. SHE HAD A 2D echocardiogram showed LVEF 55-60%, stage I diastolic dysfunction no wall motion abnormalities. SHE HAD A FOLLOW UP [facility] WHICH SHOWED PATENT SERRANO-LAD, SVG-D1/OM jump graft with 80-85% proximal and mid stenosis with significant mid segment burden. IVUS guided PTCA/PCI of the proximal (4.5 x 23 mm JANY) and mid ( x 33 mm JANY) of the SVG to D1/OM jump graft WAS Complicated by InStent thrombosis AND HAD AN Aspiration Thrombectomy of the SVG to D1/OM jump graft. SHE WAS TREATED WITH IV Integrilin infusion for a total of 16 hours following the procedure. SHE HAD RECURRENT ANGINAL SYMPTOMS ASSOCIATED WITH ACUTE SYSTOLIC CHF WHICH WAS TREATED WITH IV LASIX AND ADDITIONAL NITRATES. AGAIN HER CARDIAC ENZYME ABDULLAHI AND THEN DECLINED AND REMAINED ASYMPTOMATIC. A REPEAT ECHO SHOWED Mild ischemic cardiomyopathy with an LVEF of 40-45% by 2D echocardiogram 05/28/2025. HER RECURRENT ANGINAL SYMPTOMS RESPONDED WELL TO MEDICAL MANAGEMENT. HER DIET AND ACTIVITY WERE ADVANCED TOLERATED. HER INSULIN WAS ALSO ADJUSTED FOR BETTER HYPERGLYCEMIA CONTROL. ONCE CLEARED FROM CARDIOLOGY STANDPOINT SHE WAS DISCHARGED HOME TO FOLLOW UP AN OUTPATIENT. DIET: ADA HEART HEALTHY ACTIVITY: PROGRESSIVE AMBULATION CONDITION: STABLE EQUIPMENT: NONE FOLLOW UP APPOINTMENT(S): DR REECE IN 2-5 DAYS DISPOSITION: HOME CODE STATUS: FULL MEDICATION RECONCILIATION : ADD ISOSORBIDE MONO 30 MG PO DAILY CHANGE PLAVIX TO BRILLINTA 90 MG PO BID INC LANTUS 42 UNITS DAILY ADD NOVOLIN R 12 UNITS BID PRN GLUCOSE > 250 ^ Home Meds Active Scripts Ticagrelor (Brilinta) 90 Mg Tablet, 1 TAB PO BID for 90 Days, #180 TAB 1 Refill Prov:MARIAH REECE MD 06/01/25 Insulin Regular, Human (Novolin R Flexpen) 100 Unit/Ml (3 Ml) Insuln.pen, 12 UNIT SQ BID PRN for OTHER [SEE ORDER COMMENTS] for 30 Days, #3 EA 3 Refills Prov:MARIAH REECE MD 06/01/25 Isosorbide Mononitrate (Isosorbide Mononitrate ER) 30 Mg Tab.er.24h, 1 TAB PO DAILY for 90 Days, #90 TAB 1 Refill Prov:MARIAH REECE MD 06/01/25 Insulin Glargine,Hum.rec.anlog (Lantus Solostar) 100 Unit/Ml (3 Ml) Insuln.pen, 42 UNIT SQ DAILY for 30 Days, #15 ML 0 Refills Prov:MARIAH REECE MD 06/01/25 Glimepiride (Glimepiride) 4 Mg Tablet, 1 TAB PO BID for 30 Days, #30 TAB 0 Refills Prov:MARIAH REECE MD 05/27/25 Sitagliptin Phosphate (Januvia) 100 Mg Tablet, 1 TAB PO DAILY for 30 Days, #30 TAB 0 Refills Prov:MARIAH REECE MD 05/26/25 Loratadine (Loratadine) 10 Mg Tablet, 1 TAB PO DAILY PRN for NASAL CONGESTION for 30 Days, #30 TAB 0 Refills Prov:MARIAH REECE MD 05/26/25 Sulfasalazine (Sulfas[address]azine Dr) 500 Mg Tablet.dr, 1 TAB PO BID for 30 Days, #120 TAB 0 Refills Prov:MARIAH REECE MD 05/26/25 Nifedipine (Nifedipine ER) 60 Mg Tab.er.24, 1 TAB PO DAILY for 30 Days, #30 TAB 0 Refills Prov:MARIAH REECE MD 05/26/25 Carvedilol (Coreg) 6.25 Mg Tablet, 6.25 MG PO BID, #60 TAB 1 Refill Prov:MARIAH REECE MD 05/26/25 Leflunomide (Leflunomide) 10 Mg Tablet, 10 MG PO DAILY, #90 TAB 1 Refill Prov:MARIAH REECE MD 11/02/23 Aspirin (ASPIRIN 81 MG ECTAB) 81 Mg Ectab, 81 MG PO DAILY for 30 Days, #90 TAB.EC 1 Refill Prov:MARIAH REECE MD 11/02/23 Reported Medications Atorvastatin Calcium (Atorvastatin Calcium) 20 Mg Tablet, 1 TAB PO DAILY for 30 Days, #30 TAB 0 Refills 05/26/25 Nitroglycerin (Nitroglycerin) 0.4 Mg Tab.subl, 1 TAB SL AD for chest pain, #25 TAB 0 Refills 1st sign of attack; may repeat every 5 mins; if pain persists after 3 in 15 min, medical attention is recommended 05/26/25 Spironolactone (Spironolactone) 25 Mg Tablet, 1 TAB PO DAILY for 30 Days, #30 TAB 0 Refills 05/26/25 Pyridoxine HCl (Vitamin B6) (Vitamin B6) 100 Mg/2.5 Ml Liquid, 100 MG PO DAILYLUNCH 11/18/24 Magnesium Amino Acid Chelate (Magnesium) 100 Mg Tablet, 100 MG PO DAILY, TAB 11/18/24 Discontinued Reported Medications Glimepiride (Glimepiride) 4 Mg Tablet, 4 MG PO BID, TAB 11/02/23 Carvedilol (Carvedilol) 3.125 Mg Tablet, 1.25 MG PO BID, TAB 05/26/25 Discontinued Scripts Clopidogrel Bisulfate (Clopidogrel) 75 Mg Tablet, 1 TAB PO DAILY for 30 Days, #30 TAB 0 Refills Prov:MARIAH REECE MD 11/18/24 Nitroglycerin (Nitrostat) 0.4 Mg Tab.subl, 1 TAB SL AD for chest pain, #25 TAB 3 Refills 1st sign of attack; may repeat every 5 mins; if pain persists after 3 in 15 min, medical attention is recommended Prov:MARIAH REECE MD 11/19/24 Atorvastatin Calcium (Atorvastatin Calcium) 40 Mg Tablet, 1 TAB PO DAILY for 100 Days, #100 TAB 1 Refill Prov:MARIAH REECE MD 11/19/24 MARIAH REECE MD Jun 01, 2025 18:21
--- NOTE | 2025-06-01 19:18 | NUR ---
pt left via whealchair to personal vehicle. IVs and telemetry removed by day shift nurse. Pt left with all possessions in their possession.
== END 2025-06-01 19:00 | disposition home or self-care (01) | DRG 359 ==
LOC: EDH 18:49 → EDHIP 21:09 → 2BH 22:58 → 2DH 05-29 19:46
PROVIDERS: ADMIT Internal Medicine; ATTEND Internal Medicine
PROC: 02C03ZZ Extirpation of Matter from Coronary Artery, One Artery, Percutaneous Approach (ICD-10-PCS; principal; 2025-05-28)
PROC: 027035Z Dilation of Coronary Artery, One Artery with Two Drug-eluting Intraluminal Devices, Percutaneous Approach (ICD-10-PCS; 2025-05-28)
PROC: 4A023N7 Measurement of Cardiac Sampling and Pressure, Left Heart, Percutaneous Approach (ICD-10-PCS; 2025-05-28)
PROC: B2181ZZ Fluoroscopy of Left Internal Mammary Bypass Graft using Low Osmolar Contrast (ICD-10-PCS; 2025-05-28)
PROC: B2111ZZ Fluoroscopy of Multiple Coronary Arteries using Low Osmolar Contrast (ICD-10-PCS; 2025-05-28)
PROC: B241ZZ3 Ultrasonography of Multiple Coronary Arteries, Intravascular (ICD-10-PCS; 2025-05-28)
PROC: B5171ZZ Fluoroscopy of Left Subclavian Vein using Low Osmolar Contrast (ICD-10-PCS; 2025-05-28)
DX: I21.4 Non-ST elevation (NSTEMI) myocardial infarction (principal); I50.23 Acute on chronic systolic (congestive) heart failure; L89.322 Pressure ulcer of left buttock, stage 2; I13.0 Hypertensive heart and chronic kidney disease with heart failure and stage 1 through stage 4 chronic kidney disease, or unspecified chronic kidney disease; E87.8 Other disorders of electrolyte and fluid balance, not elsewhere classified; B35.4 Tinea corporis; E11.22 Type 2 diabetes mellitus with diabetic chronic kidney disease; E11.65 Type 2 diabetes mellitus with hyperglycemia; Z79.02 Long term (current) use of antithrombotics/antiplatelets; M06.9 Rheumatoid arthritis, unspecified; N18.30 Chronic kidney disease, stage 3 unspecified; I97.88 Other intraoperative complications of the circulatory system, not elsewhere classified; T82.867A Thrombosis due to cardiac prosthetic devices, implants and grafts, initial encounter; I25.10 Atherosclerotic heart disease of native coronary artery without angina pectoris; K21.9 Gastro-esophageal reflux disease without esophagitis; T46.6X5A Adverse effect of antihyperlipidemic and antiarteriosclerotic drugs, initial encounter; E78.2 Mixed hyperlipidemia; M48.062 Spinal stenosis, lumbar region with neurogenic claudication; Z79.4 Long term (current) use of insulin; Z79.82 Long term (current) use of aspirin; Z79.84 Long term (current) use of oral hypoglycemic drugs; Z79.899 Other long term (current) drug therapy; Z82.49 Family history of ischemic heart disease and other diseases of the circulatory system; Z86.74 Personal history of sudden cardiac arrest; Z88.0 Allergy status to penicillin; Z90.710 Acquired absence of both cervix and uterus; Z95.1 Presence of aortocoronary bypass graft; Z95.5 Presence of coronary angioplasty implant and graft; I25.2 Old myocardial infarction
CPT/HCPCS: 36415; 71045; 80048; 80053; 82948; 83735; 83880; 84100; 84132; 84484; 85025; 85027; 85347; 85610; 85730; 92973; 92978; 93005; 93306; 93308; 93356; 93459; 99156; 99157; 99285; C1769; C1887; C1894; C9604; G0378; J1327; J1644; J1815; J1938; J2250; J2405; J3010; J3475; J3490; Q9967; A4649; C1725; C1753; C1757; C1874; Q9965